=== PATIENT | female | born 1935 | race African-American/Black ===

== ENCOUNTER 2020-02-01 10:15 | Inpatient (IN) | payer MEDICARE, OTHER ==
[~2020-02-01] VITALS: Ht 167.6 cm; Wt 81.2 kg
--- NOTE | 2020-02-01 10:28 | Emergency Room Report ---
History of Present Illness General Chief Complaint: Lower Back Pain or Injury Source: Patient Present Illness HPI , Presents after increased right-sided flank pain. Onset of symptoms last night. Pain is worsened throughout the day. Previous surgery for diverticulitis. States that she had prior history of right-sided weakness from CVA in the past. Reports having normal bowel movements. States she is not been vomiting. 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 Reports urinating normally. Denies any fever. Patient was brought in by EMS. Patient states she previously had rash with Percocet. 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 Patient History Past Medical History: see triage record Reviewed Nursing Documentation: PMH: Agreed; PSxH: Agreed Nursing Documentation-PMH Hx Hypertension: Yes Hx Cerebrovascular Accident: Yes - 2019 Review of Systems All Other Systems: negative except mentioned in HPI Physical Exam Vital Signs Date Time Temp Pulse Resp B/P (MAP) Pulse Ox O2 Delivery O2 Flow Rate FiO2 02/01/20 10:15 98.8 100 18 180/90 (120) 99 Room Air Sp02 EP Interpretation: reviewed, normal General Appearance: normal inspection, alert, GCS 15, Chronically Ill Head: atraumatic ENT: normal ENT inspection, hearing grossly normal, normal voice Neck: normal inspection, full range of motion, supple, no bony tend Respiratory: normal inspection, lungs clear, normal breath sounds, no respiratory distress, no retraction, no wheezing Cardiovascular #1: regular rate, rhythm, no edema Gastrointestinal: normal inspection, normal bowel sounds, non tender, soft, no guarding, no hernia Genitourinary: no CVA tenderness Musculoskeletal: normal inspection, back normal Neurologic: alert, business intelligence engineer III-XII nml as tested, oriented x3, responsive, speech normal, normal inspection, other - right-sided weakness Psychiatric: normal inspection, judgement/insight normal, mood/affect normal Medical Decision Making Diagnostic Impression: Primary Impression: Symptomatic cholelithiasis Additional Impressions: Urinary tract infection Paraplegia ER Course Patient presented for right-sided flank pain. Differential diagnosis include was not limited to kidney stone, pyelonephritis, bowel obstruction, among others. Because of complexity of patient's case laboratory tests and imaging studies were ordered.CT imaging read by radiology showed multiple gallstones as well as scarring to the right lung, there is also noted to be some recently passed 4 mm renal calculus. Patient was given IV antibiotics. She is given pain medications. Dr. Saldana was contacted for inpatient management due to panel physician patient's multiple comorbidities. Labs Test 02/01/20 10:35 02/01/20 11:20 White Blood Count 9.4 K/UL (4.8-10.8) Red Blood Count 6.38 M/UL (4.20-5.40) Hemoglobin 15.5 G/DL (12.0-16.0) Hematocrit 50.1 % (37.0-47.0) Mean Corpuscular Volume 78 FL (80-99) Mean Corpuscular Hemoglobin 24.4 PG (27.0-31.0) Mean Corpuscular Hemoglobin Concent 31.0 G/DL (32.0-36.0) Red Cell Distribution Width 16.5 % (11.6-14.8) Platelet Count 508 K/UL (150-450) Mean Platelet Volume 5.9 FL (6.5-10.1) Neutrophils (%) (Auto) 70.1 % (45.0-75.0) Lymphocytes (%) (Auto) 17.8 % (20.0-45.0) Monocytes (%) (Auto) 6.3 % (1.0-10.0) Eosinophils (%) (Auto) 2.1 % (0.0-3.0) Basophils (%) (Auto) 3.6 % (0.0-2.0) Prothrombin Time 10.7 SEC (9.30-11.50) Prothromb Time International Ratio 1.0 (0.9-1.1) Activated Partial Thromboplast Time 25 SEC (23-33) Sodium Level 139 MMOL/L (136-145) Potassium Level 4.6 MMOL/L (3.5-5.1) Chloride Level 106 MMOL/L (98-107) Carbon Dioxide Level 27 MMOL/L (21-32) Anion Gap 6 mmol/L (5-15) Blood Urea Nitrogen 15 mg/dL (7-18) Creatinine 0.6 MG/DL (0.55-1.30) Estimat Glomerular Filtration Rate > 60 mL/min (>60) Glucose Level 117 MG/DL (74-106) Calcium Level 9.0 MG/DL (8.5-10.1) Total Bilirubin 0.5 MG/DL (0.2-1.0) Aspartate Amino Transf (AST/SGOT) 19 U/L (15-37) Alanine Aminotransferase (ALT/SGPT) 11 U/L (12-78) Alkaline Phosphatase 159 U/L (46-116) Troponin I 0.000 ng/mL (0.000-0.056) Total Protein 7.9 G/DL (6.4-8.2) Albumin 3.4 G/DL (3.4-5.0) Globulin 4.5 g/dL Albumin/Globulin Ratio 0.8 (1.0-2.7) Lipase 104 U/L (73-393) Urine Color Yellow Urine Appearance Cloudy Urine pH 6 (4.5-8.0) Urine Specific [place] 1.020 (1.005-1.035) Urine Protein 1+ (NEGATIVE) Urine Glucose (UA) Negative (NEGATIVE) Urine Ketones Negative (NEGATIVE) Urine Blood Negative (NEGATIVE) Urine Nitrite Negative (NEGATIVE) Urine Bilirubin Negative (NEGATIVE) Urine Urobilinogen Normal MG/DL (0.0-1.0) Urine Leukocyte Esterase 3+ (NEGATIVE) Urine RBC 2-4 /HPF (0 - 2) Urine WBC Tntc /HPF (0 - 2) Urine Squamous Epithelial Cells Moderate /LPF (NONE/OCC) Urine Bacteria Moderate /HPF (NONE) Last Vital Signs Date Time Temp Pulse Resp B/P (MAP) Pulse Ox O2 Delivery O2 Flow Rate FiO2 02/01/20 10:15 98.8 100 18 180/90 (120) 99 Room Air Status: improved Disposition: ADMITTED INPATIENT Condition: Stable Sanjeev Millard MD Feb 01, 2020 10:28
[2020-02-01] MEDS ORDERED: Morphine Sulfate 2mg/ml Inj(IV/IM USE ONLY) IVP ONE (10:30)
--- NOTE | 2020-02-01 10:40 | NUR ---
ED Nurse Note: Pt was brought in by ambulance from home d/t RT sided flank pain that got worsen today at 0500. Pt is AOx4, calm and cooperative, per EMS, pt's a bedridden (-) trauma/injury/fall; mentioned pt's pain has been going on for months already. Pt presents with multiple dry scratches on LT forearm d/t itchiness as pt stated. Pt was placed on bed, hooked to monitor, safety measures in placed.
--- NOTE | 2020-02-01 10:42 | NUR ---
ED Nurse Note: pt taken to CT.
[2020-02-01 10:49] VITALS: BP 180/90
[2020-02-01 10:53] LABS: BASOPHILS % (AUTO) 3.6 % (0.0-2.0); EOSINOPHILS % (AUTO) 2.1 % (0.0-3.0); HEMATOCRIT 50.1 % (37.0-47.0); HEMOGLOBIN 15.5 G/DL (12.0-16.0); LYMPHOCYTES % (AUTO) 17.8 % (20.0-45.0); MEAN CORPUSCULAR VOLUME 78 FL (80-99); MONOCYTES % (AUTO) 6.3 % (1.0-10.0); NEUTROPHILS % (AUTO) 70.1 % (45.0-75.0); PLATELET COUNT 508 K/UL (150-450); RED BLOOD COUNT 6.38 M/UL (4.20-5.40); RED CELL DISTRIBUTION WIDTH 16.5 % (11.6-14.8); WHITE BLOOD COUNT 9.4 K/UL (4.8-10.8)
[2020-02-01 11:02] LABS: ANION GAP 6 mmol/L (5-15); BLOOD UREA NITROGEN 15 mg/dL (7-18); CARBON DIOXIDE 27 MMOL/L (21-32); CHLORIDE 106 MMOL/L (98-107); CREATININE 0.6 MG/DL (0.55-1.30); POTASSIUM 4.6 MMOL/L (3.5-5.1); SODIUM 139 MMOL/L (136-145)
[2020-02-01 11:07] LABS: ALANINE AMINOTRANSFERASE 11 U/L (12-78); ALBUMIN 3.4 G/DL (3.4-5.0); ALBUMIN/GLOBULIN RATIO 0.8 (1.0-2.7); ALKALINE PHOSPHATASE 159 U/L (46-116); ASPARTATE AMINO TRANSFERASE 19 U/L (15-37); BILIRUBIN,TOTAL 0.5 MG/DL (0.2-1.0)
[2020-02-01] MEDS ORDERED: DiphenhydrAMINE 50mg/ml Inj IVP ONE (11:15)
--- NOTE | 2020-02-01 11:31 | NUR ---
ED Nurse Note: Mary Kate Carbone - daughter
--- NOTE | 2020-02-01 12:06 | Diagnostic Imaging Report ---
Indication: Right-sided flank pain Technique: Spiral acquisitions obtained through the abdomen and pelvis. No oral contrast utilized, per emergency room physician request No IV contrast utilized, per referring physician request.. Multiplanar reconstructions were generated. Total dose length product 530 mGycm. CTDIvol(s) 9 mGy. Dose reduction achieved using automated exposure control Comparison: None Findings: No renal or ureteral calculi, hydronephrosis, or hydroureter. There is a 5 mm calculus dependently in the right side of the bladder lumen. Lack of IV contrast limits assessment of the renal parenchyma. No renal parenchymal mass or cyst demonstrated. Lack of IV contrast limits assessment of the other solid organs. The liver is unremarkable. The gallbladder contains multiple gallstones. No biliary ductal dilatation. The pancreas, spleen, adrenals are unremarkable. No retroperitoneal or mesenteric mass or adenopathy. The uterus demonstrates multiple masses, several calcified. No adnexal mass demonstrated. There is a scar in the right anterolateral proximal thigh. There is a small fat-containing umbilical hernia. The bones demonstrate degenerative spondylosis changes and mild lumbar scoliotic deformity. The included lung bases demonstrate some atelectasis and possibly scarring. There is bilateral lower lobe bronchial wall thickening demonstrated. There are severe degenerative changes of the left hip as well as a posttraumatic deformity of the left hip. Lack of enteric contrast limits assessment of the GI tract. There are colonic diverticula. No evidence of acute diverticulitis. The proximal colon is upper limits of normal in caliber, stool-filled. The appendix is normal. No small bowel distention. No free or loculated intraperitoneal gas or fluid is evident. Impression: 5 mm calculus in the right side of the bladder lumen. Acuity indeterminate. Given stated clinical history, possibly recently passed, although there is no hydronephrosis, hydroureter, or other abnormality to suggest such. Limited assessment of the GI tract, due to lack of enteric contrast administration Considerable proximal colonic stool. Correlate with any clinical history of constipation Colonic diverticulosis. No evidence of diverticulitis. Cholelithiasis Fibroid uterus. Evidence of multiple old degenerated calcified fibroids Degenerative changes of the spine and left hip and mild scoliotic deformity. Other findings as noted, including small fat-containing umbilical hernia,, basilar pulmonary atelectatic changes and possible scarring. The CT scanner at [facility] is accredited by the [employer] and the scans are performed using protocols designed to limit radiation exposure to as low as reasonably achievable to attain images of sufficient resolution adequate for diagnostic evaluation.
[2020-02-01 12:09] LABS: APPEARANCE,URINE CLOUDY; BILIRUBIN, URINE NEGATIVE (NEGATIVE); GLUCOSE, URINE (UA) NEGATIVE (NEGATIVE); KETONES,URINE NEGATIVE (NEGATIVE); LEUKOCYTE ESTERASE ,URINE 3+ (NEGATIVE); NITRITE,URINE NEGATIVE (NEGATIVE); PH,URINE 6 (4.5-8.0); PROTEIN,URINE 1+ (NEGATIVE); UROBILINOGEN,URINE NORMAL MG/DL (0.0-1.0)
[2020-02-01 12:10] LABS: COLOR,URINE YELLOW
[2020-02-01 13:00] VITALS: BP 133/74
[2020-02-01] MEDS ORDERED: cefTRIAXone 2 GM in NS 55 ML IVPB ONE (13:30)
[2020-02-01 15:13] VITALS: BP 121/75
--- NOTE | 2020-02-01 15:46 | NUR ---
ED Nurse Note: Report given to DANNI Dunlap in Telemetry Unit.
--- NOTE | 2020-02-01 15:55 | NUR ---
NURSE NOTES: Received report from DANNI Barnes.
[2020-02-01 16:20] VITALS: BP 158/87
[2020-02-01] MEDS ORDERED: GABAPENTIN100 MG ORAL (16:20)
[2020-02-01] MEDS ORDERED: ADALAT10 MG ORAL (16:20)
--- NOTE | 2020-02-01 16:22 | NUR ---
ED Nurse Note: Pt was transferred to Telemetry Unit under the care of Dr. Saldana. report given to DANNI Dunlap. Pt was transferred to stable condition. Family aware of pt transfer. All belongings was sent with pt.
[2020-02-01] MEDS ORDERED: Varibar Pudding 230ml MC PRN (16:45)
[2020-02-01] MEDS ORDERED: Varibar Nectar 240ml MC PRN (16:45)
[2020-02-01] MEDS ORDERED: Varibar Thin Liquid powder 148gm MC PRN (16:45)
[2020-02-01] MEDS ORDERED: Varibar Honey 250ml MC PRN (16:45)
--- NOTE | 2020-02-01 16:46 | History & Physical ---
History and Physical History & Physicial IM H&P CC: R flank pain Active Scripts Medications Dose Route/Sig Max Daily Dose Days Date Category Nifedipine* (Nifedipine) 10 Mg Capsule Unknown Dose ORAL EVERY 6 HOURS 02/01/20 Reported Gabapentin* (Gabapentin) 100 Mg Capsule Unknown Dose ORAL THREE TIMES A DAY 02/01/20 Reported HPI: 84 F h/o CVA p/w R flank pain x 1 day. No FC, no CP, no SOB, no NVDC, marva PO. AFVSS in ER, + UTI, CT urogram with non-obstructing R sided kidney stone. S/ P IVF, benadryl, tylenol and Zofran in ER. Feels better PMH: R BG CVA H/O SBO and GS panc PSH: Lapartomy, endoscopies ALL: Acetaminophen, Lisinopril, Oxycodone MEDS: Nifedipine 90 mg PO qDaily, Gabapentin 300 TID SHX: Prior NHR, lives at home, supportive family, , no RADHA use FHX: N/C ROS: Neg other than HPI PE: Last 24 Hour Vital Signs Date Time Temp Pulse Resp B/P (MAP) Pulse Ox O2 Delivery O2 Flow Rate FiO2 02/01/20 15:13 98.8 99 23 121/75 100 Room Air 02/01/20 13:00 98.8 92 26 133/74 100 Room Air 02/01/20 11:28 98.8 02/01/20 10:49 98.8 18 180/90 99 Room Air 02/01/20 10:15 98.8 100 18 180/90 (120) 99 Room Air Elderly female with dysarthria, AAOx3, slurred speech, baseline R sided weakness NC/AT, OPC c MMM Supple s LAD or JVD CTA RRR RLQ TTP, no RG, S/ND c NABS No C/C/E Laboratory Tests Test 02/01/20 10:35 02/01/20 11:20 White Blood Count 9.4 K/UL (4.8-10.8) Red Blood Count 6.38 M/UL (4.20-5.40) H Hemoglobin 15.5 G/DL (12.0-16.0) Hematocrit 50.1 % (37.0-47.0) H Mean Corpuscular Volume 78 FL (80-99) L Mean Corpuscular Hemoglobin 24.4 PG (27.0-31.0) L Mean Corpuscular Hemoglobin Concent 31.0 G/DL (32.0-36.0) L Red Cell Distribution Width 16.5 % (11.6-14.8) H Platelet Count 508 K/UL (150-450) H Mean Platelet Volume 5.9 FL (6.5-10.1) L Neutrophils (%) (Auto) 70.1 % (45.0-75.0) Lymphocytes (%) (Auto) 17.8 % (20.0-45.0) L Monocytes (%) (Auto) 6.3 % (1.0-10.0) Eosinophils (%) (Auto) 2.1 % (0.0-3.0) Basophils (%) (Auto) 3.6 % (0.0-2.0) H Prothrombin Time 10.7 SEC (9.30-11.50) Prothromb Time International Ratio 1.0 (0.9-1.1) Activated Partial Thromboplast Time 25 SEC (23-33) Sodium Level 139 MMOL/L (136-145) Potassium Level 4.6 MMOL/L (3.5-5.1) Chloride Level 106 MMOL/L (98-107) Carbon Dioxide Level 27 MMOL/L (21-32) Anion Gap 6 mmol/L (5-15) Blood Urea Nitrogen 15 mg/dL (7-18) Creatinine 0.6 MG/DL (0.55-1.30) Estimat Glomerular Filtration Rate > 60 mL/min (>60) Glucose Level 117 MG/DL (74-106) H Calcium Level 9.0 MG/DL (8.5-10.1) Total Bilirubin 0.5 MG/DL (0.2-1.0) Aspartate Amino Transf (AST/SGOT) 19 U/L (15-37) Alanine Aminotransferase (ALT/SGPT) 11 U/L (12-78) L Alkaline Phosphatase 159 U/L (46-116) H Troponin I 0.000 ng/mL (0.000-0.056) Total Protein 7.9 G/DL (6.4-8.2) Albumin 3.4 G/DL (3.4-5.0) Globulin 4.5 g/dL Albumin/Globulin Ratio 0.8 (1.0-2.7) L Lipase 104 U/L (73-393) Urine Color Yellow Urine Appearance Cloudy Urine pH 6 (4.5-8.0) Urine Specific [place] 1.020 (1.005-1.035) Urine Protein 1+ (NEGATIVE) H Urine Glucose (UA) Negative (NEGATIVE) Urine Ketones Negative (NEGATIVE) Urine Blood Negative (NEGATIVE) Urine Nitrite Negative (NEGATIVE) Urine Bilirubin Negative (NEGATIVE) Urine Urobilinogen Normal MG/DL (0.0-1.0) Urine Leukocyte Esterase 3+ (NEGATIVE) H Urine RBC 2-4 /HPF (0 - 2) H Urine WBC Tntc /HPF (0 - 2) H Urine Squamous Epithelial Cells Moderate /LPF (NONE/OCC) H Urine Bacteria Moderate /HPF (NONE) H 02/01/20 CT AP: Impression: 5 mm calculus in the right side of the bladder lumen. Acuity indeterminate. Given stated clinical history, possibly recently passed, although there is no hydronephrosis, hydroureter, or other abnormality to suggest such. Limited assessment of the GI tract, due to lack of enteric contrast administration Considerable proximal colonic stool. Correlate with any clinical history of constipation Colonic diverticulosis. No evidence of diverticulitis. Cholelithiasis Fibroid uterus. Evidence of multiple old degenerated calcified fibroids Degenerative changes of the spine and left hip and mild scoliotic deformity. Other findings as noted, including small fat-containing umbilical hernia,, basilar pulmonary atelectatic changes and possible scarring. 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 Cont[facility] Olivas MD Feb 01, 2020 16:46
--- NOTE | 2020-02-01 17:14 | Infectious Diseases Prog Note ---
Assessment/Plan Assessment/Plan Full consult dictated: A) 1) uti/pyelonephritis 2) pmh noted 3) allergies - noted P) 1) ceftriaxone 2) f/u on urine culture 3) thank you Subjective Allergies: Coded Allergies: ACETAMINOPHEN (Verified Allergy, Unknown, 02/01/20) LISINOPRIL (Verified Allergy, Unknown, 02/01/20) OXYCODONE (Verified Allergy, Unknown, 02/01/20) Objective Last 24 Hour Vital Signs Date Time Temp Pulse Resp B/P (MAP) Pulse Ox O2 Delivery O2 Flow Rate FiO2 02/01/20 15:13 98.8 99 23 121/75 100 Room Air 02/01/20 13:00 98.8 92 26 133/74 100 Room Air 02/01/20 11:28 98.8 02/01/20 10:49 98.8 18 180/90 99 Room Air 02/01/20 10:15 98.8 100 18 180/90 (120) 99 Room Air Height (Feet): 5 Height (Inches): 6.00 Weight (Pounds): 180 Laboratory Tests Test 02/01/20 10:35 02/01/20 11:20 White Blood Count 9.4 K/UL (4.8-10.8) Red Blood Count 6.38 M/UL (4.20-5.40) H Hemoglobin 15.5 G/DL (12.0-16.0) Hematocrit 50.1 % (37.0-47.0) H Mean Corpuscular Volume 78 FL (80-99) L Mean Corpuscular Hemoglobin 24.4 PG (27.0-31.0) L Mean Corpuscular Hemoglobin Concent 31.0 G/DL (32.0-36.0) L Red Cell Distribution Width 16.5 % (11.6-14.8) H Platelet Count 508 K/UL (150-450) H Mean Platelet Volume 5.9 FL (6.5-10.1) L Neutrophils (%) (Auto) 70.1 % (45.0-75.0) Lymphocytes (%) (Auto) 17.8 % (20.0-45.0) L Monocytes (%) (Auto) 6.3 % (1.0-10.0) Eosinophils (%) (Auto) 2.1 % (0.0-3.0) Basophils (%) (Auto) 3.6 % (0.0-2.0) H Prothrombin Time 10.7 SEC (9.30-11.50) Prothromb Time International Ratio 1.0 (0.9-1.1) Activated Partial Thromboplast Time 25 SEC (23-33) Sodium Level 139 MMOL/L (136-145) Potassium Level 4.6 MMOL/L (3.5-5.1) Chloride Level 106 MMOL/L (98-107) Carbon Dioxide Level 27 MMOL/L (21-32) Anion Gap 6 mmol/L (5-15) Blood Urea Nitrogen 15 mg/dL (7-18) Creatinine 0.6 MG/DL (0.55-1.30) Estimat Glomerular Filtration Rate > 60 mL/min (>60) Glucose Level 117 MG/DL (74-106) H Calcium Level 9.0 MG/DL (8.5-10.1) Total Bilirubin 0.5 MG/DL (0.2-1.0) Aspartate Amino Transf (AST/SGOT) 19 U/L (15-37) Alanine Aminotransferase (ALT/SGPT) 11 U/L (12-78) L Alkaline Phosphatase 159 U/L (46-116) H Troponin I 0.000 ng/mL (0.000-0.056) Total Protein 7.9 G/DL (6.4-8.2) Albumin 3.4 G/DL (3.4-5.0) Globulin 4.5 g/dL Albumin/Globulin Ratio 0.8 (1.0-2.7) L Lipase 104 U/L (73-393) Urine Color Yellow Urine Appearance Cloudy Urine pH 6 (4.5-8.0) Urine Specific [place] 1.020 (1.005-1.035) Urine Protein 1+ (NEGATIVE) H Urine Glucose (UA) Negative (NEGATIVE) Urine Ketones Negative (NEGATIVE) Urine Blood Negative (NEGATIVE) Urine Nitrite Negative (NEGATIVE) Urine Bilirubin Negative (NEGATIVE) Urine Urobilinogen Normal MG/DL (0.0-1.0) Urine Leukocyte Esterase 3+ (NEGATIVE) H Urine RBC 2-4 /HPF (0 - 2) H Urine WBC Tntc /HPF (0 - 2) H Urine Squamous Epithelial Cells Moderate /LPF (NONE/OCC) H Urine Bacteria Moderate /HPF (NONE) H Current Medications Medications (Trade) Dose Ordered Sig/Uriel Route PRN Reason Start Time Stop Time Status Last Admin Dose Admin Acetaminophen (Tylenol) 650 mg Q4H PRN ORAL Mild Pain (Pain Scale 1-3) 02/01/20 16:30 03/02/20 16:29 Barium Sulfate (Varibar Honey) 250 ml NOW PRN MC RAD 02/01/20 16:45 02/04/20 16:43 Barium Sulfate (Varibar Wright) 240 ml NOW PRN MC RAD 02/01/20 16:45 02/04/20 16:43 Barium Sulfate (Varibar Pudding) 230 ml NOW PRN RAD 02/01/20 16:45 02/04/20 16:43 Barium Sulfate (Varibar Thin Liquid powder) 148 gm NOW PRN RAD 02/01/20 16:45 02/04/20 16:43 Ceftriaxone Sodium 1 gm/ Dextrose 55 ml @ 110 mls/hr Q24H IVPB 02/02/20 09:00 02/09/20 08:59 Diphenhydramine HCl (Benadryl) 25 mg Q6H PRN ORAL Itching 02/01/20 16:30 03/02/20 16:29 Gabapentin (Neurontin) 300 mg THREE TIMES A DAY ORAL 02/01/20 18:00 03/02/20 17:59 Heparin Sodium (Porcine) (Heparin 5000 units/ml) 5,000 units EVERY 12 HOURS SUBQ 02/01/20 21:00 03/17/20 20:59 Nifedipine (Procardia XL) 30 mg DAILY ORAL 02/02/20 09:00 03/03/20 08:59 Ondansetron HCl (Zofran) 4 mg Q6H PRN IVP Nausea & Vomiting 02/01/20 16:30 03/02/20 16:29 Sodium Chloride 1,000 ml @ 75 mls/hr [id number] IV 02/01/20 16:45 03/02/20 16:44 Darrell Alcazar MD Feb 01, 2020 17:14
[2020-02-01] MEDS ORDERED: cefTRIAXone 1 GM in D5W 55 ML IVPB SCH (18:00)
--- NOTE | 2020-02-01 19:14 | Consultation ---
DATE OF CONSULTATION: 02/01/2020 INFECTIOUS DISEASE CONSULTATION CONSULTING PHYSICIAN: Darrell Alcazar MD. ATTENDING PHYSICIAN: Judd Saldana MD. REFERRING PHYSICIAN: Contreras Olivas MD. REASON FOR CONSULTATION: UTI and pyelonephritis. CHIEF COMPLAINT: Patient's chief complaint coming into the hospital is abdominal discomfort, abdominal pain. HISTORY OF PRESENT ILLNESS: This is a very pleasant 84-year-old female who comes in to [facility] with abdominal pain. She also had right sided flank pain. She has history of diverticulitis in the past. Patient had a CT scan of the abdomen and pelvis, which showed the following. It showed a 5 millimeter calculus with renal stone on the right. Also the CT scan showed no evidence of abscess. Patient's urinalysis was consistent with significant urinary tract infection including too many to count white blood cells and 3+ leukocyte esterase. Patient was empirically started on Rocephin. Urine culture is pending. Case discussed with Dr. Contreras Olivas. Patient has no COVID symptoms such as cough, shortness of breath or productive sputum or fever or chills. Patient will be continued on Rocephin for complicated UTI and pyelonephritis for now. She is allergic to penicillin, but tolerates Rocephin. REVIEW OF SYSTEMS: CONSTITUTIONAL: Generalized fatigue. No focal weakness. She denies any fever, chills, night sweats, or weight loss. HEAD AND NECK: No headache, neck stiffness, thrush, or dysphagia. CARDIAC: No chest pain or palpitations. GASTROINTESTINAL: No nausea, vomiting, or diarrhea. She has abdominal discomfort and right flank pain. PULMONARY: No congestion or shortness of breath. Mild secretions. SKIN: No rash or itching. EXTREMITIES: No extremity pain. NEUROLOGIC: No seizures. Generalized fatigue. No focal weakness. PAST MEDICAL HISTORY: Patient has a past medical history of diverticulitis requiring surgery. She has history of right-sided weakness. She has history of CVA. The CVA caused right-sided weakness. She has history of hypertension. No history of diabetes or cancer mentioned. She has history of weakness and dysarthria. Again, likely secondary to CVA. ALLERGIES: Include acetaminophen, lisinopril, and oxycodone. She also told me penicillin. Tolerates Rocephin. SOCIAL HISTORY: Negative for smoking, alcohol, or drug abuse. FAMILY HISTORY: Noncontributory. No mention of tuberculosis or cancer. MEDICATIONS: Upon reviewing the MAR, she is on following medications. She is on ceftriaxone, nifedipine, heparin, gabapentin or Neurontin. She is on barium sulfate, IV fluids, acetaminophen, Zofran p.r.n., diphenhydramine p.r.n. Outside medications noted and reconciliated. She as an outpatient was on lisinopril. PHYSICAL EXAMINATION: VITAL SIGNS: Temperature is 98.8, pulse rate is 99, respiratory 23, blood pressure 121/75, saturation 100% on room air. GENERAL: Alert, responsive. No acute distress. HEAD AND NECK: Oral exam, no thrush. Eye exam, no icterus. Normocephalic. Neck is supple. No JVD. HEART: Regular. No gallop or murmur. No friction rub. ABDOMEN: Soft. Positive bowel sounds. Nontender. No rebound. LUNGS: Clear bilaterally. No rhonchi or rales. SKIN: No rash or dermatitis. MUSCULOSKELETAL: No septic arthritis. Lower extremities are without cellulitis. PERIPHERAL VASCULAR: No cyanosis or gangrene. GENITOURINARY: No Fernández. She has right-sided CVA tenderness. LINE SITES: Without phlebitis. NEUROLOGIC: Intact. Nonfocal. She has some right-sided weakness. Alert, oriented however. LABORATORY DATA: Creatinine 0.6. White count 9.4, hemoglobin 15.5. UA had too many to count white blood cells, 3+ leukocyte esterase, and moderate bacteria. Urine culture is pending. CT scan of the abdomen and pelvis showed the following. It showed a 5 mm calculus in the right. Shows there was no hydronephrosis at this point. No abscess mentioned. No diverticulitis mentioned on CT scan of the pelvis. ASSESSMENT AND PLAN: 1. Patient has a complicated UTI, renal calculi with right-sided CVA pain thus consistent with pyelonephritis. Patient will be continued on Rocephin for gram-negative coverage. Continue Rocephin for complicated UTI and pyelonephritis. Check urine culture. 2. CVA with right-sided weakness and dysarthria. 3. Kidney stone. 4. Urology been consulted. 5. Hypertension. 6. Blood pressure treatment per Dr. Olivas. 7. History of diverticulitis requiring surgery in the past. 8. No history of diabetes or cancer. 9. Monitor for aspiration with history of CVA and right-sided weakness. 10. No evidence or signs and symptoms of COVID-19 infection. 11. Allergies to acetaminophen, lisinopril, and oxycodone. She also told me penicillin, but that is not documented. I am not clear. She tolerated Rocephin. 12. Family history is noncontributory. 13. Social history is negative. 14. MAR is noted. 15. Case was discussed also with the RN. 16. Case discussed with Dr. Olivas. 17. Continue treatment per primary consultants. Darrell Alcazar M.D. DR: VALORIE JOB#: [id number] CC:
--- NOTE | 2020-02-01 19:45 | NUR ---
NURSE HAND-OFF REPORT: Important Events on Shift: Admission Patient Status: Stable Diet: Pending Orders: N/A Pending Results/Labs:N/A Pending MD notification:N/A Latest Vital Signs: Temperature 98.8 , Pulse 103 , B/P 156 /84 , Respiratory Rate 16 , O2 SAT 99 , Room Air, O2 Flow Rate . Vital Sign Comment: N/A EKG Rhythm: Sinus Tachycardia Rhythm change?: N MD Notified?: - MD Response: Latest Mckinney Fall Score: 55 Fall Risk: High Risk Safety Measures: Call light Within Reach, Bed Alarm Zone 2, Side Rails Side Rails x3, Bed position Low and Locked. Fall Precautions: Yellow Socks Yellow Gown Door Sign Patient Fall Education Report given to DANNI Lawrence.
--- NOTE | 2020-02-01 19:47 | NUR ---
NURSE NOTES: Report received from Fabi RAZO. Patient is awake and alert x 4. Patient is noted to be on room air, no complaints of chest pain or shortness of breath this time. Patient is noted to have garbled speech. This is noted to be from a previous cerebral vascular accident that also left the patient with right sided weakness. Patient does have complaints of slight right sided flank pain, but states that the pain is manageable and does not want pain medication at this time. Patient is noted to have left forearm 20 nneka IV access with fluids running per MD orders. Patient is noted to have to be a recent admission. Admission completed by Fabi RAZO. Bed is locked, alarmed, and in lowest position. Call light in reach. Will continue to follow plan of care.
[2020-02-01 20:00] VITALS: BP 146/96
--- NOTE | 2020-02-01 20:15 | Consultation ---
DATE OF CONSULTATION: 02/01/2020 CONSULTING PHYSICIAN: Mars Arcos MD REFERRING PHYSICIAN: Contreras Olivas MD REASON FOR CONSULTATION: For evaluation of UTI and nephrolithiasis. HISTORY OF PRESENT ILLNESS: This is an 85-year-old female. She was admitted to the hospital because of vague right-sided flank pain. She was noted to have positive UA with white cells and red cells consistent with probable UTI. Urology evaluation has been requested. The patient does have some urinary frequency. Overall, she is a poor historian. Most of the history was obtained from the chart. PAST MEDICAL HISTORY: Significant for hypertension and cerebrovascular accident. PAST SURGICAL HISTORY: Unknown. MEDICATIONS: Current medications in the hospital were reviewed. She is currently on Rocephin, Procardia, heparin, Neurontin, Tylenol, and Zofran. ALLERGIES: Acetaminophen, lisinopril, and oxycodone. SOCIAL HISTORY: Currently nonsmoker. FAMILY HISTORY: Noncontributory. REVIEW OF SYSTEMS: As above. PHYSICAL EXAMINATION: GENERAL: Elderly female in no acute distress. VITAL SIGNS: Temperature is 98.8, blood pressure 152/87, pulse 107, and respirations 18. HEENT: Normocephalic. NECK: Supple. ABDOMEN: Soft. EXTREMITIES: No clubbing or cyanosis. LABORATORY DATA: White count is 9.4, hemoglobin 15.5, and platelets of 508,000. BUN is 15, creatinine 0.6, potassium 4.6. UA shows 1+ protein, 2-4 rbc's, too numerous to count wbc's, moderate bacteria. There are no cultures on record yet. DIAGNOSTIC IMAGING STUDIES: The patient had a CT scan of the abdomen and pelvis. There was mention of a 5 mm calculus in the right side of the bladder lumen, possibly recently passed, although at the time of this imaging study, there was no hydronephrosis noted. IMPRESSION: 1. Pyuria, probable UTI. 2. Flank pain history. 3. Hematuria. 4. Proteinuria. 5. Lower urinary tract symptoms. 6. Rule out neurogenic bladder. 7. Bladder calculus. PLAN AND DISCUSSION: Again, the patient did have vague flank pain and this appears to be improving. UA is consistent with UTI. I would agree with antibiotics as ordered. We will follow up on the cultures and adjust from there. At some point, the patient will need to have cystoscopy electively to evaluate the bladder. The upper tract appeared to be without hydronephrosis at this time. The stone in the bladder may have been a small stone that she just recently passed. I will follow the patient. Any other recommendations will be forthcoming. Thank you for this consultation. Mars Arcos M.D. DR: Juan JOB#: [id number] CC:
[2020-02-01] MEDS: Heparin 5000 units/ml inj SUBQ SCH (20:41)
--- NOTE | 2020-02-01 20:46 | NUR ---
NURSE NOTES: verified with patient about Acetaminophen allergy. Patient states that she does not have an allergy to acetaminophen. Will removed from allergy list, Doctor Deisy aware.
[2020-02-02] VITALS: BP 142/75
[2020-02-02 04:00] VITALS: BP 139/78
--- NOTE | 2020-02-02 07:44 | NUR ---
NURSE NOTES: report received from Howard RAZO, awake and oriented, verbalized needs, HOB elevated, no c/o pain not in distress.
--- NOTE | 2020-02-02 07:53 | NUR ---
NURSE HAND-OFF REPORT: Important Events on Shift: Patient was asleep and stable throught the shift. Patient had no complaints of pain. Patient Status: full code Diet: regular mech soft Pending Orders: cystoscopy Pending Results/Labs:none Pending MD notification:none Latest Vital Signs: Temperature 97.7 , Pulse 98 , B/P 139 /78 , Respiratory Rate 20 , O2 SAT 96 , Room Air, O2 Flow Rate . Vital Sign Comment: within normal limits. EKG Rhythm: Sinus Rhythm Rhythm change?: N MD Notified?: - MD Response: Latest Mckinney Fall Score: 35 Fall Risk: Medium Risk Safety Measures: Call light Within Reach, Bed Alarm Zone 1, Side Rails Side Rails x2, Bed position Low and Locked. Fall Precautions: Yellow Socks Yellow Gown Door Sign Patient Fall Education Report given to Eduarda RAZO.
[2020-02-02 08:00] LABS: BASOPHILS % (AUTO) 3.3 % (0.0-2.0); EOSINOPHILS % (AUTO) 6.8 % (0.0-3.0); HEMATOCRIT 41.5 % (37.0-47.0); HEMOGLOBIN 12.7 G/DL (12.0-16.0); LYMPHOCYTES % (AUTO) 26.6 % (20.0-45.0); MEAN CORPUSCULAR VOLUME 79 FL (80-99); MONOCYTES % (AUTO) 8.7 % (1.0-10.0); NEUTROPHILS % (AUTO) 54.6 % (45.0-75.0); PLATELET COUNT 206 K/UL (150-450); RED BLOOD COUNT 5.26 M/UL (4.20-5.40); RED CELL DISTRIBUTION WIDTH 16.4 % (11.6-14.8); WHITE BLOOD COUNT 5.7 K/UL (4.8-10.8)
[2020-02-02 08:10] VITALS: BP 131/73
[2020-02-02] MEDS: cefTRIAXone 1 GM in D5W 55 ML IVPB SCH (08:44)
[2020-02-02] MEDS: Heparin 5000 units/ml inj SUBQ SCH ×2 (08:45→20:32)
--- NOTE | 2020-02-02 08:56 | Pulmonology Progress Note ---
Simona Rios LASER ENGRAVER 02/02/20 0856: Subjective ROS Limited/Unobtainable: Yes Allergies: Coded Allergies: LISINOPRIL (Verified Allergy, Unknown, 02/01/20) OXYCODONE (Verified Allergy, Unknown, 02/01/20) Subjective reports right lower quadrant pain no BM x 3 days denies CP, SOB no fevers/chills Objective Last 24 Hour Vital Signs Date Time Temp Pulse Resp B/P (MAP) Pulse Ox O2 Delivery O2 Flow Rate FiO2 02/02/20 08:10 98.4 98 20 131/73 (92) 97 02/02/20 04:00 78 02/02/20 04:00 97.7 98 20 139/78 (98) 96 02/02/20 00:00 101 02/02/20 00:00 98.7 98 20 142/75 (97) 97 02/01/20 21:00 Room Air 02/01/20 20:00 114 02/01/20 20:00 98.0 105 20 146/96 (113) 94 02/01/20 16:53 Room Air 02/01/20 16:52 103 02/01/20 16:22 98.8 98 16 156/84 99 Room Air 02/01/20 16:20 107 18 158/87 (110) 97 02/01/20 15:13 98.8 99 23 121/75 100 Room Air 02/01/20 13:00 98.8 92 26 133/74 100 Room Air 02/01/20 11:28 98.8 02/01/20 10:49 98.8 18 180/90 99 Room Air 02/01/20 10:15 98.8 100 18 180/90 (120) 99 Room Air Intake and Output 02/01/20 02/02/20 19:00 07:00 Intake Total 825 ml Balance 825 ml Intake IV Total 825 ml # Voids 2 # Bowel Movements 1 1 General Appearance: other - awake, responsive elderly AA female in NAD HEENT: normocephalic, atraumatic, anicteric, mucous membranes moist Respiratory: lungs clear, no respiratory distress, no accessory muscle use Cardiovascular: normal rate, regular rhythm Abdomen: normal bowel sounds, non distended, other - RLQ tenderenss, no rebound , no guarding, Extremities: no edema Skin: other - patches of vitiligo LE Neurologic: abnormal gait, alert, responsive, other - RSW/chronic, slurred speech Musculoskeletal: atrophy - BLE Microbiology Date/Time Source Procedure Growth Status 02/01/20 11:20 Urine,Clean Catch Urine Culture - Preliminary Resulted Laboratory Tests 02/01/20 10:35: White Blood Count 9.4, Red Blood Count 6.38H, Hemoglobin 15.5, Hematocrit 50.1H , Mean Corpuscular Volume 78L, Mean Corpuscular Hemoglobin 24.4L, Mean Corpuscular Hemoglobin Concent 31.0L, Red Cell Distribution Width 16.5H, Platelet Count 508H, Mean Platelet Volume 5.9L, Neutrophils (%) (Auto) 70.1, Lymphocytes (%) (Auto) 17.8L, Monocytes (%) (Auto) 6.3, Eosinophils (%) (Auto) 2.1, Basophils (%) (Auto) 3.6H, Prothrombin Time 10.7, Prothromb Time International Ratio 1.0, Activated Partial Thromboplast Time 25, Sodium Level 139, Potassium Level 4.6, Chloride Level 106, Carbon Dioxide Level 27, Anion Gap 6, Blood Urea Nitrogen 15, Creatinine 0.6, Estimat Glomerular Filtration Rate > 60, Glucose Level 117H, Calcium Level 9.0, Total Bilirubin 0.5, Aspartate Amino Transf (AST/SGOT) 19, Alanine Aminotransferase (ALT/SGPT) 11L, Alkaline Phosphatase 159H, Troponin I 0.000, Total Protein 7.9, Albumin 3.4, Globulin 4.5, Albumin/Globulin Ratio 0.8L, Lipase 104 02/01/20 11:20: Urine Color Yellow, Urine Appearance Cloudy, Urine pH 6, Urine Specific [place] 1.020, Urine Protein 1+H, Urine Glucose (UA) Negative, Urine Ketones Negative, Urine Blood Negative, Urine Nitrite Negative, Urine Bilirubin Negative, Urine Urobilinogen Normal, Urine Leukocyte Esterase 3+H, Urine RBC 2-4H, Urine WBC TntcH, Urine Squamous Epithelial Cells ModerateH, Urine Bacteria ModerateH 02/02/20 07:00: White Blood Count 5.7, Red Blood Count 5.26, Hemoglobin 12.7, Hematocrit 41.5, Mean Corpuscular Volume 79L, Mean Corpuscular Hemoglobin 24.1L, Mean Corpuscular Hemoglobin Concent 30.6L, Red Cell Distribution Width 16.4H, Platelet Count 206#, Mean Platelet Volume 6.1L, Neutrophils (%) (Auto) 54.6, Lymphocytes (%) (Auto) 26.6, Monocytes (%) (Auto) 8.7, Eosinophils (%) (Auto) 6.8H, Basophils (%) (Auto) 3.3H, Sodium Level [Pending], Potassium Level [ Pending], Chloride Level [Pending], Carbon Dioxide Level [Pending], Blood Urea Nitrogen [Pending], Creatinine [Pending], Estimat Glomerular Filtration Rate [ Pending], Glucose Level [Pending], Calcium Level [Pending] Current Medications Medications (Trade) Dose Ordered Sig/Uriel Route PRN Reason Start Time Stop Time Status Last Admin Dose Admin Acetaminophen (Tylenol) 650 mg Q4H PRN ORAL Mild Pain (Pain Scale 1-3) 02/01/20 16:30 03/02/20 16:29 Barium Sulfate (Varibar Honey) 250 ml NOW PRN MC RAD 02/01/20 16:45 02/04/20 16:43 Barium Sulfate (Varibar [place]) 240 ml NOW PRN MC RAD 02/01/20 16:45 02/04/20 16:43 Barium Sulfate (Varibar Pudding) 230 ml NOW PRN MC RAD 02/01/20 16:45 02/04/20 16:43 Barium Sulfate (Varibar Thin Liquid powder) 148 gm NOW PRN MC RAD 02/01/20 16:45 02/04/20 16:43 Ceftriaxone Sodium 1 gm/ Dextrose 55 ml @ 110 mls/hr Q24H IVPB 02/02/20 09:00 02/09/20 08:59 Diphenhydramine HCl (Benadryl) 25 mg Q6H PRN ORAL Itching 02/01/20 16:30 03/02/20 16:29 Gabapentin (Neurontin) 300 mg THREE TIMES A DAY ORAL 02/01/20 18:00 03/02/20 17:59 02/01/20 18:34 Heparin Sodium (Porcine) (Heparin 5000 units/ml) 5,000 units EVERY 12 HOURS SUBQ 02/01/20 21:00 03/17/20 20:59 02/01/20 20:41 Nifedipine (Procardia XL) 30 mg DAILY ORAL 02/02/20 09:00 03/03/20 08:59 Ondansetron HCl (Zofran) 4 mg Q6H PRN IVP Nausea & Vomiting 02/01/20 16:30 03/02/20 16:29 Sodium Chloride 1,000 ml @ 75 mls/hr [id number] IV 02/01/20 16:45 03/02/20 16:44 02/02/20 05:37 Assessment/Plan Assessment/Plan ASSESSMENT/PROBLEM LIST: * R flank pain 2/2 R sided non-obstructive nephrolithiasis * UTI, possible pyelo * 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 * HTN * constipation * diverticulosis w/out current evidence of diverticulitis with prior hx of exp lap due to SBO PLAN: * tele * continue IVF hydration * Abx: CTx, F/U CX's, ID eval appreciated * Pain control/supportive care * eval appreciated, no hydro at this time; stone in the bladder may have been a small stone that she just recently passed, need cystoscopy later, can be done as OP * Monitor volumes and renal function * BP management iwth CCB, optimize treatment as needed * Aspiration precautions, SPRINKL[employer] WORKER eval * DVT Px: Hep SQ * Bowel regimen * FC case discussed and evaluated by supervising physician Judd Saldana MD 02/02/20 1323: Subjective Allergies: Coded Allergies: LISINOPRIL (Verified Allergy, Unknown, 02/01/20) OXYCODONE (Verified Allergy, Unknown, 02/01/20) Assessment/Plan Assessment/Plan Patient seen and examined with LASER ENGRAVER. Agree with above A&P as it reflects our joint deliberations. Simona Rios NP Feb 02, 2020 08:56 Judd Saldana MD Feb 02, 2020 13:23
--- NOTE | 2020-02-02 09:08 | Urology Progress Note ---
Assessment/Plan Assessment/Plan: 1. Pyuria, probable UTI. 2. Flank pain history. 3. Hematuria. 4. Proteinuria. 5. Lower urinary tract symptoms. 6. Rule out neurogenic bladder. 7. Bladder calculus. monitor clinically abx as ordered f/u on urine cx renal fxn stable cysto later Subjective Allergies: Coded Allergies: LISINOPRIL (Verified Allergy, Unknown, 02/01/20) OXYCODONE (Verified Allergy, Unknown, 02/01/20) Subjective all noted, feels fair vague pain Objective Last 24 Hour Vital Signs Date Time Temp Pulse Resp B/P (MAP) Pulse Ox O2 Delivery O2 Flow Rate FiO2 02/02/20 08:44 98 131/73 02/02/20 08:10 98.4 98 20 131/73 (92) 97 02/02/20 04:00 78 02/02/20 04:00 97.7 98 20 139/78 (98) 96 02/02/20 00:00 101 02/02/20 00:00 98.7 98 20 142/75 (97) 97 02/01/20 21:00 Room Air 02/01/20 20:00 114 02/01/20 20:00 98.0 105 20 146/96 (113) 94 02/01/20 16:53 Room Air 02/01/20 16:52 103 02/01/20 16:22 98.8 98 16 156/84 99 Room Air 02/01/20 16:20 107 18 158/87 (110) 97 02/01/20 15:13 98.8 99 23 121/75 100 Room Air 02/01/20 13:00 98.8 92 26 133/74 100 Room Air 02/01/20 11:28 98.8 02/01/20 10:49 98.8 18 180/90 99 Room Air 02/01/20 10:15 98.8 100 18 180/90 (120) 99 Room Air Intake and Output 02/01/20 02/02/20 19:00 07:00 Intake Total 825 ml Balance 825 ml IV Total 825 ml # Voids 2 # Bowel Movements 1 1 Microbiology Date/Time Source Procedure Growth Status 02/01/20 11:20 Urine,Clean Catch Urine Culture - Preliminary Resulted Current Medications Medications (Trade) Dose Ordered Sig/Ruiel Route PRN Reason Start Time Stop Time Status Last Admin Dose Admin Acetaminophen (Tylenol) 650 mg Q4H PRN ORAL Mild Pain (Pain Scale 1-3) 02/01/20 16:30 03/02/20 16:29 Barium Sulfate (Varibar Honey) 250 ml NOW PRN RAD 02/01/20 16:45 02/04/20 16:43 Barium Sulfate (Varibar [place]) 240 ml NOW PRN RAD 02/01/20 16:45 02/04/20 16:43 Barium Sulfate (Varibar Pudding) 230 ml NOW PRN RAD 02/01/20 16:45 02/04/20 16:43 Barium Sulfate (Varibar Thin Liquid powder) 148 gm NOW PRN RAD 02/01/20 16:45 02/04/20 16:43 Ceftriaxone Sodium 1 gm/ Dextrose 55 ml @ 110 mls/hr Q24H IVPB 02/02/20 09:00 02/09/20 08:59 02/02/20 08:44 Diphenhydramine HCl (Benadryl) 25 mg Q6H PRN ORAL Itching 02/01/20 16:30 03/02/20 16:29 Gabapentin (Neurontin) 300 mg THREE TIMES A DAY ORAL 02/01/20 18:00 03/02/20 17:59 02/02/20 08:44 Heparin Sodium (Porcine) (Heparin 5000 units/ml) 5,000 units EVERY 12 HOURS SUBQ 02/01/20 21:00 03/17/20 20:59 02/02/20 08:45 Nifedipine (Procardia XL) 30 mg DAILY ORAL 02/02/20 09:00 03/03/20 08:59 02/02/20 08:44 Ondansetron HCl (Zofran) 4 mg Q6H PRN IVP Nausea & Vomiting 02/01/20 16:30 03/02/20 16:29 Sodium Chloride 1,000 ml @ 75 mls/hr [id number] IV 02/01/20 16:45 03/02/20 16:44 02/02/20 05:37 Laboratory Tests 02/01/20 10:35: White Blood Count 9.4, Red Blood Count 6.38H, Hemoglobin 15.5, Hematocrit 50.1H , Mean Corpuscular Volume 78L, Mean Corpuscular Hemoglobin 24.4L, Mean Corpuscular Hemoglobin Concent 31.0L, Red Cell Distribution Width 16.5H, Platelet Count 508H, Mean Platelet Volume 5.9L, Neutrophils (%) (Auto) 70.1, Lymphocytes (%) (Auto) 17.8L, Monocytes (%) (Auto) 6.3, Eosinophils (%) (Auto) 2.1, Basophils (%) (Auto) 3.6H, Prothrombin Time 10.7, Prothromb Time International Ratio 1.0, Activated Partial Thromboplast Time 25, Sodium Level 139, Potassium Level 4.6, Chloride Level 106, Carbon Dioxide Level 27, Anion Gap 6, Blood Urea Nitrogen 15, Creatinine 0.6, Estimat Glomerular Filtration Rate > 60, Glucose Level 117H, Calcium Level 9.0, Total Bilirubin 0.5, Aspartate Amino Transf (AST/SGOT) 19, Alanine Aminotransferase (ALT/SGPT) 11L, Alkaline Phosphatase 159H, Troponin I 0.000, Total Protein 7.9, Albumin 3.4, Globulin 4.5, Albumin/Globulin Ratio 0.8L, Lipase 104 02/01/20 11:20: Urine Color Yellow, Urine Appearance Cloudy, Urine pH 6, Urine Specific [place] 1.020, Urine Protein 1+H, Urine Glucose (UA) Negative, Urine Ketones Negative, Urine Blood Negative, Urine Nitrite Negative, Urine Bilirubin Negative, Urine Urobilinogen Normal, Urine Leukocyte Esterase 3+H, Urine RBC 2-4H, Urine WBC TntcH, Urine Squamous Epithelial Cells ModerateH, Urine Bacteria ModerateH 02/02/20 07:00: White Blood Count 5.7, Red Blood Count 5.26, Hemoglobin 12.7, Hematocrit 41.5, Mean Corpuscular Volume 79L, Mean Corpuscular Hemoglobin 24.1L, Mean Corpuscular Hemoglobin Concent 30.6L, Red Cell Distribution Width 16.4H, Platelet Count 206#, Mean Platelet Volume 6.1L, Neutrophils (%) (Auto) 54.6, Lymphocytes (%) (Auto) 26.6, Monocytes (%) (Auto) 8.7, Eosinophils (%) (Auto) 6.8H, Basophils (%) (Auto) 3.3H, Sodium Level [Pending], Potassium Level [ Pending], Chloride Level [Pending], Carbon Dioxide Level [Pending], Blood Urea Nitrogen [Pending], Creatinine [Pending], Estimat Glomerular Filtration Rate [ Pending], Glucose Level [Pending], Calcium Level [Pending] Height (Feet): 5 Height (Inches): 6.00 Weight (Pounds): 175 Objective exam stable urine by tanmay hanson/Mars Felix MD Feb 02, 2020 09:08
[2020-02-02 09:54] LABS: ANION GAP 6 mmol/L (5-15); BLOOD UREA NITROGEN 12 mg/dL (7-18); CALCIUM 8.9 MG/DL (8.5-10.1); CARBON DIOXIDE 29 MMOL/L (21-32); CHLORIDE 111 MMOL/L (98-107); CREATININE 0.7 MG/DL (0.55-1.30); SODIUM 146 MMOL/L (136-145)
[2020-02-02] MEDS ORDERED: Fleet's Enema 133ml RECTAL SCH (10:15)
[2020-02-02] MEDS: Docusate 100mg cap ORAL SCH ×2 (10:37→17:47)
[2020-02-02 12:05] VITALS: BP 142/66
--- NOTE | 2020-02-02 12:13 | NUR ---
CASE MANAGEMENT:INITIAL REVIEW 84 YR OLD FEMALE BIBA FROM HOME CC;LOWER BACK PAIN OR INJURY SI;ABDOMINAL PAIN. SYMPTOMATIC CHOLELITHIASIS. 98.8 107 26 180/90 97% ON RA PLT 508 BG 117 ALP 159 UA+ PROTEIN, LEUKOCYTE ESTERASE, RBC, WBC, SQUAMOUS EPITH CELLS, BACTERIA URINE CX ~ RESULT PENDING ABD/PELVIS CT ~ 5 mm calculus in the right side of the bladder lumen. Acuity indeterminate. Given stated clinical history, possibly recently passed, although there is no hydronephrosis, hydroureter, or other abnormality to suggest such. Cholelithiasis IS;IVF NS BOLUS MORPHINE IV ZOFRAN IV BENADRYL IV ROCEPHIN IV ADMITTED TO TELE TELE STATUS DCP;PATIENT IS FROM HOME
--- NOTE | 2020-02-02 15:34 | NUR ---
NURSE NOTES:WOUND CARE NOTES:Pt presented on admission with Full thickness Pressure Injury Sacrum/R Buttocks. Base of wound is moist,lindsey with scattered areas of Slough, and Biofilm, Borders are irregular. Small amt serosanguineous exudate.(L)7cm x (W)7.5cm x(D)0.2cm. Surrounding non-blanchable erythema with additional shearing periwound. Unstageable Pressure Injury Cleft of Buttocks(L)2.5cm x (W)0.9cm. Base of Pressure Injury is 95% slough,5% lindsey with surrounding non-blanching erythema. Scattered epithelial and hyperpigmentation noted to L buttocks. R lower extremity internally rotated. Xerosis skin Bilat lower ext. An area of hyperpigmentation noted to R tibia. Both heels are non-blanchable but wihtou fluctuance. Pt complained both heels are tender to minimal touch. Tx.Plan: Cleanse wounds Buttocks with Saline. Apply Therahoney . Apply Moisture Barrier Paste Periwound. Cover with Optifoam drsg. Change every 3 days and prn. Moisturize Both lower ext with Phytoplex Lotion. Apply Cavilon Skin Barrier to both heels and Malleoli. Cover each site with Optifoam drsg. Change every 7 days and prn. Reposition at least every 2hours or as tolerated. Off-load heels with Pillow.
[2020-02-02 16:00] VITALS: BP 129/54
[2020-02-02] MEDS ORDERED: 1/2 NS 1000ml IV ONE (16:21)
--- NOTE | 2020-02-02 19:22 | NUR ---
NURSE HAND-OFF REPORT: Important Events on Shift:no acute changes Patient Status: alert and orineted Diet: mech soft Pending Orders: none Pending Results/Labs:none Pending MD notification:n/a Latest Vital Signs: Temperature 98.6 , Pulse 99 , B/P 129 /54 , Respiratory Rate 18 , O2 SAT 97 , Room Air, O2 Flow Rate . Vital Sign Comment: stable EKG Rhythm: Sinus Rhythm Rhythm change?: N MD Notified?: - MD Response: Latest Mckinney Fall Score: 55 Fall Risk: High Risk Safety Measures: Call light Within Reach, Bed Alarm Zone 1, Side Rails Side Rails x2, Bed position Low and Locked. Fall Precautions: Yellow Socks Yellow Gown Door Sign Patient Fall Education Report given to Rios RAZO.
--- NOTE | 2020-02-02 19:25 | NUR ---
NURSE NOTES: Report received from DANNI Lerner. Patient awake, alert, and oriented. Able to verbalize needs. IV intact and flushed. On room air, saturating well. Breathing unlabored and even. Seen resting in bed. No complaints of pain or discomfort at this time. Will follow wound care as planned. Bed in lowest position, brakes engaged, bed alarm on. Bed rails raised x2. Call light placed within reach. Will continue to monitor.
[2020-02-02 20:00] VITALS: BP 133/69
[2020-02-02] MEDS ORDERED: Miralax 17gm pkt ORAL SCH (21:00)
[2020-02-03] VITALS: BP 136/68
[2020-02-03 04:00] VITALS: BP 159/74
--- NOTE | 2020-02-03 05:50 | NUR ---
NURSE NOTES: Patient's IV site noted to be leaking. Informed patient that a new IV needs to be inserted for her to received her IV hydration. 2 RNs tried to convince patient the benefits of her IV hydration. Patient refused.
--- NOTE | 2020-02-03 07:20 | NUR ---
NURSE NOTES: Received report from Rios/DANNI, Observed patient awake,and alert eating breakfast in bed. On room air, no acute distress/SOB noted. Complaining of Itchiness all over the body.No IV access at this time. Bed in low position and locked, Call light within reach. Encouraged to use call light when needed. Bed alarm is on, side rails up x3. Will continue plan of care.
--- NOTE | 2020-02-03 07:25 | NUR ---
NURSE HAND-OFF REPORT: Important Events on Shift:[Patient refused IV access during the shift. Also verbalized wanting to go home.] Patient Status: [FC] Diet: [Regular, mech soft] Pending Orders: [] Pending Results/Labs:[] Pending MD notification:[] Latest Vital Signs: Temperature 97.9 , Pulse 98 , B/P 159 /74 , Respiratory Rate 22 , O2 SAT 97 , Room Air, O2 Flow Rate . Vital Sign Comment: [] EKG Rhythm: Sinus Rhythm Rhythm change?: N MD Notified?: - MD Response: Latest Mckinney Fall Score: 55 Fall Risk: High Risk Safety Measures: Call light Within Reach, Bed Alarm Zone 1, Side Rails Side Rails x2, Bed position Low and Locked. Fall Precautions: Yellow Socks Yellow Gown Door Sign Patient Fall Education Report given to [DANNI Travis].
--- NOTE | 2020-02-03 09:02 | Urology Progress Note ---
Assessment/Plan Assessment/Plan: 1. Pyuria, probable UTI. 2. Flank pain history. 3. Hematuria. 4. Proteinuria. 5. Lower urinary tract symptoms. 6. Rule out neurogenic bladder. 7. Bladder calculus. monitor clinically abx as ordered renal fxn stable cysto later Subjective Allergies: Coded Allergies: LISINOPRIL (Verified Allergy, Unknown, 02/01/20) OXYCODONE (Verified Allergy, Unknown, 02/01/20) Subjective all noted, feels fair vague pain Objective Last 24 Hour Vital Signs Date Time Temp Pulse Resp B/P (MAP) Pulse Ox O2 Delivery O2 Flow Rate FiO2 02/03/20 04:00 98 02/03/20 04:00 97.9 86 22 159/74 (102) 97 02/03/20 00:00 95 02/03/20 00:00 98.8 97 20 136/68 (90) 94 02/02/20 21:00 Room Air 02/02/20 20:00 87 02/02/20 20:00 97.9 90 20 133/69 (90) 97 02/02/20 16:00 98.6 99 18 129/54 (79) 97 02/02/20 16:00 84 02/02/20 12:41 108 02/02/20 12:05 98.3 99 21 142/66 (91) 02/02/20 09:45 Room Air Intake and Output 02/02/20 02/03/20 18:59 06:59 Intake Total 2155 ml 150 ml Output Total 700 ml 400 ml Balance 1455 ml -250 ml Intake Oral 1200 ml 150 ml IV Total 955 ml Output Urine Total 700 ml 400 ml # Voids 1 # Bowel Movements 3 2 Microbiology Date/Time Source Procedure Growth Status 02/01/20 11:20 Urine,Clean Catch Urine Culture - Final Mixed Urogenital Contaminants Complete Current Medications Medications (Trade) Dose Ordered Sig/Uriel Route PRN Reason Start Time Stop Time Status Last Admin Dose Admin Acetaminophen (Tylenol) 650 mg Q4H PRN ORAL Mild Pain (Pain Scale 1-3) 02/01/20 16:30 03/02/20 16:29 Barium Sulfate (Varibar Honey) 250 ml NOW PRN MC RAD 02/01/20 16:45 02/04/20 16:43 Barium Sulfate (Varibar [place]) 240 ml NOW PRN MC RAD 02/01/20 16:45 02/04/20 16:43 Barium Sulfate (Varibar Pudding) 230 ml NOW PRN RAD 02/01/20 16:45 02/04/20 16:43 Barium Sulfate (Varibar Thin Liquid powder) 148 gm NOW PRN RAD 02/01/20 16:45 02/04/20 16:43 Ceftriaxone Sodium 1 gm/ Dextrose 55 ml @ 110 mls/hr Q24H IVPB 02/02/20 09:00 02/09/20 08:59 02/02/20 08:44 Diphenhydramine HCl (Benadryl) 25 mg Q6H PRN ORAL Itching 02/01/20 16:30 03/02/20 16:29 02/03/20 06:45 Docusate Sodium (Colace) 100 mg TWICE A DAY ORAL 02/02/20 10:15 03/03/20 10:14 02/02/20 17:47 Gabapentin (Neurontin) 300 mg THREE TIMES A DAY ORAL 02/01/20 18:00 03/02/20 17:59 02/02/20 17:46 Heparin Sodium (Porcine) (Heparin 5000 units/ml) 5,000 units EVERY 12 HOURS SUBQ 02/01/20 21:00 03/17/20 20:59 02/02/20 20:32 Nifedipine (Procardia XL) 30 mg DAILY ORAL 02/02/20 09:00 03/03/20 08:59 02/02/20 08:44 Ondansetron HCl (Zofran) 4 mg Q6H PRN IVP Nausea & Vomiting 02/01/20 16:30 03/02/20 16:29 Polyethylene Glycol (Miralax) 17 gm BEDTIME ORAL 02/02/20 21:00 03/03/20 20:59 02/02/20 20:29 Sodium Chloride 1,000 ml @ 75 mls/hr [id number] IV 02/02/20 11:00 03/03/20 10:59 02/03/20 00:29 Laboratory Tests 02/02/20 09:30: Sodium Level 146H, Potassium Level 4.0, Chloride Level 111H, Carbon Dioxide Level 29, Anion Gap 6, Blood Urea Nitrogen 12, Creatinine 0.7, Estimat Glomerular Filtration Rate > 60, Glucose Level 97, Calcium Level 8.9 Height (Feet): 5 Height (Inches): 6.00 Weight (Pounds): 175 Objective exam stable Mars Arcos MD Feb 03, 2020 09:02
--- NOTE | 2020-02-03 09:19 | Pulmonology Progress Note ---
Simona Rios HORSER UP 02/03/20 0919: Subjective ROS Limited/Unobtainable: Yes Allergies: Coded Allergies: LISINOPRIL (Verified Allergy, Unknown, 02/01/20) OXYCODONE (Verified Allergy, Unknown, 02/01/20) Subjective RLQ pain much improved had a small BM denies CP, SOB no fevers/chills Objective Last 24 Hour Vital Signs Date Time Temp Pulse Resp B/P (MAP) Pulse Ox O2 Delivery O2 Flow Rate FiO2 02/03/20 04:00 98 02/03/20 04:00 97.9 86 22 159/74 (102) 97 02/03/20 00:00 95 02/03/20 00:00 98.8 97 20 136/68 (90) 94 02/02/20 21:00 Room Air 02/02/20 20:00 87 02/02/20 20:00 97.9 90 20 133/69 (90) 97 02/02/20 16:00 98.6 99 18 129/54 (79) 97 02/02/20 16:00 84 02/02/20 12:41 108 02/02/20 12:05 98.3 99 21 142/66 (91) 02/02/20 09:45 Room Air Intake and Output 02/02/20 02/03/20 19:00 07:00 Intake Total 2155 ml 150 ml Output Total 700 ml 400 ml Balance 1455 ml -250 ml Intake Oral 1200 ml 150 ml IV Total 955 ml Output Urine Total 700 ml 400 ml # Voids 1 # Bowel Movements 3 2 General Appearance: other - awake, responsive elderly AA female in NAD HEENT: normocephalic, atraumatic, anicteric, mucous membranes moist Respiratory: lungs clear, no respiratory distress, no accessory muscle use Cardiovascular: normal rate, regular rhythm Abdomen: normal bowel sounds, non distended, other - RLQ tenderenss, no rebound , no guarding, Extremities: no edema Skin: other - patches of vitiligo LE Neurologic: abnormal gait, alert, responsive, other - RSW/chronic, slurred speech Musculoskeletal: atrophy - BLE Microbiology Date/Time Source Procedure Growth Status 02/01/20 11:20 Urine,Clean Catch Urine Culture - Final Mixed Urogenital Contaminants Complete Laboratory Tests 02/02/20 09:30: Sodium Level 146H, Potassium Level 4.0, Chloride Level 111H, Carbon Dioxide Level 29, Anion Gap 6, Blood Urea Nitrogen 12, Creatinine 0.7, Estimat Glomerular Filtration Rate > 60, Glucose Level 97, Calcium Level 8.9 Current Medications Medications (Trade) Dose Ordered Sig/Uriel Route PRN Reason Start Time Stop Time Status Last Admin Dose Admin Acetaminophen (Tylenol) 650 mg Q4H PRN ORAL Mild Pain (Pain Scale 1-3) 02/01/20 16:30 03/02/20 16:29 Barium Sulfate (Varibar Honey) 250 ml NOW PRN RAD 02/01/20 16:45 02/04/20 16:43 Barium Sulfate (Varibar [place]) 240 ml NOW PRN RAD 02/01/20 16:45 02/04/20 16:43 Barium Sulfate (Varibar Pudding) 230 ml NOW PRN RAD 02/01/20 16:45 02/04/20 16:43 Barium Sulfate (Varibar Thin Liquid powder) 148 gm NOW PRN RAD 02/01/20 16:45 02/04/20 16:43 Ceftriaxone Sodium 1 gm/ Dextrose 55 ml @ 110 mls/hr Q24H IVPB 02/02/20 09:00 02/09/20 08:59 02/02/20 08:44 Diphenhydramine HCl (Benadryl) 25 mg Q6H PRN ORAL Itching 02/01/20 16:30 03/02/20 16:29 02/03/20 06:45 Docusate Sodium (Colace) 100 mg TWICE A DAY ORAL 02/02/20 10:15 03/03/20 10:14 02/02/20 17:47 Gabapentin (Neurontin) 300 mg THREE TIMES A DAY ORAL 02/01/20 18:00 03/02/20 17:59 02/02/20 17:46 Heparin Sodium (Porcine) (Heparin 5000 units/ml) 5,000 units EVERY 12 HOURS SUBQ 02/01/20 21:00 03/17/20 20:59 02/02/20 20:32 Nifedipine (Procardia XL) 30 mg DAILY ORAL 02/02/20 09:00 03/03/20 08:59 02/02/20 08:44 Ondansetron HCl (Zofran) 4 mg Q6H PRN IVP Nausea & Vomiting 02/01/20 16:30 03/02/20 16:29 Polyethylene Glycol (Miralax) 17 gm BEDTIME ORAL 02/02/20 21:00 03/03/20 20:59 02/02/20 20:29 Sodium Chloride 1,000 ml @ 75 mls/hr [id number] IV 02/02/20 11:00 03/03/20 10:59 02/03/20 00:29 Assessment/Plan Assessment/Plan ASSESSMENT/PROBLEM LIST: * R flank pain 2/2 R sided non-obstructive nephrolithiasis * UTI, possible pyelo * 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 * HTN * constipation * diverticulosis w/out current evidence of diverticulitis with prior hx of exp lap due to SBO PLAN: * tele * continue IVF hydration * Abx: CTx, UCX + mixed nita , fup with further ID recs * Pain control/supportive care * eval appreciated, no hydro at this time; stone in the bladder may have been a small stone that she just recently passed, need cystoscopy later, can be done as OP * Monitor volumes and renal function * BP management iwth CCB, optimize treatment as needed * Aspiration precautions, STONE RIGGER eval * DVT Px: Hep SQ * Bowel regimen, had BM, need along term * FC * transfer to [facility] floor case discussed and evaluated by supervising physician Judd Saldana MD 02/03/20 1345: Subjective Allergies: Coded Allergies: LISINOPRIL (Verified Allergy, Unknown, 02/01/20) OXYCODONE (Verified Allergy, Unknown, 02/01/20) Assessment/Plan Assessment/Plan Patient seen and examined with HORSER UP. Agree with above A&P as it reflects our joint deliberations. Simona Rios HORSER UP Feb 03, 2020 09:19 Judd Saldana MD Feb 03, 2020 13:45
[2020-02-03] MEDS: Docusate 100mg cap ORAL SCH ×2 (09:46→17:03)
[2020-02-03] MEDS: cefTRIAXone 1 GM in D5W 55 ML IVPB SCH (09:47)
[2020-02-03] MEDS: Heparin 5000 units/ml inj SUBQ SCH ×2 (09:48→20:52)
[2020-02-03 10:20] LABS: BASOPHILS % (AUTO) 1.5 % (0.0-2.0); EOSINOPHILS % (AUTO) 4.9 % (0.0-3.0); HEMATOCRIT 44.4 % (37.0-47.0); HEMOGLOBIN 13.6 G/DL (12.0-16.0); MEAN CORPUSCULAR VOLUME 79 FL (80-99); NEUTROPHILS % (AUTO) 57.5 % (45.0-75.0); PLATELET COUNT 448 K/UL (150-450); RED BLOOD COUNT 5.59 M/UL (4.20-5.40); RED CELL DISTRIBUTION WIDTH 16.6 % (11.6-14.8); WHITE BLOOD COUNT 6.7 K/UL (4.8-10.8)
[2020-02-03 10:26] LABS: ANION GAP 7 mmol/L (5-15); BLOOD UREA NITROGEN 9 mg/dL (7-18); CALCIUM 8.1 MG/DL (8.5-10.1); CARBON DIOXIDE 29 MMOL/L (21-32); CHLORIDE 111 MMOL/L (98-107); CREATININE 0.7 MG/DL (0.55-1.30); POTASSIUM 3.8 MMOL/L (3.5-5.1); SODIUM 147 MMOL/L (136-145)
--- NOTE | 2020-02-03 11:38 | NUR ---
NURSE NOTES: Patient transferred from Tele 214-2 to 401-2; I received report from Angy RN; patient awake, alert x2, confused, forgetful; on room air, no sing of shortness of breath; no sing of distress and chest pain; IV Left For-arm, 1/2NS @75cc running; wound picture taken upon receiving patient and wound care provided; belonging lists crossed match and signed by transferring and receiving nurses. side rails up x2, breaks engaged, bed at lowest position, bed alarm on; call light within reach; will keep monitoring.
--- NOTE | 2020-02-03 11:40 | NUR ---
TRANSFER TO FLOOR: Patient transferred to [facility].[address], room 401-2 Per Simona Rios HORSES OR MULES TEAMSTER. Report given to Delmi/DANNI. Belonging check done with receiving nurse. Patient is in stable condition. Endorsed plan of care.
[2020-02-03 12:00] VITALS: BP 146/84
--- NOTE | 2020-02-03 15:38 | Infectious Diseases Prog Note ---
Assessment/Plan Assessment/Plan ASSESSMENT AND PLAN: 1. uti, pyelonephritis, complicated uti, renal calculi - ceftriaxone - day # 3 - urine culture with mixed organisms - f/u urinalysis with reflex - monitor labs 2. CVA with right-sided weakness and dysarthria. 3. Kidney stone. 4. Urology been consulted. 5. Hypertension. 6. Blood pressure treatment per Dr. Olivas. 7. History of diverticulitis requiring surgery in the past. 8. No history of diabetes or cancer. 9. Monitor for aspiration with history of CVA and right-sided weakness. 10. No evidence or signs and symptoms of COVID-19 infection. 11. Allergies to acetaminophen, lisinopril, and oxycodone. She also told me penicillin, but that is not documented. I am not clear. She tolerated Rocephin. 12. Family history is noncontributory. 13. Social history is negative. 14. MAR is noted. 15. Case was discussed also with the RN. 16. Case discussed with Dr. Olivas. 17. Continue treatment per primary consultants. Subjective Constitutional: Denies: fever HEENT: Denies: congestion Respiratory: Denies: shortness of breath Cardiovascular: Denies: chest pain Gastrointestinal/Abdominal: Denies: nausea, vomiting, diarrhea Genitourinary: Reports: other - no garcia Neurologic: Denies: headache Psychiatric: Denies: depression Skin: Denies: rash Hematologic: Denies: bleeding Musculoskeletal: Denies: pain Allergies: Coded Allergies: LISINOPRIL (Verified Allergy, Unknown, 02/01/20) OXYCODONE (Verified Allergy, Unknown, 02/01/20) Objective Last 24 Hour Vital Signs Date Time Temp Pulse Resp B/P (MAP) Pulse Ox O2 Delivery O2 Flow Rate FiO2 02/03/20 12:00 97.5 95 18 146/84 (104) 95 02/03/20 09:47 86 129/65 02/03/20 09:00 Room Air 02/03/20 08:00 102 02/03/20 04:00 98 02/03/20 04:00 97.9 86 22 159/74 (102) 97 02/03/20 00:00 95 02/03/20 00:00 98.8 97 20 136/68 (90) 94 9/12/20 21:00 Room Air 02/02/20 20:00 87 02/02/20 20:00 97.9 90 20 133/69 (90) 97 02/02/20 16:00 98.6 99 18 129/54 (79) 97 02/02/20 16:00 84 Height (Feet): 5 Height (Inches): 6.00 Weight (Pounds): 175 General Appearance: no acute distress HEENT: normocephalic, atraumatic, anicteric, mucous membranes moist Respiratory/Chest: lungs clear, normal breath sounds, no respiratory distress, no accessory muscle use Cardiovascular: normal rate, regular rhythm, no gallop/murmur, no JVD Abdomen: normal bowel sounds, soft, non tender, no organomegaly, non distended Genitourinary: other - no garcia, less cva pain Extremities: no cyanosis Skin: no rash Neurologic/Psychiatric: rehabilitation supervisor II-XII grossly normal, alert, oriented x 3, responsive Lymphatic: no neck adenopathy Musculoskeletal: no effusion CT abdomen and pelvis: Impression: 5 mm calculus in the right side of the bladder lumen. Acuity indeterminate. Given stated clinical history, possibly recently passed, although there is no hydronephrosis, hydroureter, or other abnormality to suggest such. Limited assessment of the GI tract, due to lack of enteric contrast administration Considerable proximal colonic stool. Correlate with any clinical history of constipation Colonic diverticulosis. No evidence of diverticulitis. Cholelithiasis Fibroid uterus. Evidence of multiple old degenerated calcified fibroids Degenerative changes of the spine and left hip and mild scoliotic deformity. Other findings as noted, including small fat-containing umbilical hernia,, basilar pulmonary atelectatic changes and possible scarring. Microbiology Date/Time Source Procedure Growth Status 02/01/20 11:20 Urine,Clean Catch Urine Culture - Final Mixed Urogenital Contaminants Complete Laboratory Tests Test 02/03/20 09:40 White Blood Count 6.7 K/UL (4.8-10.8) Red Blood Count 5.59 M/UL (4.20-5.40) H Hemoglobin 13.6 G/DL (12.0-16.0) Hematocrit 44.4 % (37.0-47.0) Mean Corpuscular Volume 79 FL (80-99) L Mean Corpuscular Hemoglobin 24.3 PG (27.0-31.0) L Mean Corpuscular Hemoglobin Concent 30.6 G/DL (32.0-36.0) L Red Cell Distribution Width 16.6 % (11.6-14.8) H Platelet Count 448 K/UL (150-450) # Mean Platelet Volume 6.5 FL (6.5-10.1) Neutrophils (%) (Auto) 57.5 % (45.0-75.0) Lymphocytes (%) (Auto) 27.0 % (20.0-45.0) Monocytes (%) (Auto) 9.0 % (1.0-10.0) Eosinophils (%) (Auto) 4.9 % (0.0-3.0) H Basophils (%) (Auto) 1.5 % (0.0-2.0) Sodium Level 147 MMOL/L (136-145) H Potassium Level 3.8 MMOL/L (3.5-5.1) Chloride Level 111 MMOL/L (98-107) H Carbon Dioxide Level 29 MMOL/L (21-32) Anion Gap 7 mmol/L (5-15) Blood Urea Nitrogen 9 mg/dL (7-18) Creatinine 0.7 MG/DL (0.55-1.30) Estimat Glomerular Filtration Rate > 60 mL/min (>60) Glucose Level 87 MG/DL (74-106) Calcium Level 8.1 MG/DL (8.5-10.1) L Current Medications Medications (Trade) Dose Ordered Sig/Uriel Route PRN Reason Start Time Stop Time Status Last Admin Dose Admin Acetaminophen (Tylenol) 650 mg Q4H PRN ORAL Mild Pain (Pain Scale 1-3) 02/03/20 12:30 03/02/20 16:29 Barium Sulfate (Varibar Honey) 250 ml NOW PRN RAD 02/03/20 16:45 02/04/20 16:43 Barium Sulfate (Varibar [place]) 240 ml NOW PRN RAD 02/03/20 16:45 02/04/20 16:43 Barium Sulfate (Varibar Pudding) 230 ml NOW PRN RAD 02/03/20 16:45 02/04/20 16:43 Barium Sulfate (Varibar Thin Liquid powder) 148 gm NOW PRN RAD 02/03/20 16:45 02/04/20 16:43 Ceftriaxone Sodium 1 gm/ Dextrose 55 ml @ 110 mls/hr Q24H IVPB 02/04/20 09:00 02/09/20 08:59 Diphenhydramine HCl (Benadryl) 25 mg Q6H PRN ORAL Itching 02/03/20 12:00 03/02/20 11:59 Docusate Sodium (Colace) 100 mg TWICE A DAY ORAL 02/03/20 18:00 03/03/20 10:14 Gabapentin (Neurontin) 300 mg THREE TIMES A DAY ORAL 02/03/20 13:00 03/02/20 17:59 02/03/20 12:24 Heparin Sodium (Porcine) (Heparin 5000 units/ml) 5,000 units EVERY 12 HOURS SUBQ 02/03/20 21:00 03/17/20 20:59 Nifedipine (Procardia XL) 30 mg DAILY ORAL 02/04/20 09:00 03/03/20 08:59 Ondansetron HCl (Zofran) 4 mg Q6H PRN IVP Nausea & Vomiting 02/03/20 12:00 03/02/20 11:59 Polyethylene Glycol (Miralax) 17 gm BEDTIME ORAL 02/03/20 21:00 03/03/20 20:59 Sodium Chloride 1,000 ml @ 75 mls/hr [id number] IV 02/03/20 11:30 03/03/20 10:59 02/03/20 12:26 Darrell Alcazar MD Feb 03, 2020 15:38
[2020-02-03 16:00] VITALS: BP 118/69
[2020-02-03] MEDS ORDERED: Varibar Nectar 240ml MC PRN (16:45)
[2020-02-03] MEDS ORDERED: Varibar Pudding 230ml MC PRN (16:45)
[2020-02-03] MEDS ORDERED: Varibar Thin Liquid powder 148gm MC PRN (16:45)
[2020-02-03] MEDS ORDERED: Varibar Honey 250ml MC PRN (16:45)
--- NOTE | 2020-02-03 16:49 | Consultation ---
History of Present Illness General Date patient seen: Feb 03, 2020 Reason for Hospitalization: Lower Back Pain or Injury Present Illness HPI This is a 84-year-old female multi-medical morbidities who presented to [facility] complaining of flank and abdominal pain. Was admitted for care management and work-up. Surgery was called to evaluate and assist with care. Patient seen, patient evaluated, chart reviewed. Patient states now she is feeling better since admission. Was given pain medication since pain is not resulted or resumed. Currently no nausea vomiting fever chills. Tolerating diet. No complaints. Allergies: Coded Allergies: LISINOPRIL (Verified Allergy, Unknown, 02/01/20) OXYCODONE (Verified Allergy, Unknown, 02/01/20) COVID-19 Screening Contact w/high risk pt: No Experienced COVID-19 symptoms?: No Medication History Scheduled Cefuroxime Axetil* (Cefuroxime*), 500 MG PO Q12HR Docusate Sodium* (Colace*), 100 MG ORAL TWICE A DAY Gabapentin* (Gabapentin*), 300 MG ORAL THREE TIMES A DAY, (Reported) Nifedipine Xl* (Procardia Xl*), 30 MG ORAL DAILY Polyethylene Glycol 3350 (Miralax), 17 GM ORAL BEDTIME Discontinued Medications Nifedipine (Nifedipine*), Unknown Dose ORAL EVERY 6 HOURS, (Reported) Discontinued Reason: Prescription changed Nifedipine Er* (Nifedipine Er*), 90 MG ORAL BEDTIME, (Reported) Discontinued Reason: Medication dose changed Patient History Limited by: age, medical condition History Provided By: Patient, Medical Record, PMD Healthcare decision maker Resuscitation status Advanced Directive on File Past Medical/Surgical History Past Medical/Surgical History: (1) Urinary tract infection (2) Paraplegia (3) Symptomatic cholelithiasis (4) Nephrolithiasis (5) UTI (urinary tract infection) Review of Systems Review of Symptoms General ROS: no weight loss or fever Psychological ROS: no depression or mood changes, no memory loss Ophthalmic ROS: no visual changes or eye irritation ENT ROS: no nasal congestion, hearing loss, dizziness Allergy and Immunology ROS: no allergic symptoms or urticaria Hematological and Lymphatic ROS: no swollen glands, unusual bleeding or bruising Endocrine ROS: no polyuria, polydipsia, weight changes, temperature intolerance Respiratory ROS: no cough, shortness of breath, or wheezing Cardiovascular ROS: no chest pain or dyspnea on exertion Gastrointestinal ROS: denies abdominal pain, bright red blood in stool. Musculoskeletal ROS: no myalgias or arthralgias Neurological ROS: no TIA or stroke symptoms Dermatological ROS: no new or changing skin lesions, rashes or pruritis Physical Exam Physical Exam General appearance: alert, cooperative, no distress, appears stated age Head: Normocephalic, without obvious abnormality, atraumatic Eyes: conjunctivae/corneas clear. PERRL, EOM's intact. Fundi benign Throat: Lips, mucosa, and tongue normal. Teeth and gums normal Neck: supple, symmetrical, trachea midline, no adenopathy, thyroid: not enlarged, symmetric, no tenderness/mass/nodules, no carotid bruit and no JVD Lungs: clear to auscultation bilaterally Heart: regular rate and rhythm, S1, S2 normal, no murmur, click, rub or gallop Abdomen: soft, non-tender. Bowel sounds normal. No masses, no organomegaly Extremities: extremities normal, atraumatic, no cyanosis or edema Pulses: 2+ and symmetric Skin: Skin color, texture, turgor normal. No rashes or lesions Neurologic: Grossly normal Last 24 Hour Vital Signs Date Time Temp Pulse Resp B/P (MAP) Pulse Ox O2 Delivery O2 Flow Rate FiO2 02/03/20 16:00 97.9 88 18 118/69 (85) 97 02/03/20 12:00 97.5 95 18 146/84 (104) 95 02/03/20 09:47 86 129/65 02/03/20 09:00 Room Air 02/03/20 08:00 102 02/03/20 04:00 98 02/03/20 04:00 97.9 86 22 159/74 (102) 97 02/03/20 00:00 95 02/03/20 00:00 98.8 97 20 136/68 (90) 94 02/02/20 21:00 Room Air 02/02/20 20:00 87 02/02/20 20:00 97.9 90 20 133/69 (90) 97 Intake and Output 02/02/20 02/03/20 19:00 07:00 Intake Total 2155 ml 150 ml Output Total 700 ml 400 ml Balance 1455 ml -250 ml Intake Oral 1200 ml 150 ml IV Total 955 ml Output Urine Total 700 ml 400 ml # Voids 1 # Bowel Movements 3 2 Laboratory Tests Test 02/03/20 09:40 White Blood Count 6.7 K/UL (4.8-10.8) Red Blood Count 5.59 M/UL (4.20-5.40) H Hemoglobin 13.6 G/DL (12.0-16.0) Hematocrit 44.4 % (37.0-47.0) Mean Corpuscular Volume 79 FL (80-99) L Mean Corpuscular Hemoglobin 24.3 PG (27.0-31.0) L Mean Corpuscular Hemoglobin Concent 30.6 G/DL (32.0-36.0) L Red Cell Distribution Width 16.6 % (11.6-14.8) H Platelet Count 448 K/UL (150-450) # Mean Platelet Volume 6.5 FL (6.5-10.1) Neutrophils (%) (Auto) 57.5 % (45.0-75.0) Lymphocytes (%) (Auto) 27.0 % (20.0-45.0) Monocytes (%) (Auto) 9.0 % (1.0-10.0) Eosinophils (%) (Auto) 4.9 % (0.0-3.0) H Basophils (%) (Auto) 1.5 % (0.0-2.0) Sodium Level 147 MMOL/L (136-145) H Potassium Level 3.8 MMOL/L (3.5-5.1) Chloride Level 111 MMOL/L (98-107) H Carbon Dioxide Level 29 MMOL/L (21-32) Anion Gap 7 mmol/L (5-15) Blood Urea Nitrogen 9 mg/dL (7-18) Creatinine 0.7 MG/DL (0.55-1.30) Estimat Glomerular Filtration Rate > 60 mL/min (>60) Glucose Level 87 MG/DL (74-106) Calcium Level 8.1 MG/DL (8.5-10.1) L Height (Feet): 5 Height (Inches): 6.00 Weight (Pounds): 175 Medications Current Medications Medications (Trade) Dose Ordered Sig/Uriel Route PRN Reason Start Time Stop Time Status Last Admin Dose Admin Acetaminophen (Tylenol) 650 mg Q4H PRN ORAL Mild Pain (Pain Scale 1-3) 02/03/20 12:30 03/02/20 16:29 Barium Sulfate (Varibar Honey) 250 ml NOW PRN RAD 02/03/20 16:45 02/04/20 16:43 Barium Sulfate (Varibar [place]) 240 ml NOW PRN RAD 02/03/20 16:45 02/04/20 16:43 Barium Sulfate (Varibar Pudding) 230 ml NOW PRN RAD 02/03/20 16:45 02/04/20 16:43 Barium Sulfate (Varibar Thin Liquid powder) 148 gm NOW PRN RAD 02/03/20 16:45 02/04/20 16:43 Ceftriaxone Sodium 1 gm/ Dextrose 55 ml @ 110 mls/hr Q24H IVPB 02/04/20 09:00 02/09/20 08:59 Diphenhydramine HCl (Benadryl) 25 mg Q6H PRN ORAL Itching 02/03/20 12:00 03/02/20 11:59 Docusate Sodium (Colace) 100 mg TWICE A DAY ORAL 02/03/20 18:00 03/03/20 10:14 Gabapentin (Neurontin) 300 mg THREE TIMES A DAY ORAL 02/03/20 13:00 03/02/20 17:59 02/03/20 12:24 Heparin Sodium (Porcine) (Heparin 5000 units/ml) 5,000 units EVERY 12 HOURS SUBQ 02/03/20 21:00 03/17/20 20:59 Nifedipine (Procardia XL) 30 mg DAILY ORAL 02/04/20 09:00 03/03/20 08:59 Ondansetron HCl (Zofran) 4 mg Q6H PRN IVP Nausea & Vomiting 02/03/20 12:00 03/02/20 11:59 Polyethylene Glycol (Miralax) 17 gm BEDTIME ORAL 02/03/20 21:00 03/03/20 20:59 Sodium Chloride 1,000 ml @ 75 mls/hr [id number] IV 02/03/20 11:30 03/03/20 10:59 02/03/20 12:26 Assessment/Plan Problem List: (1) Urinary tract infection ICD Codes: N39.0 - Urinary tract infection, site not specified SNOMED: 06701726 (2) Paraplegia Assessment & Plan: Pt presented on admission with Full thickness Pressure Injury Sacrum/R Buttocks. Base of wound is moist,lindsey with scattered areas of Slough, and Biofilm, Borders are irregular. Small amt serosanguineous exudate.(L )7cm x (W)7.5cm x(D)0.2cm. Surrounding non-blanchable erythema with additional shearing periwound. Unstageable Pressure Injury Maria D Cleft of Buttocks(L)2.5cm x (W)0.9cm. Base of Pressure Injury is 95% slough,5% lindsey with surrounding non-blanching erythema. Scattered epithelial and hyperpigmentation noted to L buttocks. R lower extremity internally rotated. Xerosis skin Bilat lower ext. An area of hyperpigmentation noted to R tibia. Both heels are non-blanchable but wihtou fluctuance. Pt complained both heels are tender to minimal touch. Tx.Plan: Cleanse wounds Buttocks with Saline. Apply Therahoney . Apply Moisture Barrier Paste Periwound. Cover with Optifoam drsg. Change every 3 days and prn. Moisturize Both lower ext with Phytoplex Lotion. Apply Cavilon Skin Barrier to both heels and Malleoli. Cover each site with Optifoam drsg. Change every 7 days and prn. Reposition at least every 2hours or as tolerated. Off-load heels with Pillow. ICD Codes: G82.20 - Paraplegia, unspecified SNOMED: 98869604 (3) Nephrolithiasis ICD Codes: N20.0 - Calculus of kidney SNOMED: 62963864 (4) UTI (urinary tract infection) ICD Codes: N39.0 - Urinary tract infection, site not specified SNOMED: 72831554 (5) Symptomatic cholelithiasis Assessment & Plan: No renal or ureteral calculi, hydronephrosis, or hydroureter. There is a 5 mm calculus dependently in the right side of the bladder lumen. Lack of IV contrast limits assessment of the renal parenchyma. No renal parenchymal mass or cyst demonstrated. Lack of IV contrast limits assessment of the other solid organs. The liver is unremarkable. The gallbladder contains multiple gallstones. No biliary ductal dilatation. The pancreas, spleen, adrenals are unremarkable. No retroperitoneal or mesenteric mass or adenopathy. The uterus demonstrates multiple masses, several calcified. No adnexal mass demonstrated. There is a scar in the right anterolateral proximal thigh. There is a small fat-containing umbilical hernia. The bones demonstrate degenerative spondylosis changes and mild lumbar scoliotic deformity. The included lung bases demonstrate some atelectasis and possibly scarring. There is bilateral lower lobe bronchial wall thickening demonstrated. There are severe degenerative changes of the left hip as well as a posttraumatic deformity of the left hip. Lack of enteric contrast limits assessment of the GI tract. There are colonic diverticula. No evidence of acute diverticulitis. The proximal colon is upper limits of normal in caliber, stool-filled. The appendix is normal. No small bowel distention. No free or loculated intraperitoneal gas or fluid is evident. Impression: 5 mm calculus in the right side of the bladder lumen. Acuity indeterminate. Given stated clinical history, possibly recently passed, although there is no hydronephrosis, hydroureter, or other abnormality to suggest such. Limited assessment of the GI tract, due to lack of enteric contrast administration Considerable proximal colonic stool. Correlate with any clinical history of constipation Colonic diverticulosis. No evidence of diverticulitis. Cholelithiasis Fibroid uterus. Evidence of multiple old degenerated calcified fibroids Degenerative changes of the spine and left hip and mild scoliotic deformity. Other findings as noted, including small fat-containing umbilical hernia,, basilar pulmonary atelectatic changes and possible scarring. pain resolved tolerating diet diet as tolerated no surgery planned ICD Codes: K80.20 - Calculus of gallbladder without cholecystitis without obstruction SNOMED: 307409017, [id number] Aaron Thomas Feb 03, 2020 16:49
--- NOTE | 2020-02-03 19:17 | NUR ---
HAND-OFF: Report given to DANNI Alvarez. Endorsed to the incoming nurse urine to be collected and pateint risk for fall;
[2020-02-03 20:00] VITALS: BP 113/83
--- NOTE | 2020-02-03 20:03 | NUR ---
NURSE NOTES: Received patient awake, verbal, forgetful, resting in bed, comfortable.
[2020-02-03] MEDS ORDERED: Miralax 17gm pkt ORAL SCH (21:00)
[2020-02-03] MEDS ORDERED: 1/2 NS 1000ml IV ONE (22:53)
[2020-02-04] VITALS: BP 122/80
[2020-02-04 00:25] LABS: APPEARANCE,URINE CLEAR; BILIRUBIN, URINE NEGATIVE (NEGATIVE); COLOR,URINE PALE YELLOW; GLUCOSE, URINE (UA) NEGATIVE (NEGATIVE); KETONES,URINE NEGATIVE (NEGATIVE); LEUKOCYTE ESTERASE ,URINE 2+ (NEGATIVE); NITRITE,URINE NEGATIVE (NEGATIVE); PH,URINE 7 (4.5-8.0); PROTEIN,URINE NEGATIVE (NEGATIVE); UROBILINOGEN,URINE NORMAL MG/DL (0.0-1.0)
--- NOTE | 2020-02-04 02:00 | NUR ---
NURSE NOTES: Patient in bed, awake,and alert x2. On room air with no signs of distress or SOB. IV intact and running IVF as ordered. Bed locked and in lowest position. Call light in reach. Will continue plan of care.
[2020-02-04 04:00] VITALS: BP 118/78
--- NOTE | 2020-02-04 06:21 | NUR ---
NURSE HAND-OFF: Important Events on Shift: N/A Patient Status: Stable Diet: Regular Pending Orders: N/A Pending Results/Labs: CBC, BMP Pending MD notification: N/A Latest Vital Signs: Temperature 97.8 , Pulse 78 , B/P 118 /78 , Respiratory Rate 20 , O2 SAT 96 , Room Air, O2 Flow Rate . Vital Sign Comment: Latest Mckinney Fall Score: 55 Fall Risk: High Risk Safety Measures: Call light Within Reach, Bed Alarm Zone 1, Side Rails Side Rails x3, Bed position Low and Locked. Fall Precautions: Yellow Socks Yellow Gown Door Sign Patient Fall Education Addendum: 02/04/20 at 0729 by TOSIN PUCKETT RN Report given to DANNI Sharif
[2020-02-04 07:31] LABS: BASOPHILS % (AUTO) 2.3 % (0.0-2.0); EOSINOPHILS % (AUTO) 6.8 % (0.0-3.0); HEMATOCRIT 40.6 % (37.0-47.0); HEMOGLOBIN 12.6 G/DL (12.0-16.0); LYMPHOCYTES % (AUTO) 30.8 % (20.0-45.0); MEAN CORPUSCULAR VOLUME 79 FL (80-99); MONOCYTES % (AUTO) 10.5 % (1.0-10.0); NEUTROPHILS % (AUTO) 49.7 % (45.0-75.0); PLATELET COUNT 411 K/UL (150-450); RED BLOOD COUNT 5.16 M/UL (4.20-5.40); RED CELL DISTRIBUTION WIDTH 16.2 % (11.6-14.8); WHITE BLOOD COUNT 5.6 K/UL (4.8-10.8)
--- NOTE | 2020-02-04 07:36 | NUR ---
Riprap Worker: Addendum: 02/04/20 at 0736 by Chante Zapata RN NURSE NOTES: Error
--- NOTE | 2020-02-04 07:37 | NUR ---
NURSE NOTES: Report received from Emilia RAZO. Patient seen on rounds, AxOx2, not in distress, no complaints of pain at this time. Pt eating breakfast with good appetite. PIV on left AC patent and infusing IVF as ordered. Pt is incontinent and needs assistance with ADL's. Wound dressings on sacrum/buttocks and heels intact. As per nurse UA sent last night and pending culture results. Bed low and locked, siderails up x2, call light placed within reach and instructed to call nurse for assistance. Will continue to monitor.
[2020-02-04 07:45] LABS: ANION GAP 8 mmol/L (5-15); BLOOD UREA NITROGEN 8 mg/dL (7-18); CARBON DIOXIDE 27 MMOL/L (21-32); CHLORIDE 111 MMOL/L (98-107); CREATININE 0.6 MG/DL (0.55-1.30); POTASSIUM 4.1 MMOL/L (3.5-5.1); SODIUM 146 MMOL/L (136-145)
--- NOTE | 2020-02-04 07:51 | Urology Progress Note ---
Assessment/Plan Assessment/Plan: 1. Pyuria, probable UTI. 2. Flank pain history. 3. Hematuria. 4. Proteinuria. 5. Lower urinary tract symptoms. 6. Rule out neurogenic bladder. 7. Bladder calculus. monitor clinically abx as ordered renal fxn stable cysto later Subjective Allergies: Coded Allergies: LISINOPRIL (Verified Allergy, Unknown, 02/01/20) OXYCODONE (Verified Allergy, Unknown, 02/01/20) Subjective all noted, feels fair vague pain Objective Last 24 Hour Vital Signs Date Time Temp Pulse Resp B/P (MAP) Pulse Ox O2 Delivery O2 Flow Rate FiO2 02/04/20 04:00 97.8 78 20 118/78 (91) 96 02/04/20 00:00 98.4 78 20 122/80 (94) 96 02/03/20 20:08 Room Air 02/03/20 20:00 98.2 89 20 113/83 (93) 95 02/03/20 16:00 97.9 88 18 118/69 (85) 97 02/03/20 12:00 97.5 95 18 146/84 (104) 95 02/03/20 09:47 86 129/65 02/03/20 09:00 Room Air 02/03/20 08:00 102 Intake and Output 02/03/20 02/04/20 19:00 07:00 Intake Total 930 ml 525 ml Output Total 600 ml Balance 330 ml 525 ml Intake Oral 480 ml IV Total 450 ml 525 ml Output Urine Total 600 ml # Voids 2 # Bowel Movements 1 1 Microbiology Date/Time Source Procedure Growth Status 02/01/20 11:20 Urine,Clean Catch Urine Culture - Final Mixed Urogenital Contaminants Complete Current Medications Medications (Trade) Dose Ordered Sig/Uriel Route PRN Reason Start Time Stop Time Status Last Admin Dose Admin Acetaminophen (Tylenol) 650 mg Q4H PRN ORAL Mild Pain (Pain Scale 1-3) 02/03/20 12:30 03/02/20 16:29 Barium Sulfate (Varibar Honey) 250 ml NOW PRN MC RAD 02/03/20 16:45 02/04/20 16:43 Barium Sulfate (Varibar Donaldson) 240 ml NOW PRN MC RAD 02/03/20 16:45 02/04/20 16:43 Barium Sulfate (Varibar Pudding) 230 ml NOW PRN MC RAD 02/03/20 16:45 02/04/20 16:43 Barium Sulfate (Varibar Thin Liquid powder) 148 gm NOW PRN RAD 02/03/20 16:45 02/04/20 16:43 Ceftriaxone Sodium 1 gm/ Dextrose 55 ml @ 110 mls/hr Q24H IVPB 02/04/20 09:00 02/09/20 08:59 Diphenhydramine HCl (Benadryl) 25 mg Q6H PRN ORAL Itching 02/03/20 12:00 03/02/20 11:59 02/04/20 03:38 Docusate Sodium (Colace) 100 mg TWICE A DAY ORAL 02/03/20 18:00 03/03/20 10:14 02/03/20 17:03 Gabapentin (Neurontin) 300 mg THREE TIMES A DAY ORAL 02/03/20 13:00 03/02/20 17:59 02/03/20 17:04 Heparin Sodium (Porcine) (Heparin 5000 units/ml) 5,000 units EVERY 12 HOURS SUBQ 02/03/20 21:00 03/17/20 20:59 02/03/20 20:52 Nifedipine (Procardia XL) 30 mg DAILY ORAL 02/04/20 09:00 03/03/20 08:59 Ondansetron HCl (Zofran) 4 mg Q6H PRN IVP Nausea & Vomiting 02/03/20 12:00 03/02/20 11:59 Polyethylene Glycol (Miralax) 17 gm BEDTIME ORAL 02/03/20 21:00 03/03/20 20:59 02/03/20 20:52 Sodium Chloride 1,000 ml @ 75 mls/hr [id number] IV 02/03/20 11:30 03/03/20 10:59 02/04/20 00:38 Laboratory Tests 02/03/20 09:40: White Blood Count 6.7, Red Blood Count 5.59H, Hemoglobin 13.6, Hematocrit 44.4, Mean Corpuscular Volume 79L, Mean Corpuscular Hemoglobin 24.3L, Mean Corpuscular Hemoglobin Concent 30.6L, Red Cell Distribution Width 16.6H, Platelet Count 448#, Mean Platelet Volume 6.5, Neutrophils (%) (Auto) 57.5, Lymphocytes (%) (Auto) 27.0, Monocytes (%) (Auto) 9.0, Eosinophils (%) (Auto) 4.9H, Basophils (%) (Auto) 1.5, Sodium Level 147H, Potassium Level 3.8, Chloride Level 111H, Carbon Dioxide Level 29, Anion Gap 7, Blood Urea Nitrogen 9 , Creatinine 0.7, Estimat Glomerular Filtration Rate > 60, Glucose Level 87, Calcium Level 8.1L 02/04/20 00:05: Urine Color Pale yellow, Urine Appearance Clear, Urine pH 7, Urine Specific [place] 1.010, Urine Protein Negative, Urine Glucose (UA) Negative, Urine Ketones Negative, Urine Blood Negative, Urine Nitrite Negative, Urine Bilirubin Negative, Urine Urobilinogen Normal, Urine Leukocyte Esterase 2+H, Urine RBC 0-2 , Urine WBC 2-4, Urine Squamous Epithelial Cells Few, Urine Bacteria Few, Urine Hyaline Casts 0-2H, Urine Yeast ManyH 02/04/20 05:50: White Blood Count 5.6, Red Blood Count 5.16, Hemoglobin 12.6, Hematocrit 40.6, Mean Corpuscular Volume 79L, Mean Corpuscular Hemoglobin 24.4L, Mean Corpuscular Hemoglobin Concent 31.0L, Red Cell Distribution Width 16.2H, Platelet Count 411, Mean Platelet Volume 5.4L, Neutrophils (%) (Auto) 49.7, Lymphocytes (%) (Auto) 30.8, Monocytes (%) (Auto) 10.5H, Eosinophils (%) (Auto) 6.8H, Basophils (%) (Auto) 2.3H, Sodium Level 146H, Potassium Level 4.1, Chloride Level 111H, Carbon Dioxide Level 27, Anion Gap 8, Blood Urea Nitrogen 8 , Creatinine 0.6, Estimat Glomerular Filtration Rate > 60, Glucose Level 90, Calcium Level 8.0L Height (Feet): 5 Height (Inches): 6.00 Weight (Pounds): 175 Objective exam stable Masr Arcos MD Feb 04, 2020 07:51
[2020-02-04 08:00] VITALS: BP 133/75
[2020-02-04] MEDS: Docusate 100mg cap ORAL SCH (08:45)
[2020-02-04] MEDS: Heparin 5000 units/ml inj SUBQ SCH (08:48)
[2020-02-04] MEDS ORDERED: cefTRIAXone 1 GM in D5W 55 ML IVPB SCH (09:00)
[2020-02-04] MEDS ORDERED: NIFEDIPINE ER90 M3 ORAL (10:13)
--- NOTE | 2020-02-04 10:26 | Pulmonology Progress Note ---
Simona Rios ROUND CORNER CUTTER OPERATOR 02/04/20 1026: Subjective ROS Limited/Unobtainable: Yes Constitutional: Denies: fever Gastrointestinal/Abdominal: Denies: nausea, vomiting, diarrhea Psychiatric: Denies: depression Skin: Denies: rash Musculoskeletal: Denies: pain Allergies: Coded Allergies: LISINOPRIL (Verified Allergy, Unknown, 02/01/20) OXYCODONE (Verified Allergy, Unknown, 02/01/20) Subjective RLQ pain resolved had good l BM denies CP, SOB no fevers/chills no leukocytosis Objective Last 24 Hour Vital Signs Date Time Temp Pulse Resp B/P (MAP) Pulse Ox O2 Delivery O2 Flow Rate FiO2 02/04/20 09:00 Room Air 02/04/20 08:46 94 133/75 02/04/20 08:00 97.7 94 19 133/75 (94) 96 02/04/20 04:00 97.8 78 20 118/78 (91) 96 02/04/20 00:00 98.4 78 20 122/80 (94) 96 02/03/20 20:08 Room Air 02/03/20 20:00 98.2 89 20 113/83 (93) 95 02/03/20 16:00 97.9 88 18 118/69 (85) 97 02/03/20 12:00 97.5 95 18 146/84 (104) 95 Intake and Output 02/03/20 02/04/20 19:00 07:00 Intake Total 930 ml 525 ml Output Total 600 ml Balance 330 ml 525 ml Intake Oral 480 ml IV Total 450 ml 525 ml Output Urine Total 600 ml # Voids 2 # Bowel Movements 1 1 General Appearance: other - awake, responsive elderly AA female in NAD HEENT: normocephalic, atraumatic, anicteric, mucous membranes moist Respiratory: lungs clear, no respiratory distress, no accessory muscle use Cardiovascular: normal rate, regular rhythm Abdomen: normal bowel sounds, non distended, other - RLQ tenderenss, no rebound , no guarding, Extremities: no edema Skin: other - patches of vitiligo LE, DTI present on admission Neurologic: abnormal gait, alert, responsive, other - RSW/chronic, slurred speech Musculoskeletal: atrophy - BLE Microbiology Date/Time Source Procedure Growth Status 02/01/20 11:20 Urine,Clean Catch Urine Culture - Final Mixed Urogenital Contaminants Complete Laboratory Tests 02/04/20 00:05: Urine Color Pale yellow, Urine Appearance Clear, Urine pH 7, Urine Specific [place] 1.010, Urine Protein Negative, Urine Glucose (UA) Negative, Urine Ketones Negative, Urine Blood Negative, Urine Nitrite Negative, Urine Bilirubin Negative, Urine Urobilinogen Normal, Urine Leukocyte Esterase 2+H, Urine RBC 0-2 , Urine WBC 2-4, Urine Squamous Epithelial Cells Few, Urine Bacteria Few, Urine Hyaline Casts 0-2H, Urine Yeast ManyH 02/04/20 05:50: White Blood Count 5.6, Red Blood Count 5.16, Hemoglobin 12.6, Hematocrit 40.6, Mean Corpuscular Volume 79L, Mean Corpuscular Hemoglobin 24.4L, Mean Corpuscular Hemoglobin Concent 31.0L, Red Cell Distribution Width 16.2H, Platelet Count 411, Mean Platelet Volume 5.4L, Neutrophils (%) (Auto) 49.7, Lymphocytes (%) (Auto) 30.8, Monocytes (%) (Auto) 10.5H, Eosinophils (%) (Auto) 6.8H, Basophils (%) (Auto) 2.3H, Sodium Level 146H, Potassium Level 4.1, Chloride Level 111H, Carbon Dioxide Level 27, Anion Gap 8, Blood Urea Nitrogen 8 , Creatinine 0.6, Estimat Glomerular Filtration Rate > 60, Glucose Level 90, Calcium Level 8.0L Current Medications Medications (Trade) Dose Ordered Sig/Uriel Route PRN Reason Start Time Stop Time Status Last Admin Dose Admin Acetaminophen (Tylenol) 650 mg Q4H PRN ORAL Mild Pain (Pain Scale 1-3) 02/03/20 12:30 03/02/20 16:29 Barium Sulfate (Varibar Honey) 250 ml NOW PRN MC RAD 02/03/20 16:45 02/04/20 16:43 Barium Sulfate (Varibar Comfrey) 240 ml NOW PRN MC RAD 02/03/20 16:45 02/04/20 16:43 Barium Sulfate (Varibar Pudding) 230 ml NOW PRN MC RAD 02/03/20 16:45 02/04/20 16:43 Barium Sulfate (Varibar Thin Liquid powder) 148 gm NOW PRN MC RAD 02/03/20 16:45 02/04/20 16:43 Ceftriaxone Sodium 1 gm/ Dextrose 55 ml @ 110 mls/hr Q24H IVPB 02/04/20 09:00 02/09/20 08:59 02/04/20 08:45 Diphenhydramine HCl (Benadryl) 25 mg Q6H PRN ORAL Itching 02/03/20 12:00 03/02/20 11:59 02/04/20 03:38 Docusate Sodium (Colace) 100 mg TWICE A DAY ORAL 02/03/20 18:00 03/03/20 10:14 02/04/20 08:45 Gabapentin (Neurontin) 300 mg THREE TIMES A DAY ORAL 02/03/20 13:00 03/02/20 17:59 02/04/20 08:44 Heparin Sodium (Porcine) (Heparin 5000 units/ml) 5,000 units EVERY 12 HOURS SUBQ 02/03/20 21:00 03/17/20 20:59 02/04/20 08:48 Nifedipine (Procardia XL) 30 mg DAILY ORAL 02/04/20 09:00 03/03/20 08:59 02/04/20 08:46 Ondansetron HCl (Zofran) 4 mg Q6H PRN IVP Nausea & Vomiting 02/03/20 12:00 03/02/20 11:59 Polyethylene Glycol (Miralax) 17 gm BEDTIME ORAL 02/03/20 21:00 03/03/20 20:59 02/03/20 20:52 Sodium Chloride 1,000 ml @ 75 mls/hr [id number] IV 02/03/20 11:30 03/03/20 10:59 02/04/20 00:38 Assessment/Plan Assessment/Plan ASSESSMENT/PROBLEM LIST: * R flank pain 2/2 R sided non-obstructive nephrolithiasis * UTI, possible pyelo * 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 * HTN * constipation * diverticulosis w/out current evidence of diverticulitis with prior hx of exp lap due to SBO * DTI present on admission PLAN: * [facility] floor * continue IVF hydration * Abx: CTx, UCX + mixed nita , fup with further ID recs * Pain control/supportive care * eval appreciated, no hydro at this time; stone in the bladder may have been a small stone that she just recently passed, need cystoscopy later, can be done as OP * Monitor volumes and renal function * BP management iwth CCB, optimize treatment as needed * Aspiration precautions, FISH ICER eval * DVT Px: Hep SQ * Bowel regimen, had BM, need a termite helper * FC * wound care as per surgeon recs, continue at home * discussed with ID, can be dc on Ceftin 500 mg po bid x 7 days, script provided along with script for bowel regimen * dc today with [facility] for wound care case discussed and evaluated by supervising physician Judd Saldana MD 02/04/20 1058: Subjective Allergies: Coded Allergies: LISINOPRIL (Verified Allergy, Unknown, 02/01/20) OXYCODONE (Verified Allergy, Unknown, 02/01/20) Assessment/Plan Assessment/Plan Patient seen and examined with ROUND CORNER CUTTER OPERATOR and I agree with the above formulated assessment and plan. discharge home today on PO abx. Simona Rios NP Feb 04, 2020 10:26 Judd Saldana MD Feb 04, 2020 10:58
[2020-02-04] MEDS ORDERED: MIRALAX119 GM ORAL (10:42)
[2020-02-04] MEDS ORDERED: PROCARDIA XL30 MG ORAL (10:42)
[2020-02-04] MEDS ORDERED: COLACE100 MG ORAL (10:42)
[2020-02-04] MEDS ORDERED: CEFUROXIME500 MG PO (10:42)
--- NOTE | 2020-02-04 11:37 | NUR ---
NURSE NOTES: Spoke with Jayla Terrazas, patient's granddtr and commercial designer to inform her of pt's discharge. Ms. Terrazas states there is no one available to last picker patient to transport her home as pt is unable to walk; requests assistance for possible ambulance transport and will contact possible caregiver to meet them at her home once transportation can be arranged. Left voice message with hospice case manager Cara to update and request assistance with transportation.
[2020-02-04 12:00] VITALS: BP 119/97
--- NOTE | 2020-02-04 14:08 | NUR ---
DISCHARGE PLANNING PATIENT HAS BEEN REFERRED TO [facility] F: [phone]
--- NOTE | 2020-02-04 15:31 | NUR ---
NURSE NOTES: Patient discharged home, AXOx2, not in distress or pain, vitals stable prior to discharge. Pressure injury on sacral area cleaned and dressed, documented and pictures taken. All discharge instructions and medications discussed with patient and granddaughter Jayla. Also sent physical prescription with discharge paperwork. Home health arranged by dependency case manager. PIV and ID removed. Belongings accounted for and intact. Pt left via ambulance gurney transport at 3:31pm.
--- NOTE | 2020-02-04 16:55 | Surgery Progress Note ---
Surgery Progress Note Subjective Additional Comments Patient seen and examined bedside. No acute events. Doing well. Improved. No nausea vomiting fever chills. No complaints. Tolerating diet well Objective Last 24 Hour Vital Signs Date Time Temp Pulse Resp B/P (MAP) Pulse Ox O2 Delivery O2 Flow Rate FiO2 02/04/20 12:00 98.7 89 19 119/97 (104) 95 02/04/20 09:00 Room Air 02/04/20 08:46 94 133/75 02/04/20 08:00 97.7 94 19 133/75 (94) 96 02/04/20 04:00 97.8 78 20 118/78 (91) 96 02/04/20 00:00 98.4 78 20 122/80 (94) 96 02/03/20 20:08 Room Air 02/03/20 20:00 98.2 89 20 113/83 (93) 95 I&O Intake and Output 02/03/20 02/04/20 19:00 07:00 Intake Total 930 ml 525 ml Output Total 600 ml Balance 330 ml 525 ml Intake Oral 480 ml IV Total 450 ml 525 ml Output Urine Total 600 ml # Voids 2 # Bowel Movements 1 1 Dressing: other Wound: other Cardiovascular: RSR Respiratory: decreased breath sounds Abdomen: soft, non-tender, present bowel sounds Extremities: no tenderness, no cyanosis Laboratory Tests Test 02/04/20 00:05 02/04/20 05:50 Urine Color Pale yellow Urine Appearance Clear Urine pH 7 (4.5-8.0) Urine Specific [place] 1.010 (1.005-1.035) Urine Protein Negative (NEGATIVE) Urine Glucose (UA) Negative (NEGATIVE) Urine Ketones Negative (NEGATIVE) Urine Blood Negative (NEGATIVE) Urine Nitrite Negative (NEGATIVE) Urine Bilirubin Negative (NEGATIVE) Urine Urobilinogen Normal MG/DL (0.0-1.0) Urine Leukocyte Esterase 2+ (NEGATIVE) H Urine RBC 0-2 /HPF (0 - 2) Urine WBC 2-4 /HPF (0 - 2) Urine Squamous Epithelial Cells Few /LPF (NONE/OCC) Urine Bacteria Few /HPF (NONE) Urine Hyaline Casts 0-2 /LPF (NONE) H Urine Yeast Many /HPF (NONE) H White Blood Count 5.6 K/UL (4.8-10.8) Red Blood Count 5.16 M/UL (4.20-5.40) Hemoglobin 12.6 G/DL (12.0-16.0) Hematocrit 40.6 % (37.0-47.0) Mean Corpuscular Volume 79 FL (80-99) L Mean Corpuscular Hemoglobin 24.4 PG (27.0-31.0) L Mean Corpuscular Hemoglobin Concent 31.0 G/DL (32.0-36.0) L Red Cell Distribution Width 16.2 % (11.6-14.8) H Platelet Count 411 K/UL (150-450) Mean Platelet Volume 5.4 FL (6.5-10.1) L Neutrophils (%) (Auto) 49.7 % (45.0-75.0) Lymphocytes (%) (Auto) 30.8 % (20.0-45.0) Monocytes (%) (Auto) 10.5 % (1.0-10.0) H Eosinophils (%) (Auto) 6.8 % (0.0-3.0) H Basophils (%) (Auto) 2.3 % (0.0-2.0) H Sodium Level 146 MMOL/L (136-145) H Potassium Level 4.1 MMOL/L (3.5-5.1) Chloride Level 111 MMOL/L (98-107) H Carbon Dioxide Level 27 MMOL/L (21-32) Anion Gap 8 mmol/L (5-15) Blood Urea Nitrogen 8 mg/dL (7-18) Creatinine 0.6 MG/DL (0.55-1.30) Estimat Glomerular Filtration Rate > 60 mL/min (>60) Glucose Level 90 MG/DL (74-106) Calcium Level 8.0 MG/DL (8.5-10.1) L Plan Problems: (1) Urinary tract infection (2) Paraplegia Assessment & Plan: Pt presented on admission with Full thickness Pressure Injury Sacrum/R Buttocks. Base of wound is moist,lindsey with scattered areas of Slough, and Biofilm, Borders are irregular. Small amt serosanguineous exudate.(L )7cm x (W)7.5cm x(D)0.2cm. Surrounding non-blanchable erythema with additional shearing periwound. Unstageable Pressure Injury Cleft of Buttocks(L)2.5cm x (W)0.9cm. Base of Pressure Injury is 95% slough,5% lindsey with surrounding non-blanching erythema. Scattered epithelial and hyperpigmentation noted to L buttocks. R lower extremity internally rotated. Xerosis skin Bilat lower ext. An area of hyperpigmentation noted to R tibia. Both heels are non-blanchable but wihtou fluctuance. Pt complained both heels are tender to minimal touch. Tx.Plan: Cleanse wounds Buttocks with Saline. Apply Therahoney . Apply Moisture Barrier Paste Periwound. Cover with Optifoam drsg. Change every 3 days and prn. Moisturize Both lower ext with Phytoplex Lotion. Apply Cavilon Skin Barrier to both heels and Malleoli. Cover each site with Optifoam drsg. Change every 7 days and prn. Reposition at least every 2hours or as tolerated. Off-load heels with Pillow. (3) Nephrolithiasis (4) UTI (urinary tract infection) (5) Symptomatic cholelithiasis Additional Comments late entry doing well okay to d/c from surgical standpoint Aaron Thomas Feb 04, 2020 16:55
--- NOTE | 2020-02-06 12:01 | Discharge Summary ---
Discharge Summary Discharge Summary _ DATE OF ADMISSION: 02/01/2020 DATE OF DISCHARGE: 02/04/2020 DISCHARGED BY: Dr. Saldana REASON FOR ADMISSION: 84 years old female with past medical history of hypertension, CVA, exploratory laparotomy presented with a right flank pain for 1 day. She denied fever or chills. No chest pain or shortness of breath. No nausea , vomiting, diarrhea. Patient tolerated oral intake. Upon evaluation in emergency room vital signs were stable. Urinalysis was consistent with urinary tract infection . CT urogram revealed nonobstructing right-sided kidney stone. In the emergency department patient received Tylenol, Zofran, Benadryl, IV fluids . Patient felt better and admitted to medical surgical floor for further management. CONSULTANTS: urologist Dr. Arcos ID specialist Dr. Alcazar general surgeon Dr. Longo HOSPITAL COURSE: Patient admitted to medical surgical floor. Patient started on the IV hydration and empiric antibiotic as per ID specialist recommendation. Urine culture revealed mixed nita. Per ID specialist patient had complicated UTI , possible pyelonephritis . Patient was on IV antibiotic while in the hospital and discharged on oral antibiotic for additional 7 days to complete the course as per ID specialist recommendation. No fever no leukocytosis. Pain management was addressed as needed. Urologist recommended monitor patient clinically. Renal function remained stable. No evidence of hydronephrosis on imaging . Stone in the bladder may have been a small stone that she patient just recently passed. He recommended cystoscopy , which can be done later as outpatient. Volumes were closely monitored. Renal parameters remained stable. Blood pressure was managed with calcium channel thompson. Aspiration precaution maintained. DVT prophylaxis provided. Bowel regimen instituted. Patient had bowel movement. Patient was educated on long-term bowel regimen. Wound care for deep tissue injury present on admission provided as per surgeon recommendation. Patient clinically stabilized and was stable for discharge. FINAL DIAGNOSES: Complicated urinary tract infection Possible pyelonephritis Right-sided nonobstructive nephrolithiasis Hypertension History of CVA with right-sided weakness and dysarthria Diverticulosis without evidence of diverticulitis (with prior history of exploratory laparotomy due to small bowel obstruction) Constipation- resolved Deep tissue injury- present on admission DISCHARGE MEDICATIONS: See Medication Reconciliation list. DISCHARGE INSTRUCTIONS: Patient was discharged home. Follow-up with the primary care provider in 1 week. Recommended outpatient cystoscopy. Simona Rios NP Feb 06, 2020 12:01
--- NOTE | 2020-02-06 22:06 | Cardiology Report ---
APPROVED REPORT EKG Measurement Heart [id number] <Conclusion> Sinus tachycardia Possible Left atrial enlargement Nonspecific T wave abnormality Abnormal ECG
== END 2020-02-04 15:30 | disposition home or self-care (01) | DRG 689 ==
LOC: EDBD 10:15 → EMR 11:12 → EDBEDREQ 11:14 → 2E 11:46 → EDBEDREQ 15:23 → 4E 02-03 11:30
DX: N39.0 Urinary tract infection, site not specified (principal); L89.43 Pressure ulcer of contiguous site of back, buttock and hip, stage 3; G82.20 Paraplegia, unspecified; I69.351 Hemiplegia and hemiparesis following cerebral infarction affecting right dominant side; N12 Tubulo-interstitial nephritis, not specified as acute or chronic; N20.0 Calculus of kidney; N21.0 Calculus in bladder; K80.20 Calculus of gallbladder without cholecystitis without obstruction; Z88.6 Allergy status to analgesic agent; Z88.0 Allergy status to penicillin; Z88.8 Allergy status to other drugs, medicaments and biological substances; K57.90 Diverticulosis of intestine, part unspecified, without perforation or abscess without bleeding; I69.322 Dysarthria following cerebral infarction; K59.00 Constipation, unspecified
CPT/HCPCS: 36415; 74176; 80048; 80053; 81003; 83690; 84484; 85025; 85610; 85730; 87086; 93005; 96365; 96375; 99285; J2405; J7030

== ENCOUNTER 2020-02-12 12:54 | Inpatient (IN) | payer MEDICARE ==
[~2020-02-12] VITALS: Ht 165.1 cm; Wt 85.7 kg
[~2020-02-12 12:54] MED LIST: ADALAT10 MG ORAL; CEFUROXIME500 MG PO; COLACE100 MG ORAL; GABAPENTIN100 MG ORAL; MIRALAX119 GM ORAL; NIFEDIPINE ER90 M3 ORAL; PROCARDIA XL30 MG ORAL
--- NOTE | 2020-02-12 13:10 | Emergency Room Report ---
History of Present Illness General Chief Complaint: General Complaint Source: Patient Present Illness HPI 84-year-old female presents for increased bilateral hip pain.Patient was brought in by EMS. Patiently patient been having increased difficulty with activities of daily living.Patient had not been vomiting or having any fever. Had recent hospitalization for complex urinary tract infection Allergies: Coded Allergies: ACETAMINOPHEN (Unverified Allergy, Unknown, 02/12/20) CODEINE (Unverified Allergy, Unknown, 02/12/20) LISINOPRIL (Verified Allergy, Unknown, 02/01/20) OXYCODONE (Verified Allergy, Unknown, 02/01/20) COVID-19 Screening Contact w/high risk pt: No Experienced COVID-19 symptoms?: No COVID-19 Testing performed DIRECTOR OF CONTENT MARKETING: No Patient History Reviewed Nursing Documentation: PMH: Agreed; PSxH: Agreed Nursing Documentation-PMH Past Medical History: No History, Except For Hx Hypertension: Yes Hx Cancer: No Hx Gastrointestinal Problems: Yes - Chloelithiasis Hx Neurological Problems: Yes - R sided paraplegia Hx Cerebrovascular Accident: Yes - 2019 Review of Systems All Other Systems: negative except mentioned in HPI Physical Exam Vital Signs Date Time Temp Pulse Resp B/P (MAP) Pulse Ox O2 Delivery O2 Flow Rate FiO2 02/12/20 12:46 99.0 89 14 190/90 (123) 96 Room Air Sp02 EP Interpretation: reviewed, normal General Appearance: normal inspection, well appearing, no apparent distress, alert, GCS 15 Head: atraumatic ENT: normal ENT inspection, hearing grossly normal, normal voice Neck: normal inspection, full range of motion, supple, no bony tend Respiratory: normal inspection, lungs clear, normal breath sounds, no respiratory distress, no retraction, no wheezing Cardiovascular #1: regular rate, rhythm, no edema Gastrointestinal: normal inspection, normal bowel sounds, non tender, soft, no guarding, no hernia Genitourinary: no CVA tenderness Musculoskeletal: normal inspection, back normal, normal range of motion Neurologic: alert, motor strength/tone normal, eclectic doctor III-XII nml as tested, oriented x3, responsive, speech normal, normal inspection Psychiatric: normal inspection, judgement/insight normal, mood/affect normal Skin: no rash Medical Decision Making Diagnostic Impression: Primary Impression: FTT (failure to thrive) in adult Additional Impressions: CVA (cerebral vascular accident) UTI (urinary tract infection) ER Course Patient presented for persistent generalized weakness. Had recent recent hospitalization for urinary tract infection which was noted to be multidrug- resistant. Patient had noted to have some urinary infection. Patient's laboratory testing was essentially unremarkable other than some persistent urinary tract infection. Patient started on IV fluids. Dr. Judd Saldana was contacted for inpatient management due to persistent urinary tract infection and patient's inability to care for self. Dr. Saldana agreed with admission. Last Vital Signs Date Time Temp Pulse Resp B/P (MAP) Pulse Ox O2 Delivery O2 Flow Rate FiO2 02/12/20 12:46 99.0 89 14 190/90 (123) 96 Room Air Status: unchanged Disposition: ADMITTED INPATIENT Condition: Stable Sanjeev Millard MD Feb 12, 2020 13:10
[2020-02-12 13:15] VITALS: BP 171/81
[2020-02-12 14:15] LABS: BASOPHILS % (AUTO) 3.4 % (0.0-2.0); EOSINOPHILS % (AUTO) 4.9 % (0.0-3.0); HEMATOCRIT 45.4 % (37.0-47.0); HEMOGLOBIN 14.1 G/DL (12.0-16.0); LYMPHOCYTES % (AUTO) 26.9 % (20.0-45.0); MEAN CORPUSCULAR VOLUME 79 FL (80-99); MONOCYTES % (AUTO) 5.8 % (1.0-10.0); NEUTROPHILS % (AUTO) 59.1 % (45.0-75.0); PLATELET COUNT 563 K/UL (150-450); RED BLOOD COUNT 5.77 M/UL (4.20-5.40); RED CELL DISTRIBUTION WIDTH 16.3 % (11.6-14.8); WHITE BLOOD COUNT 5.7 K/UL (4.8-10.8)
[2020-02-12 14:29] LABS: ANION GAP 7 mmol/L (5-15); BLOOD UREA NITROGEN 10 mg/dL (7-18); CALCIUM 9.1 MG/DL (8.5-10.1); CARBON DIOXIDE 31 MMOL/L (21-32); CHLORIDE 105 MMOL/L (98-107); CREATININE 0.6 MG/DL (0.55-1.30); POTASSIUM 3.9 MMOL/L (3.5-5.1); SODIUM 143 MMOL/L (136-145)
[2020-02-12 14:33] LABS: ALANINE AMINOTRANSFERASE 14 U/L (12-78); ALBUMIN 3.2 G/DL (3.4-5.0); ALBUMIN/GLOBULIN RATIO 0.8 (1.0-2.7); ALKALINE PHOSPHATASE 139 U/L (46-116); ASPARTATE AMINO TRANSFERASE 15 U/L (15-37); BILIRUBIN,TOTAL 0.3 MG/DL (0.2-1.0)
[2020-02-12 14:45] VITALS: BP 168/96
[2020-02-12 15:42] LABS: APPEARANCE,URINE SLIGHTLY CLOUDY; BILIRUBIN, URINE NEGATIVE (NEGATIVE); COLOR,URINE PALE YELLOW; GLUCOSE, URINE (UA) NEGATIVE (NEGATIVE); KETONES,URINE NEGATIVE (NEGATIVE); LEUKOCYTE ESTERASE ,URINE 3+ (NEGATIVE); NITRITE,URINE NEGATIVE (NEGATIVE); PH,URINE 8 (4.5-8.0); PROTEIN,URINE NEGATIVE (NEGATIVE); UROBILINOGEN,URINE NORMAL MG/DL (0.0-1.0)
[2020-02-12] MEDS ORDERED: cloNIDine 0.2mg Tab ORAL ONE (16:30)
[2020-02-12 16:38] VITALS: BP_SYST 129; BP_SYST 158; BP_DIAS 100; BP_DIAS 68
[2020-02-12] MEDS ORDERED: cefTRIAXone 1 GM in NS 55 ML IVPB ONE (17:00)
--- NOTE | 2020-02-12 17:17 | History & Physical ---
History and Physical History & Physicial History & Physicial IM H&P CC: FTT HPI: 84 F h/o CVA and nephrolithiasis recently a/w a non-obstructing stone and UTI back with progressive weakness. No FC, no CP, no SOB, no NVDC, no abd pain or urinary complaints. PMH: R BG CVA H/O SBO and GS panc PSH: Lapartomy, endoscopies ALL: Acetaminophen, Lisinopril, Oxycodone MEDS: Nifedipine 90 mg PO qDaily, Gabapentin 300 TID SHX: Prior NHR, lives at home, supportive family, , no RADHA use FHX: N/C ROS: Neg other than HPI PE: Last 24 Hour Vital Signs Date Time Temp Pulse Resp B/P (MAP) Pulse Ox O2 Delivery O2 Flow Rate FiO2 02/12/20 16:38 97.8 80 14 158/68 96 Room Air 02/12/20 16:26 190/120 02/12/20 12:55 89 14 Room Air 02/12/20 12:46 99.0 89 14 190/90 (123) 96 Room Air Elderly female with dysarthria, AAOx3, slurred speech, baseline R sided weakness NC/AT, OPC c MMM Supple s LAD or JVD CTA RRR S/NT/ND c NABS No C/C/E Laboratory Tests 02/12/20 13:45: White Blood Count 5.7, Red Blood Count 5.77H, Hemoglobin 14.1, Hematocrit 45.4, Mean Corpuscular Volume 79L, Mean Corpuscular Hemoglobin 24.4L, Mean Corpuscular Hemoglobin Concent 31.0L, Red Cell Distribution Width 16.3H, Platelet Count 563H , Mean Platelet Volume 5.5L, Neutrophils (%) (Auto) 59.1, Lymphocytes (%) (Auto) 26.9, Monocytes (%) (Auto) 5.8, Eosinophils (%) (Auto) 4.9H, Basophils (%) (Auto) 3.4H, Sodium Level 143, Potassium Level 3.9, Chloride Level 105, Carbon Dioxide Level 31, Anion Gap 7, Blood Urea Nitrogen 10, Creatinine 0.6, Estimat Glomerular Filtration Rate > 60, Glucose Level 95, Calcium Level 9.1, Total Bilirubin 0.3, Aspartate Amino Transf (AST/SGOT) 15, Alanine Aminotransferase (ALT/SGPT) 14, Alkaline Phosphatase 139H, Total Protein 7.4, Albumin 3.2L, Globulin 4.2, Albumin/Globulin Ratio 0.8L 02/12/20 15:30: Urine Color Pale yellow, Urine Appearance Slightly cloudy, Urine pH 8, Urine Specific [place] 1.010, Urine Protein Negative, Urine Glucose (UA) Negative, Urine Ketones Negative, Urine Blood 2+H, Urine Nitrite Negative, Urine Bilirubin Negative, Urine Urobilinogen Normal, Urine Leukocyte Esterase 3+H, Urine RBC 2- 4H, Urine WBC 60-80H, Urine Squamous Epithelial Cells ModerateH, Urine Bacteria ManyH, Urine Yeast ModerateH ASSESSMENT/PROBLEM LIST: * FTT * Recent UTI now with persistent dirty UA but afebrile, no wct and completed a course of Abx recently * Nephrolithiasis * 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
--- NOTE | 2020-02-12 18:08 | Cardiac Electrophysiology PN ---
Subjective Subjective [id number] Objective Last 24 Hour Vital Signs Date Time Temp Pulse Resp B/P (MAP) Pulse Ox O2 Delivery O2 Flow Rate FiO2 02/12/20 17:14 97.6 74 16 160/86 99 Room Air 02/12/20 16:38 97.8 80 14 158/68 96 Room Air 02/12/20 16:26 190/120 02/12/20 14:45 99.0 85 14 168/96 96 Room Air 02/12/20 13:15 98.9 81 14 171/81 96 Room Air 02/12/20 12:55 89 14 Room Air 02/12/20 12:46 99.0 89 14 190/90 (123) 96 Room Air Laboratory Tests Test 02/12/20 13:45 02/12/20 15:30 White Blood Count 5.7 K/UL (4.8-10.8) Red Blood Count 5.77 M/UL (4.20-5.40) H Hemoglobin 14.1 G/DL (12.0-16.0) Hematocrit 45.4 % (37.0-47.0) Mean Corpuscular Volume 79 FL (80-99) L Mean Corpuscular Hemoglobin 24.4 PG (27.0-31.0) L Mean Corpuscular Hemoglobin Concent 31.0 G/DL (32.0-36.0) L Red Cell Distribution Width 16.3 % (11.6-14.8) H Platelet Count 563 K/UL (150-450) H Mean Platelet Volume 5.5 FL (6.5-10.1) L Neutrophils (%) (Auto) 59.1 % (45.0-75.0) Lymphocytes (%) (Auto) 26.9 % (20.0-45.0) Monocytes (%) (Auto) 5.8 % (1.0-10.0) Eosinophils (%) (Auto) 4.9 % (0.0-3.0) H Basophils (%) (Auto) 3.4 % (0.0-2.0) H Sodium Level 143 MMOL/L (136-145) Potassium Level 3.9 MMOL/L (3.5-5.1) Chloride Level 105 MMOL/L (98-107) Carbon Dioxide Level 31 MMOL/L (21-32) Anion Gap 7 mmol/L (5-15) Blood Urea Nitrogen 10 mg/dL (7-18) Creatinine 0.6 MG/DL (0.55-1.30) Estimat Glomerular Filtration Rate > 60 mL/min (>60) Glucose Level 95 MG/DL (74-106) Calcium Level 9.1 MG/DL (8.5-10.1) Total Bilirubin 0.3 MG/DL (0.2-1.0) Aspartate Amino Transf (AST/SGOT) 15 U/L (15-37) Alanine Aminotransferase (ALT/SGPT) 14 U/L (12-78) Alkaline Phosphatase 139 U/L (46-116) H Total Protein 7.4 G/DL (6.4-8.2) Albumin 3.2 G/DL (3.4-5.0) L Globulin 4.2 g/dL Albumin/Globulin Ratio 0.8 (1.0-2.7) L Urine Color Pale yellow Urine Appearance Slightly cloudy Urine pH 8 (4.5-8.0) Urine Specific [place] 1.010 (1.005-1.035) Urine Protein Negative (NEGATIVE) Urine Glucose (UA) Negative (NEGATIVE) Urine Ketones Negative (NEGATIVE) Urine Blood 2+ (NEGATIVE) H Urine Nitrite Negative (NEGATIVE) Urine Bilirubin Negative (NEGATIVE) Urine Urobilinogen Normal MG/DL (0.0-1.0) Urine Leukocyte Esterase 3+ (NEGATIVE) H Urine RBC 2-4 /HPF (0 - 2) H Urine WBC 60-80 /HPF (0 - 2) H Urine Squamous Epithelial Cells Moderate /LPF (NONE/OCC) H Urine Bacteria Many /HPF (NONE) H Urine Yeast Moderate /HPF (NONE) H Chato Oliveira MD Feb 12, 2020 18:08
[2020-02-12] MEDS: Docusate 100mg cap ORAL SCH (18:24)
[2020-02-12 20:00] VITALS: BP 147/87
[2020-02-12] MEDS: Heparin 5000 units/ml inj SUBQ SCH (20:53)
[2020-02-12] MEDS: Miralax 17gm pkt ORAL SCH (20:53)
--- NOTE | 2020-02-12 21:59 | Consultation ---
DATE OF CONSULTATION: 02/12/2020 CARDIOLOGY CONSULTATION CONSULTING PHYSICIAN: Chato Oliveira M.D. REFERRING PHYSICIAN: Contreras Olivas M.D. REASON FOR CONSULTATION: Management of accelerated hypertension. HISTORY OF PRESENT ILLNESS: The patient is an 84-year-old with history of hypertension, , nephrolithiasis, who was recently discharged for UTI due to a nonobstructive stone. The patient had progressive weakness. In the emergency room, the patient's blood pressure was 190/90, was admitted, and cardiology consultation was obtained for further evaluation. It is of note that the patient is allergic to lisinopril. At the time of my evaluation, the patient is feeling generally weak. Denies any chest pain or shortness of breath. REVIEW OF SYSTEMS: Negative other than what is mentioned in history of present illness. PAST MEDICAL HISTORY: As mentioned above. FAMILY HISTORY: Noncontributory. SOCIAL HISTORY: She does not smoke or drink alcohol. PHYSICAL EXAMINATION: VITAL SIGNS: Blood pressure of 160/86, pulse is 74, respiratory rate 16, temperature 97.6. HEAD AND NECK: No JVD. LUNGS: Decreased breath sounds. CARDIOVASCULAR: Regular S1 and S2 with no gallop or murmur. ABDOMEN: Soft. EXTREMITIES: 2+ pitting edema. LABORATORY DATA: Labs show white count of 5.7, hemoglobin of 14.1, hematocrit of 45.4, and platelet count of 563,000. Sodium 142, potassium 3.9, BUN of 10, creatinine 0.6, and glucose of 95. Urinalysis showed many bacteria and 3+ leukocyte esterase. ASSESSMENT AND PLAN: 1. Accelerated hypertension. The patient is on Procardia XL 30 mg daily and Cozaar 50 mg daily. The patient is also on p.r.n. clonidine 0.1 mg every 4 hours p.r.n. We will get an echocardiogram for further evaluation and management. In view of her lower extremity edema, I will start the patient also on Lasix 40 mg IV daily. 2. Status post right basal ganglia CVA. 3. History of laparotomy. 4. Failure to thrive. 5. Recent UTI with persistent , but currently afebrile and no white count. Thank you very much Dr. Olivas for allowing me to participate in the care of this patient. Please do not hesitate to contact me for any questions regarding my evaluation. Chato Oliveira M.D. DR: THERESA JOB#: [id number] CC:
[2020-02-12] MEDS ORDERED: Varibar Honey 250ml MC PRN (22:00)
[2020-02-12] MEDS ORDERED: Varibar Pudding 230ml MC PRN (22:00)
[2020-02-12] MEDS ORDERED: Varibar Thin Liquid powder 148gm MC PRN (22:00)
[2020-02-12] MEDS ORDERED: Varibar Nectar 240ml MC PRN (22:00)
[2020-02-13] VITALS: BP 132/81
[2020-02-13 04:35] VITALS: BP 125/67
[2020-02-13 05:43] LABS: BASOPHILS % (AUTO) 3.4 % (0.0-2.0); EOSINOPHILS % (AUTO) 6.6 % (0.0-3.0); HEMATOCRIT 37.9 % (37.0-47.0); MEAN CORPUSCULAR VOLUME 78 FL (80-99); MONOCYTES % (AUTO) 8.7 % (1.0-10.0); NEUTROPHILS % (AUTO) 55.4 % (45.0-75.0); PLATELET COUNT 479 K/UL (150-450); RED BLOOD COUNT 4.85 M/UL (4.20-5.40); RED CELL DISTRIBUTION WIDTH 15.8 % (11.6-14.8); WHITE BLOOD COUNT 6.1 K/UL (4.8-10.8)
[2020-02-13 06:13] LABS: ALANINE AMINOTRANSFERASE 14 U/L (12-78); ALBUMIN 2.5 G/DL (3.4-5.0); ALBUMIN/GLOBULIN RATIO 0.8 (1.0-2.7); ALKALINE PHOSPHATASE 106 U/L (46-116); ANION GAP 7 mmol/L (5-15); ASPARTATE AMINO TRANSFERASE 9 U/L (15-37); BILIRUBIN,TOTAL 0.2 MG/DL (0.2-1.0); BLOOD UREA NITROGEN 17 mg/dL (7-18); CALCIUM 8.6 MG/DL (8.5-10.1); CARBON DIOXIDE 27 MMOL/L (21-32); CHLORIDE 107 MMOL/L (98-107); CREATININE 0.7 MG/DL (0.55-1.30); SODIUM 141 MMOL/L (136-145)
[2020-02-13 08:00] VITALS: BP 124/65
[2020-02-13] MEDS: Docusate 100mg cap ORAL SCH ×2 (09:43→18:04)
[2020-02-13] MEDS: Losartan 50mg tab ORAL SCH (09:43)
[2020-02-13] MEDS: Heparin 5000 units/ml inj SUBQ SCH ×2 (09:45→21:26)
--- NOTE | 2020-02-13 10:12 | Pulmonology Progress Note ---
Simona Rios RUST PROOFER 02/13/20 1011: Subjective Allergies: Coded Allergies: ACETAMINOPHEN (Unverified Allergy, Unknown, 02/12/20) CODEINE (Unverified Allergy, Unknown, 02/12/20) LISINOPRIL (Verified Allergy, Unknown, 02/01/20) OXYCODONE (Verified Allergy, Unknown, 02/01/20) Subjective afebrile, no leukocytosis denies CP, SOB. no dysuria UCX + > 100 K GNR c/o constipation labs remains stable BP stabilized Objective Last 24 Hour Vital Signs Date Time Temp Pulse Resp B/P (MAP) Pulse Ox O2 Delivery O2 Flow Rate FiO2 02/13/20 09:43 124/65 02/13/20 09:43 71 124/65 02/13/20 08:00 97.5 71 18 124/65 (84) 95 02/13/20 04:35 97.3 89 18 125/67 (86) 95 02/13/20 00:00 97.9 82 18 132/81 (98) 95 02/12/20 20:00 97.3 85 20 147/87 (107) 95 02/12/20 18:31 Room Air 02/12/20 17:14 97.6 74 16 160/86 99 Room Air 02/12/20 16:38 97.8 80 14 158/68 96 Room Air 02/12/20 16:26 190/120 02/12/20 14:45 99.0 85 14 168/96 96 Room Air 02/12/20 13:15 98.9 81 14 171/81 96 Room Air 02/12/20 12:55 89 14 Room Air 02/12/20 12:46 99.0 89 14 190/90 (123) 96 Room Air Intake and Output 02/12/20 02/13/20 19:00 07:00 Intake Total 500 ml 350 ml Output Total 400 ml Balance 500 ml -50 ml Intake Oral 350 ml IV Total 500 ml Output Urine Total 400 ml # Voids 2 # Bowel Movements 1 General Appearance: no acute distress, other - awake, alert, rsponsive bedridden AA female with dysarthric speech HEENT: normocephalic, atraumatic, anicteric, mucous membranes moist, EOMI, supple, no JVD Respiratory: chest wall non-tender, lungs clear, no respiratory distress, no accessory muscle use Cardiovascular: normal peripheral pulses, normal rate, no JVD Abdomen: normal bowel sounds, soft, non tender, non distended Extremities: no edema, pedal pulses normal Skin: other - patches of vitiligo BLE, sacral area DTI POA Neurologic: abnormal gait, alert, responsive, other - dysarthric, R side hemiparesis Musculoskeletal: atrophy - BLE Microbiology Date/Time Source Procedure Growth Status 02/12/20 15:30 Urine,Clean Catch Urine Culture - Preliminary Gram Negative Deo Resulted Laboratory Tests 02/12/20 13:45: White Blood Count 5.7, Red Blood Count 5.77H, Hemoglobin 14.1, Hematocrit 45.4, Mean Corpuscular Volume 79L, Mean Corpuscular Hemoglobin 24.4L, Mean Corpuscular Hemoglobin Concent 31.0L, Red Cell Distribution Width 16.3H, Platelet Count 563H , Mean Platelet Volume 5.5L, Neutrophils (%) (Auto) 59.1, Lymphocytes (%) (Auto) 26.9, Monocytes (%) (Auto) 5.8, Eosinophils (%) (Auto) 4.9H, Basophils (%) (Auto) 3.4H, D-Dimer 2.30H, Sodium Level 143, Potassium Level 3.9, Chloride Level 105, Carbon Dioxide Level 31, Anion Gap 7, Blood Urea Nitrogen 10, Creatinine 0.6, Estimat Glomerular Filtration Rate > 60, Glucose Level 95, Calcium Level 9.1, Total Bilirubin 0.3, Aspartate Amino Transf (AST/SGOT) 15, Alanine Aminotransferase (ALT/SGPT) 14, Alkaline Phosphatase 139H, Total Protein 7.4, Albumin 3.2L, Globulin 4.2, Albumin/Globulin Ratio 0.8L, Thyroid S timulating Hormone (TSH) 1.446 02/12/20 15:30: Urine Color Pale yellow, Urine Appearance Slightly cloudy, Urine pH 8, Urine Specific [place] 1.010, Urine Protein Negative, Urine Glucose (UA) Negative, Urine Ketones Negative, Urine Blood 2+H, Urine Nitrite Negative, Urine Bilirubin Negative, Urine Urobilinogen Normal, Urine Leukocyte Esterase 3+H, Urine RBC 2- 4H, Urine WBC 60-80H, Urine Squamous Epithelial Cells ModerateH, Urine Bacteria ManyH, Urine Yeast ModerateH 02/13/20 05:20: White Blood Count 6.1, Red Blood Count 4.85, Hemoglobin 12.0, Hematocrit 37.9, Mean Corpuscular Volume 78L, Mean Corpuscular Hemoglobin 24.6L, Mean Corpuscular Hemoglobin Concent 31.5L, Red Cell Distribution Width 15.8H, Platelet Count 479H , Mean Platelet Volume 5.5L, Neutrophils (%) (Auto) 55.4, Lymphocytes (%) (Auto) 26.0, Monocytes (%) (Auto) 8.7, Eosinophils (%) (Auto) 6.6H, Basophils (%) (Auto) 3.4H, Sodium Level 141, Potassium Level 4.0, Chloride Level 107, Carbon Dioxide Level 27, Anion Gap 7, Blood Urea Nitrogen 17, Creatinine 0.7, Estimat Glomerular Filtration Rate > 60, Glucose Level 110H, Calcium Level 8.6, Total Bilirubin 0.2, Aspartate Amino Transf (AST/SGOT) 9L, Alanine Aminotransferase (ALT/SGPT) 14, Alkaline Phosphatase 106, Total Protein 5.5L, Albumin 2.5L, Globulin 3.0, Albumin/Globulin Ratio 0.8L, Thyroid Stimulating Hormone (TSH) 1.6 72, Troponin I 0.000, Pro-B-Type Natriuretic Peptide 254H Current Medications Medications (Trade) Dose Ordered Sig/Uriel Route PRN Reason Start Time Stop Time Status Last Admin Dose Admin Barium Sulfate (Varibar Honey) 250 ml NOW PRN RAD 02/12/20 22:00 02/15/20 21:53 Barium Sulfate (Varibar [place]) 240 ml NOW PRN RAD 02/12/20 22:00 02/15/20 21:53 Barium Sulfate (Varibar Pudding) 230 ml NOW PRN RAD 02/12/20 22:00 02/15/20 21:53 Barium Sulfate (Varibar Thin Liquid powder) 148 gm NOW PRN MC RAD 02/12/20 22:00 02/15/20 21:53 Clonidine HCl (Catapres Tab) 0.1 mg Q4H PRN ORAL SBP > 160 02/12/20 17:15 05/12/20 17:14 Diphenhydramine HCl (Benadryl) 25 mg Q6H PRN ORAL Itching 02/13/20 04:15 03/14/20 04:14 02/13/20 04:24 Docusate Sodium (Colace) 100 mg TWICE A DAY ORAL 02/12/20 18:00 03/13/20 17:59 02/13/20 09:43 Furosemide (Lasix) 40 mg DAILY IV 02/13/20 09:00 03/14/20 08:59 02/13/20 09:44 Gabapentin (Neurontin) 300 mg TID@0200,1000,1800 ORAL 02/13/20 02:00 03/14/20 01:59 02/13/20 09:43 Heparin Sodium (Porcine) (Heparin 5000 units/ml) 5,000 units EVERY 12 HOURS SUBQ 02/12/20 21:00 03/28/20 20:59 02/13/20 09:45 Losartan Potassium (Cozaar) 50 mg DAILY ORAL 02/13/20 09:00 03/14/20 08:59 02/13/20 09:43 Nifedipine (Procardia XL) 30 mg DAILY ORAL 02/13/20 09:00 03/14/20 08:59 02/13/20 09:43 Polyethylene Glycol (Miralax) 17 gm BEDTIME ORAL 02/12/20 21:00 03/13/20 20:59 Assessment/Plan Assessment/Plan ASSESSMENT/PROBLEM LIST: * FTT * Recurrent UTI with hx of recent UTI * Nephrolithiasis * 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 * HTN with initial HTN urgency * Leg pain * Constipation * Sacral DTI, POA PLAN: * [place] floor * IVF hydration * CT A/P noted * Ucx+ GNR, start empiric abx, ID eval * BP control, continue Nifedipine, add Lisinopril 5 + PRN Clonidine, BP stabilized with current regimen * second troponin negative as well, TTE pending * TSH wnl * cardio eval appreciated * Duplex BLE, D-dimer -2.3 * Monitor volumes and renal function * Aspiration precautions , BSSE pending * DVT Px: Hep SQ * PT eval and Rx * bowel regimen * wound care as per jennyfer recs, eval pending * FC * Dispo planning to SNF: [facility] or Rehab case discussed and evaluated by supervising physician Contreras Olivas MD 02/13/20 1104: Subjective Allergies: Coded Allergies: ACETAMINOPHEN (Unverified Allergy, Unknown, 02/12/20) CODEINE (Unverified Allergy, Unknown, 02/12/20) LISINOPRIL (Verified Allergy, Unknown, 02/01/20) OXYCODONE (Verified Allergy, Unknown, 02/01/20) Assessment/Plan Assessment/Plan Patient seen and examined with RUST PROOFER. Agree with above A&P as it reflects our joint deliberations. D-dimer elevated, prelim duplex neg, check CT-A + UTI Abx started, ID eval pending mIVF F/U TTE and cards recs Aspiration precautions, [employer] recs Hep SQ Dispo planning to [facility] Simona Rios NP Feb 13, 2020 10:11 Contreras Olivas MD Feb 13, 2020 11:04
[2020-02-13] MEDS ORDERED: Omnipaque 350 100ml vial INJ PRN (11:15)
[2020-02-13] MEDS: cefTRIAXone 1 GM in D5W 55 ML IVPB SCH (11:58)
[2020-02-13 12:00] VITALS: BP 124/67
--- NOTE | 2020-02-13 14:18 | Cardiac Electrophysiology PN ---
Assessment/Plan Assessment/Plan 1. Accelerated hypertension. On Procardia XL 30 mg daily, Cozaar 50 mg daily and Lasix 40 iv daily. On p.r.n. clonidine 0.1 mg every 4 hours p.r.n. EF 65%. 2. Status post right basal ganglia CVA. 3. History of laparotomy. 4. Failure to thrive. 5. Recent UTI 6. SOB and high D Dimer. Chest CT angio pending DW RN Subjective Subjective Getting Chest CT angio as was SOB, coughing and D Dimer was high Objective Last 24 Hour Vital Signs Date Time Temp Pulse Resp B/P (MAP) Pulse Ox O2 Delivery O2 Flow Rate FiO2 02/13/20 09:43 124/65 02/13/20 09:43 71 124/65 02/13/20 08:00 97.5 71 18 124/65 (84) 95 02/13/20 04:35 97.3 89 18 125/67 (86) 95 02/13/20 00:00 97.9 82 18 132/81 (98) 95 02/12/20 20:00 97.3 85 20 147/87 (107) 95 02/12/20 18:31 Room Air 02/12/20 17:14 97.6 74 16 160/86 99 Room Air 02/12/20 16:38 97.8 80 14 158/68 96 Room Air 02/12/20 16:26 190/120 02/12/20 14:45 99.0 85 14 168/96 96 Room Air Intake and Output 02/12/20 02/13/20 19:00 07:00 Intake Total 500 ml 350 ml Output Total 400 ml Balance 500 ml -50 ml Intake Oral 350 ml IV Total 500 ml Output Urine Total 400 ml # Voids 2 # Bowel Movements 1 Laboratory Tests Test 02/12/20 15:30 02/13/20 05:20 Urine Color Pale yellow Urine Appearance Slightly cloudy Urine pH 8 (4.5-8.0) Urine Specific [place] 1.010 (1.005-1.035) Urine Protein Negative (NEGATIVE) Urine Glucose (UA) Negative (NEGATIVE) Urine Ketones Negative (NEGATIVE) Urine Blood 2+ (NEGATIVE) H Urine Nitrite Negative (NEGATIVE) Urine Bilirubin Negative (NEGATIVE) Urine Urobilinogen Normal MG/DL (0.0-1.0) Urine Leukocyte Esterase 3+ (NEGATIVE) H Urine RBC 2-4 /HPF (0 - 2) H Urine WBC 60-80 /HPF (0 - 2) H Urine Squamous Epithelial Cells Moderate /LPF (NONE/OCC) H Urine Bacteria Many /HPF (NONE) H Urine Yeast Moderate /HPF (NONE) H White Blood Count 6.1 K/UL (4.8-10.8) Red Blood Count 4.85 M/UL (4.20-5.40) Hemoglobin 12.0 G/DL (12.0-16.0) Hematocrit 37.9 % (37.0-47.0) Mean Corpuscular Volume 78 FL (80-99) L Mean Corpuscular Hemoglobin 24.6 PG (27.0-31.0) L Mean Corpuscular Hemoglobin Concent 31.5 G/DL (32.0-36.0) L Red Cell Distribution Width 15.8 % (11.6-14.8) H Platelet Count 479 K/UL (150-450) H Mean Platelet Volume 5.5 FL (6.5-10.1) L Neutrophils (%) (Auto) 55.4 % (45.0-75.0) Lymphocytes (%) (Auto) 26.0 % (20.0-45.0) Monocytes (%) (Auto) 8.7 % (1.0-10.0) Eosinophils (%) (Auto) 6.6 % (0.0-3.0) H Basophils (%) (Auto) 3.4 % (0.0-2.0) H Sodium Level 141 MMOL/L (136-145) Potassium Level 4.0 MMOL/L (3.5-5.1) Chloride Level 107 MMOL/L (98-107) Carbon Dioxide Level 27 MMOL/L (21-32) Anion Gap 7 mmol/L (5-15) Blood Urea Nitrogen 17 mg/dL (7-18) Creatinine 0.7 MG/DL (0.55-1.30) Estimat Glomerular Filtration Rate > 60 mL/min (>60) Glucose Level 110 MG/DL (74-106) H Calcium Level 8.6 MG/DL (8.5-10.1) Total Bilirubin 0.2 MG/DL (0.2-1.0) Aspartate Amino Transf (AST/SGOT) 9 U/L (15-37) L Alanine Aminotransferase (ALT/SGPT) 14 U/L (12-78) Alkaline Phosphatase 106 U/L (46-116) Troponin I 0.000 ng/mL (0.000-0.056) Pro-B-Type Natriuretic Peptide 254 pg/mL (0-125) H Total Protein 5.5 G/DL (6.4-8.2) L Albumin 2.5 G/DL (3.4-5.0) L Globulin 3.0 g/dL Albumin/Globulin Ratio 0.8 (1.0-2.7) L Thyroid Stimulating Hormone (TSH) 1.672 uiU/mL (0.358-3.740) Microbiology Date/Time Source Procedure Growth Status 02/12/20 15:30 Urine,Clean Catch Urine Culture - Preliminary Gram Negative Deo Resulted Objective HEAD AND NECK: No JVD. LUNGS: Decreased breath sounds. CARDIOVASCULAR: Regular S1 and S2 with no gallop or murmur. ABDOMEN: Soft. EXTREMITIES: 2+ pitting edema. Chato Oliveira MD Feb 13, 2020 14:18
--- NOTE | 2020-02-13 15:26 | Diagnostic Imaging Report ---
Indication: Shortness of breath Technique: One view of the chest Comparison: none Findings: Inspiration is suboptimal. There is crowding of the bronchovascular markings at the lung bases. The heart size is upper limits of normal. Impression: Hypoventilatory exam. No definite acute abnormality
--- NOTE | 2020-02-13 15:27 | Diagnostic Imaging Report ---
Indication: Increased bilateral lower extremity pain Technique: Grayscale and duplex images of the bilateral lower extremity veins Comparison: None Findings: Bilaterally, grayscale and duplex images demonstrate no evidence of intraluminal thrombus. Normal phasic Doppler waveforms, demonstrating normal augmentation response and no evidence of valvular insufficiency. Greater saphenous vein(s) and tibial veins are patent. Normal compressibility. Note, however, that the right popliteal vein could not be imaged due to patient immobility Impression: Negative for evidence of lower extremity deep venous thrombosis bilaterally Note, however, inability to visualize the left popliteal vein. Venous thrombus in this segment therefore cannot be completely excluded
[2020-02-13 16:00] VITALS: BP 102/54
--- NOTE | 2020-02-13 16:03 | Consultation ---
History of Present Illness General Date patient seen: Feb 13, 2020 Reason for Hospitalization: General Complaint Present Illness HPI This is a very pleasant 84-year-old female multi-medical comorbidities who presents [facility] with bilateral hip pain and worsening weakness. She is known history not obstructing stone causing UTI that was treated prior. On admission abnormal labs identified decubitus ulcers failure to thrive surgery called to evaluate and assist with care. Patient seen, patient evaluated, chart reviewed. Patient states she feels very weak and needs a nap. No nausea vomiting fever chills. Allergies: Coded Allergies: ACETAMINOPHEN (Unverified Allergy, Unknown, 02/12/20) CODEINE (Unverified Allergy, Unknown, 02/12/20) LISINOPRIL (Verified Allergy, Unknown, 02/01/20) OXYCODONE (Verified Allergy, Unknown, 02/01/20) COVID-19 Screening Contact w/high risk pt: No Experienced COVID-19 symptoms?: No Medication History Scheduled Cefuroxime Axetil* (Cefuroxime*), 500 MG PO Q12HR Docusate Sodium* (Colace*), 100 MG ORAL TWICE A DAY Gabapentin* (Gabapentin*), 300 MG ORAL THREE TIMES A DAY, (Reported) Nifedipine Xl* (Procardia Xl*), 30 MG ORAL DAILY Polyethylene Glycol 3350 (Miralax), 17 GM ORAL BEDTIME Patient History History Provided By: Patient, Medical Record, PMD Healthcare decision maker Resuscitation status Advanced Directive on File Past Medical/Surgical History Past Medical/Surgical History: (1) Nephrolithiasis (2) UTI (urinary tract infection) (3) FTT (failure to thrive) in adult Review of Systems Review of Symptoms General ROS: no weight loss or fever Psychological ROS: no depression or mood changes, no memory loss Ophthalmic ROS: no visual changes or eye irritation ENT ROS: no nasal congestion, hearing loss, dizziness Allergy and Immunology ROS: no allergic symptoms or urticaria Hematological and Lymphatic ROS: no swollen glands, unusual bleeding or bruising Endocrine ROS: no polyuria, polydipsia, weight changes, temperature intolerance Respiratory ROS: no cough, shortness of breath, or wheezing Cardiovascular ROS: no chest pain or dyspnea on exertion Gastrointestinal ROS: denies abdominal pain, bright red blood in stool. Musculoskeletal ROS: no myalgias or arthralgias Neurological ROS: no TIA or stroke symptoms Dermatological ROS: no new or changing skin lesions, rashes or pruritis Physical Exam Physical Exam General appearance: alert, cooperative, no distress, appears stated age Head: Normocephalic, without obvious abnormality, atraumatic Eyes: conjunctivae/corneas clear. PERRL, EOM's intact. Fundi benign Throat: Lips, mucosa, and tongue normal. Teeth and gums normal Neck: supple, symmetrical, trachea midline, no adenopathy, thyroid: not enlarged, symmetric, no tenderness/mass/nodules, no carotid bruit and no JVD Lungs: clear to auscultation bilaterally Heart: regular rate and rhythm, S1, S2 normal, no murmur, click, rub or gallop Abdomen: soft, non-tender. Bowel sounds normal. No masses, no organomegaly Extremities: extremities normal, atraumatic, no cyanosis or edema Pulses: 2+ and symmetric Skin: Skin see below Neurologic: Grossly normal Last 24 Hour Vital Signs Date Time Temp Pulse Resp B/P (MAP) Pulse Ox O2 Delivery O2 Flow Rate FiO2 02/13/20 12:00 98.7 74 18 124/67 (86) 95 02/13/20 09:43 124/65 02/13/20 09:43 71 124/65 02/13/20 08:00 97.5 71 18 124/65 (84) 95 02/13/20 04:35 97.3 89 18 125/67 (86) 95 02/13/20 00:00 97.9 82 18 132/81 (98) 95 02/12/20 20:00 97.3 85 20 147/87 (107) 95 02/12/20 18:31 Room Air 02/12/20 17:14 97.6 74 16 160/86 99 Room Air 02/12/20 16:38 97.8 80 14 158/68 96 Room Air 02/12/20 16:26 190/120 Intake and Output 02/12/20 02/13/20 19:00 07:00 Intake Total 500 ml 350 ml Output Total 400 ml Balance 500 ml -50 ml Intake Oral 350 ml IV Total 500 ml Output Urine Total 400 ml # Voids 2 # Bowel Movements 1 Laboratory Tests Test 02/13/20 05:20 White Blood Count 6.1 K/UL (4.8-10.8) Red Blood Count 4.85 M/UL (4.20-5.40) Hemoglobin 12.0 G/DL (12.0-16.0) Hematocrit 37.9 % (37.0-47.0) Mean Corpuscular Volume 78 FL (80-99) L Mean Corpuscular Hemoglobin 24.6 PG (27.0-31.0) L Mean Corpuscular Hemoglobin Concent 31.5 G/DL (32.0-36.0) L Red Cell Distribution Width 15.8 % (11.6-14.8) H Platelet Count 479 K/UL (150-450) H Mean Platelet Volume 5.5 FL (6.5-10.1) L Neutrophils (%) (Auto) 55.4 % (45.0-75.0) Lymphocytes (%) (Auto) 26.0 % (20.0-45.0) Monocytes (%) (Auto) 8.7 % (1.0-10.0) Eosinophils (%) (Auto) 6.6 % (0.0-3.0) H Basophils (%) (Auto) 3.4 % (0.0-2.0) H Sodium Level 141 MMOL/L (136-145) Potassium Level 4.0 MMOL/L (3.5-5.1) Chloride Level 107 MMOL/L (98-107) Carbon Dioxide Level 27 MMOL/L (21-32) Anion Gap 7 mmol/L (5-15) Blood Urea Nitrogen 17 mg/dL (7-18) Creatinine 0.7 MG/DL (0.55-1.30) Estimat Glomerular Filtration Rate > 60 mL/min (>60) Glucose Level 110 MG/DL (74-106) H Calcium Level 8.6 MG/DL (8.5-10.1) Total Bilirubin 0.2 MG/DL (0.2-1.0) Aspartate Amino Transf (AST/SGOT) 9 U/L (15-37) L Alanine Aminotransferase (ALT/SGPT) 14 U/L (12-78) Alkaline Phosphatase 106 U/L (46-116) Troponin I 0.000 ng/mL (0.000-0.056) Pro-B-Type Natriuretic Peptide 254 pg/mL (0-125) H Total Protein 5.5 G/DL (6.4-8.2) L Albumin 2.5 G/DL (3.4-5.0) L Globulin 3.0 g/dL Albumin/Globulin Ratio 0.8 (1.0-2.7) L Thyroid Stimulating Hormone (TSH) 1.672 uiU/mL (0.358-3.740) Height (Feet): 5 Height (Inches): 5.00 Weight (Pounds): 180 Medications Current Medications Medications (Trade) Dose Ordered Sig/Uriel Route PRN Reason Start Time Stop Time Status Last Admin Dose Admin Barium Sulfate (Varibar Honey) 250 ml NOW PRN MC RAD 02/12/20 22:00 02/15/20 21:53 Barium Sulfate (Varibar [place]) 240 ml NOW PRN MC RAD 02/12/20 22:00 02/15/20 21:53 Barium Sulfate (Varibar Pudding) 230 ml NOW PRN RAD 02/12/20 22:00 02/15/20 21:53 Barium Sulfate (Varibar Thin Liquid powder) 148 gm NOW PRN RAD 02/12/20 22:00 02/15/20 21:53 Ceftriaxone Sodium 1 gm/ Dextrose 55 ml @ 110 mls/hr Q24H IVPB 02/13/20 11:00 02/20/20 10:59 02/13/20 11:58 Clonidine HCl (Catapres Tab) 0.1 mg Q4H PRN ORAL SBP > 160 02/12/20 17:15 05/12/20 17:14 Diphenhydramine HCl (Benadryl) 25 mg Q6H PRN ORAL Itching 02/13/20 04:15 03/14/20 04:14 02/13/20 15:11 Docusate Sodium (Colace) 100 mg TWICE A DAY ORAL 02/12/20 18:00 03/13/20 17:59 02/13/20 09:43 Furosemide (Lasix) 40 mg DAILY IV 02/13/20 09:00 03/14/20 08:59 02/13/20 09:44 Gabapentin (Neurontin) 300 mg TID@0200,1000,1800 ORAL 02/13/20 02:00 03/14/20 01:59 02/13/20 09:43 Heparin Sodium (Porcine) (Heparin 5000 units/ml) 5,000 units EVERY 12 HOURS SUBQ 02/12/20 21:00 03/28/20 20:59 02/13/20 09:45 Iohexol (Omnipaque 350 100ml) 100 ml NOW PRN INJ Radiology Procedure 02/13/20 11:15 02/15/20 11:14 Losartan Potassium (Cozaar) 50 mg DAILY ORAL 02/13/20 09:00 03/14/20 08:59 02/13/20 09:43 Nifedipine (Procardia XL) 30 mg DAILY ORAL 02/13/20 09:00 03/14/20 08:59 02/13/20 09:43 Polyethylene Glycol (Miralax) 17 gm BEDTIME ORAL 02/12/20 21:00 03/13/20 20:59 Assessment/Plan Problem List: (1) Decubitus skin ulcer Assessment & Plan: Pt presented on admission with Full thickness Pressure Injury Sacrum/R Buttocks. Base of wound is moist,lindsey with scattered areas of Slough, and Biofilm, Borders are irregular. Small amt serosanguineous exudate.(L)7cm x (W)7.5cm x(D)0.2cm. Surrounding non-blanchable erythema with additional shearing periwound. Unstageable Pressure Injury Maria D Cleft of Buttocks(L)2.5cm x (W)0.9cm. Base of Pressure Injury is 95% slough,5% lindsey with surrounding non-blanching erythema. Scattered epithelial and hyperpigmentation noted to L buttocks. R lower extremity internally rotated. Xerosis skin Bilat lower ext. An area of hyperpigmentation noted to R tibia. Both heels are non-blanchable but wihtou fluctuance. Pt complained both heels are tender to minimal touch. Tx.Plan: Cleanse wounds Buttocks with Saline. Apply Therahoney . Apply Moisture Barrier Paste Periwound. Cover with Optifoam drsg. Change every 3 days and prn. Moisturize Both lower ext with Phytoplex Lotion. Apply Cavilon Skin Barrier to both heels and Malleoli. Cover each site with Optifoam drsg. Change every 7 days and prn. Reposition at least every 2hours or as tolerated. Off-load heels with Pillow. ICD Codes: L89.90 - Pressure ulcer of unspecified site, unspecified stage SNOMED: 796604137 (2) Nephrolithiasis ICD Codes: N20.0 - Calculus of kidney SNOMED: 39948462 (3) UTI (urinary tract infection) ICD Codes: N39.0 - Urinary tract infection, site not specified SNOMED: 06561598 (4) FTT (failure to thrive) in adult Assessment & Plan: DAILY ESTIMATED NEEDS: Needs based on Wound, obese, cardiac 63.6abw 25-30 kcals/kg 3849-8978 total kcals 1.25-1.5 g protein/kg 80-95 g total protein Fluid per MD, on lasix NUTRITION DIAGNOSIS: Decreased sodium needs r/t h/o CVA as evidenced by pt w/ HTN, elev BP on adm, now on lasix. CURRENT DIET: Regular diet, ms finely chopped PO DIET RECOMMENDATIONS: LOW NA DIET (texture per [employer]ATE [employer]STATE [employer]GER) ADDITIONAL RECOMMENDATIONS: 1) Maintain calibrated bed scale wts 2) Monitor for continued good po intake 3) F/up w/ WC eval 4) Monitor lytes daily on lasix 5) F/up w/ PO intake, need for snacks, supplements ICD Codes: R62.7 - Adult failure to thrive SNOMED: 054995544 Aaron Thomas Feb 13, 2020 16:03
--- NOTE | 2020-02-13 16:51 | Diagnostic Imaging Report ---
Indication: Altered mental status, slurred speech, right-sided weakness Technique: sagittal T1 fast spin echo, axial T1 FLAIR, axial T2 FLAIR, axial T2 FS PROPELLER, axial T2* GRE, axial diffusion weighted images. ADC and exponential ADC maps generated Comparison: none Findings: Apparent small focus of slightly high diffusion signal is seen in the right hernández radiata, but appears also high signal on the ADC map, is likely artifactual. No definite abnormal foci of restricted diffusion to suggest acute infarct demonstrated.. No acute hemorrhage or edema. There is a large area of cystic encephalomalacia involving the left temporal lobe, the inferior parietal lobe, and basal ganglia. There is extensive adjacent gliosis within the left parietal and posterior frontal lobes. Susceptibility artifact surrounding the area of cystic encephalomalacia indicates this may in part be residual of an old bleed. There is some susceptibility artifact in the left posterior hernández radiata and basal ganglia region. This is associated with uniformly low T1 and T2 signal, may reflect calcification rather than blood products. There is atrophy of the left cerebral peduncle, likely related. The vascular flow voids are preserved. There is generalized age-related enlargement of the ventricles and extra axial CSF spaces. There is extensive deep white matter high T2 signal, consistent with chronic microvascular ischemic change. No mass effect nor midline shift. Visualized orbits and sinuses are unremarkable. There is considerable right mastoid fluid. Impression: Negative for acute intracranial bleed, mass effect, or infarct. Large area of encephalomalacia including a large cystic component, in the left temporal, parietal, frontal lobes and basal ganglia region, consistent with a middle cerebral artery distribution infarct. Some peripheral susceptibility artifact may indicate prior hemorrhage as well. Probable dystrophic calcifications in the posterior right hernández radiata and basal ganglia Other chronic and age-related changes, as described Right mastoid effusion incidentally noted
--- NOTE | 2020-02-13 17:42 | Diagnostic Imaging Report ---
ndication: Chest pain Technique: IV administration nonionic contrast. Spiral acquisitions obtained from the lung bases to the lung apices. Multiplanar and 3-D reconstructions were generated. Total dose length product 97 mGycm. CTDIvol(s) 2, 19 mGy. Dose reduction achieved using automated exposure control Comparison: none Findings: Pulmonary arteries are well-opacified. No definite intraluminal filling defects or other findings to suggest pulmonary emboli are demonstrated. Normal caliber pulmonary arteries. No evidence of thoracic aortic aneurysm or dissection. No evidence of right ventricular dilatation. The lungs demonstrate a slight mosaic perfusion pattern. There is elevation of the right hemidiaphragm. This results in atelectatic changes of the base of the right lower lobe. There is also some crowding of the bronchovascular markings in the left lower lobe. No definite infiltrates, effusions, masses, or nodules are demonstrated. The esophagus is markedly dilated gas-filled proximally, fluid-filled distally. The dilatation appears to extend to the distal esophagus. The heart is borderline enlarged. No pericardial effusion demonstrated. No mediastinal or hilar mass or adenopathy. The thyroid demonstrates a 19 mm low-attenuation lesion in the lower pole of the left lobe. No axillary or chest wall mass or adenopathy. There appears to be a very large joint effusion surrounding the left humeral head. There are chronic appearing erosive changes of the limit and to a lesser extent the humeral head. No axillary or chest wall mass or adenopathy. There is degenerative spondylosis noted. The included upper abdominal anatomy is unremarkable. Impression: No evidence of acute pulmonary embolus or other acute thoracic vascular pathology Elevated right hemidiaphragm. Resultant basilar atelectatic changes. No definite infiltrates Borderline cardiomegaly Slight mosaic pulmonary perfusion pattern. There is a broad differential, but possibly on the basis of very mild pulmonary edema Markedly dilated gas and fluid-filled esophagus. Most likely secondary to distal dysmotility, but given the degree of distention the possibility of the downstream obstructive lesion should also be considered. Large left humeral head joint effusion. Fairly extensive chronic appearing erosive changes of the glenoid could be due to degenerative changes, but given the large effusion the possibility of septic arthropathy should also be considered. Correlate with clinical findings and history. Findings discussed by phone with Dr. Olivas at the time of interpretation The CT scanner at [facility] is accredited by the [employer] and the scans are performed using protocols designed to limit radiation exposure to as low as reasonably achievable to attain images of sufficient resolution adequate for diagnostic evaluation.
--- NOTE | 2020-02-13 18:20 | Infectious Diseases Prog Note ---
Assessment/Plan Assessment/Plan 84 yo known from previous admission - asked to evaluate patient for uti. ASSESSMENT AND PLAN: 1. ? gram neg complicated uti with FTT, weakness, + ua - ceftriaxone started - f/u on urine cultures - monitor labs - communicated with primary care team - d/w RN 2. CVA with right-sided weakness and dysarthria. 3. Kidney stone. 4. Urology been consulted. 5. Hypertension. 6. Blood pressure treatment per Dr. Olivas. 7. History of diverticulitis requiring surgery in the past. 8. No history of diabetes or cancer. 9. Monitor for aspiration with history of CVA and right-sided weakness. 10. No evidence or signs and symptoms of COVID-19 infection. 11. Allergies to acetaminophen, lisinopril, and oxycodone. She also told me penicillin, but that is not documented. I am not clear. She tolerated Rocephin. 12. Family history is noncontributory. 13. Social history is negative. 14. MAR is noted. 15. Case was discussed also with the RN. 16. Case discussed with Dr. Olivas. 17. Continue treatment per primary consultants. Subjective Constitutional: Reports: fatigue, other - FTT per history ; Denies: fever HEENT: Denies: congestion Respiratory: Denies: shortness of breath Cardiovascular: Denies: chest pain Gastrointestinal/Abdominal: Denies: nausea, vomiting, diarrhea Genitourinary: Reports: other - no garcia Neurologic: Denies: headache Psychiatric: Reports: other - NA Skin: Denies: rash Hematologic: Denies: bleeding Musculoskeletal: Denies: pain Allergies: Coded Allergies: ACETAMINOPHEN (Unverified Allergy, Unknown, 02/12/20) CODEINE (Unverified Allergy, Unknown, 02/12/20) LISINOPRIL (Verified Allergy, Unknown, 02/01/20) OXYCODONE (Verified Allergy, Unknown, 02/01/20) Objective Last 24 Hour Vital Signs Date Time Temp Pulse Resp B/P (MAP) Pulse Ox O2 Delivery O2 Flow Rate FiO2 02/13/20 16:00 97.7 85 18 102/54 (70) 94 02/13/20 12:00 98.7 74 18 124/67 (86) 95 02/13/20 09:43 124/65 02/13/20 09:43 71 124/65 9/23/20 08:00 97.5 71 18 124/65 (84) 95 02/13/20 04:35 97.3 89 18 125/67 (86) 95 02/13/20 00:00 97.9 82 18 132/81 (98) 95 02/12/20 20:00 97.3 85 20 147/87 (107) 95 02/12/20 18:31 Room Air Height (Feet): 5 Height (Inches): 5.00 Weight (Pounds): 180 General Appearance: no acute distress HEENT: normocephalic, atraumatic, anicteric, supple, no JVD Respiratory/Chest: lungs clear, normal breath sounds, no respiratory distress, no accessory muscle use Cardiovascular: normal rate, regular rhythm, no gallop/murmur, no JVD Abdomen: normal bowel sounds, soft, non tender, no organomegaly, non distended Genitourinary: other - no garcia, no cva pain Extremities: no cyanosis Skin: no rash Neurologic/Psychiatric: valance cutter II-XII grossly normal, alert, responsive Lymphatic: no neck adenopathy Musculoskeletal: no effusion CTA - Chest: Impression: No evidence of acute pulmonary embolus or other acute thoracic vascular pathology Elevated right hemidiaphragm. Resultant basilar atelectatic changes. No definite infiltrates Borderline cardiomegaly Slight mosaic pulmonary perfusion pattern. There is a broad differential, but possibly on the basis of very mild pulmonary edema Markedly dilated gas and fluid-filled esophagus. Most likely secondary to distal dysmotility, but given the degree of distention the possibility of the downstream obstructive lesion should also be considered. Large left humeral head joint effusion. Fairly extensive chronic appearing erosive changes of the glenoid could be due to degenerative changes, but given the large effusion the possibility of septic arthropathy should also be considered. Correlate with clinical findings and history. Chest x-ray - 02/13/20 - Procedure: XRAY Chest 1v Indication: Shortness of breath Technique: One view of the chest Comparison: none Findings: Inspiration is suboptimal. There is crowding of the bronchovascular markings at the lung bases. The heart size is upper limits of normal. Impression: Hypoventilatory exam. No definite acute abnormality Microbiology Date/Time Source Procedure Growth Status 02/12/20 15:30 Urine,Clean Catch Urine Culture - Preliminary Gram Negative Deo Resulted Laboratory Tests Test 02/13/20 05:20 White Blood Count 6.1 K/UL (4.8-10.8) Red Blood Count 4.85 M/UL (4.20-5.40) Hemoglobin 12.0 G/DL (12.0-16.0) Hematocrit 37.9 % (37.0-47.0) Mean Corpuscular Volume 78 FL (80-99) L Mean Corpuscular Hemoglobin 24.6 PG (27.0-31.0) L Mean Corpuscular Hemoglobin Concent 31.5 G/DL (32.0-36.0) L Red Cell Distribution Width 15.8 % (11.6-14.8) H Platelet Count 479 K/UL (150-450) H Mean Platelet Volume 5.5 FL (6.5-10.1) L Neutrophils (%) (Auto) 55.4 % (45.0-75.0) Lymphocytes (%) (Auto) 26.0 % (20.0-45.0) Monocytes (%) (Auto) 8.7 % (1.0-10.0) Eosinophils (%) (Auto) 6.6 % (0.0-3.0) H Basophils (%) (Auto) 3.4 % (0.0-2.0) H Sodium Level 141 MMOL/L (136-145) Potassium Level 4.0 MMOL/L (3.5-5.1) Chloride Level 107 MMOL/L (98-107) Carbon Dioxide Level 27 MMOL/L (21-32) Anion Gap 7 mmol/L (5-15) Blood Urea Nitrogen 17 mg/dL (7-18) Creatinine 0.7 MG/DL (0.55-1.30) Estimat Glomerular Filtration Rate > 60 mL/min (>60) Glucose Level 110 MG/DL (74-106) H Calcium Level 8.6 MG/DL (8.5-10.1) Total Bilirubin 0.2 MG/DL (0.2-1.0) Aspartate Amino Transf (AST/SGOT) 9 U/L (15-37) L Alanine Aminotransferase (ALT/SGPT) 14 U/L (12-78) Alkaline Phosphatase 106 U/L (46-116) Troponin I 0.000 ng/mL (0.000-0.056) Pro-B-Type Natriuretic Peptide 254 pg/mL (0-125) H Total Protein 5.5 G/DL (6.4-8.2) L Albumin 2.5 G/DL (3.4-5.0) L Globulin 3.0 g/dL Albumin/Globulin Ratio 0.8 (1.0-2.7) L Thyroid Stimulating Hormone (TSH) 1.672 uiU/mL (0.358-3.740) Current Medications Medications (Trade) Dose Ordered Sig/Uriel Route PRN Reason Start Time Stop Time Status Last Admin Dose Admin Barium Sulfate (Varibar Honey) 250 ml NOW PRN RAD 02/12/20 22:00 02/15/20 21:53 Barium Sulfate (Varibar [place]) 240 ml NOW PRN RAD 02/12/20 22:00 02/15/20 21:53 Barium Sulfate (Varibar Pudding) 230 ml NOW PRN RAD 02/12/20 22:00 02/15/20 21:53 Barium Sulfate (Varibar Thin Liquid powder) 148 gm NOW PRN RAD 02/12/20 22:00 02/15/20 21:53 Ceftriaxone Sodium 1 gm/ Dextrose 55 ml @ 110 mls/hr Q24H IVPB 02/13/20 11:00 02/20/20 10:59 02/13/20 11:58 Clonidine HCl (Catapres Tab) 0.1 mg Q4H PRN ORAL SBP > 160 02/12/20 17:15 05/12/20 17:14 Diphenhydramine HCl (Benadryl) 25 mg Q6H PRN ORAL Itching 02/13/20 04:15 03/14/20 04:14 02/13/20 15:11 Docusate Sodium (Colace) 100 mg TWICE A DAY ORAL 02/12/20 18:00 03/13/20 17:59 02/13/20 18:04 Furosemide (Lasix) 40 mg DAILY IV 02/13/20 09:00 03/14/20 08:59 02/13/20 09:44 Gabapentin (Neurontin) 300 mg TID@0200,1000,1800 ORAL 02/13/20 02:00 03/14/20 01:59 02/13/20 18:04 Heparin Sodium (Porcine) (Heparin 5000 units/ml) 5,000 units EVERY 12 HOURS SUBQ 02/12/20 21:00 03/28/20 20:59 02/13/20 09:45 Iohexol (Omnipaque 350 100ml) 100 ml NOW PRN INJ Radiology Procedure 02/13/20 11:15 02/15/20 11:14 Losartan Potassium (Cozaar) 50 mg DAILY ORAL 02/13/20 09:00 03/14/20 08:59 02/13/20 09:43 Nifedipine (Procardia XL) 30 mg DAILY ORAL 02/13/20 09:00 03/14/20 08:59 02/13/20 09:43 Polyethylene Glycol (Miralax) 17 gm BEDTIME ORAL 02/12/20 21:00 03/13/20 20:59 Darrell Alcazar MD Feb 13, 2020 18:19
[2020-02-13 20:00] VITALS: BP 113/61
[2020-02-13] MEDS: Miralax 17gm pkt ORAL SCH (21:25)
[2020-02-13] MEDS: D5 1/2NS 1,000 ML IV SCH (23:25)
[2020-02-14] VITALS: BP 115/63
[2020-02-14 04:00] VITALS: BP 143/72
[2020-02-14 06:42] LABS: BASOPHILS % (AUTO) 2.9 % (0.0-2.0); EOSINOPHILS % (AUTO) 6.2 % (0.0-3.0); HEMATOCRIT 40.6 % (37.0-47.0); HEMOGLOBIN 12.7 G/DL (12.0-16.0); LYMPHOCYTES % (AUTO) 36.7 % (20.0-45.0); MEAN CORPUSCULAR VOLUME 78 FL (80-99); MONOCYTES % (AUTO) 9.1 % (1.0-10.0); NEUTROPHILS % (AUTO) 45.1 % (45.0-75.0); PLATELET COUNT 446 K/UL (150-450); RED BLOOD COUNT 5.22 M/UL (4.20-5.40); WHITE BLOOD COUNT 5.6 K/UL (4.8-10.8)
[2020-02-14 07:23] LABS: ALANINE AMINOTRANSFERASE 14 U/L (12-78); ALBUMIN 2.7 G/DL (3.4-5.0); ALBUMIN/GLOBULIN RATIO 0.8 (1.0-2.7); ALKALINE PHOSPHATASE 113 U/L (46-116); ANION GAP 6 mmol/L (5-15); ASPARTATE AMINO TRANSFERASE 13 U/L (15-37); BILIRUBIN,TOTAL 0.2 MG/DL (0.2-1.0); BLOOD UREA NITROGEN 13 mg/dL (7-18); CALCIUM 8.9 MG/DL (8.5-10.1); CARBON DIOXIDE 29 MMOL/L (21-32); CHLORIDE 105 MMOL/L (98-107); CREATININE 0.6 MG/DL (0.55-1.30); POTASSIUM 3.4 MMOL/L (3.5-5.1); SODIUM 140 MMOL/L (136-145)
[2020-02-14 08:00] VITALS: BP 113/81
--- NOTE | 2020-02-14 11:01 | Pulmonology Progress Note ---
Simona Rios PARKING ENFORCER 02/14/20 1101: Subjective Constitutional: Reports: fatigue, other - FTT per history ; Denies: fever Gastrointestinal/Abdominal: Denies: nausea, vomiting, diarrhea Psychiatric: Reports: other - NA Skin: Denies: rash Musculoskeletal: Denies: pain Allergies: Coded Allergies: ACETAMINOPHEN (Unverified Allergy, Unknown, 02/12/20) CODEINE (Unverified Allergy, Unknown, 02/12/20) LISINOPRIL (Verified Allergy, Unknown, 02/01/20) OXYCODONE (Verified Allergy, Unknown, 02/01/20) Subjective afebrile, no leukocytosis denies CP, SOB. no dysuria UCX + > 100 K GNR labs remains stable BP stabilized declined SNF placement Objective Last 24 Hour Vital Signs Date Time Temp Pulse Resp B/P (MAP) Pulse Ox O2 Delivery O2 Flow Rate FiO2 02/14/20 08:00 98.1 83 20 113/81 (92) 94 02/14/20 04:00 97.7 66 18 143/72 (95) 96 02/14/20 00:00 97.7 73 18 115/63 (80) 97 02/13/20 21:00 Room Air 02/13/20 20:00 97.8 77 18 113/61 (78) 98 02/13/20 16:00 97.7 85 18 102/54 (70) 94 02/13/20 12:00 98.7 74 18 124/67 (86) 95 Intake and Output 02/13/20 02/14/20 19:00 07:00 Intake Total 720 ml 710 ml Output Total 800 ml 400 ml Balance -80 ml 310 ml Intake Oral 720 ml 150 ml IV Total 560 ml Output Urine Total 800 ml 400 ml # Voids 2 3 General Appearance: no acute distress, other - awake, alert, rsponsive bedridden AA female with dysarthric speech HEENT: normocephalic, atraumatic, anicteric, mucous membranes moist, EOMI, supple, no JVD Respiratory: chest wall non-tender, lungs clear, no respiratory distress, no accessory muscle use Cardiovascular: normal peripheral pulses, normal rate, no JVD Abdomen: normal bowel sounds, soft, non tender, non distended Extremities: no edema, pedal pulses normal Skin: other - patches of vitiligo BLE, sacral area DTI POA Neurologic: abnormal gait, alert, responsive, other - dysarthric, R side hemiparesis Musculoskeletal: atrophy - BLE Microbiology Date/Time Source Procedure Growth Status 02/12/20 15:30 Urine,Clean Catch Urine Culture - Preliminary Gram Negative Deo Resulted 02/12/20 14:00 Blood Blood Culture - Preliminary NO GROWTH AFTER 24 HOURS Resulted 02/12/20 13:45 Blood Blood Culture - Preliminary NO GROWTH AFTER 24 HOURS Resulted Laboratory Tests 02/14/20 04:50: White Blood Count 5.6, Red Blood Count 5.22, Hemoglobin 12.7, Hematocrit 40.6, Mean Corpuscular Volume 78L, Mean Corpuscular Hemoglobin 24.4L, Mean Corpuscular Hemoglobin Concent 31.4L, Red Cell Distribution Width 16.0H, Platelet Count 446, Mean Platelet Volume 4.9L, Neutrophils (%) (Auto) 45.1, Lymphocytes (%) (Auto) 36.7, Monocytes (%) (Auto) 9.1, Eosinophils (%) (Auto) 6.2H, Basophils (%) (Auto) 2.9H, Sodium Level 140, Potassium Level 3.4L, Chloride Level 105, Carbon Dioxide Level 29, Anion Gap 6, Blood Urea Nitrogen 13, Creatinine 0.6, Estimat Glomerular Filtration Rate > 60, Glucose Level 89, Calcium Level 8.9, Total Bilirubin 0.2, Aspartate Amino Transf (AST/SGOT) 13L, Alanine Aminotransferase (ALT/SGPT) 14, Alkaline Phosphatase 113, Total Protein 5.9L, Albumin 2.7L, Globulin 3.2, Albumin/Globulin Ratio 0.8L Current Medications Medications (Trade) Dose Ordered Sig/Uriel Route PRN Reason Start Time Stop Time Status Last Admin Dose Admin Barium Sulfate (Varibar Honey) 250 ml NOW PRN RAD 02/12/20 22:00 02/15/20 21:53 Barium Sulfate (Varibar [place]) 240 ml NOW PRN MC RAD 02/12/20 22:00 02/15/20 21:53 Barium Sulfate (Varibar Pudding) 230 ml NOW PRN RAD 02/12/20 22:00 02/15/20 21:53 Barium Sulfate (Varibar Thin Liquid powder) 148 gm NOW PRN MC RAD 02/12/20 22:00 02/15/20 21:53 Ceftriaxone Sodium 1 gm/ Dextrose 55 ml @ 110 mls/hr Q24H IVPB 02/13/20 11:00 02/20/20 10:59 02/13/20 11:58 Clonidine HCl (Catapres Tab) 0.1 mg Q4H PRN ORAL SBP > 160 02/12/20 17:15 05/12/20 17:14 Dextrose/Sodium Chloride 1,000 ml @ 75 mls/hr [id number] IV 02/13/20 23:15 03/14/20 23:14 02/13/20 23:25 Diphenhydramine HCl (Benadryl) 25 mg Q6H PRN ORAL Itching 02/13/20 04:15 03/14/20 04:14 02/14/20 07:05 Docusate Sodium (Colace) 100 mg TWICE A DAY ORAL 02/12/20 18:00 03/13/20 17:59 02/13/20 18:04 Furosemide (Lasix) 40 mg DAILY IV 02/13/20 09:00 03/14/20 08:59 02/13/20 09:44 Gabapentin (Neurontin) 300 mg TID@0200,1000,1800 ORAL 02/13/20 02:00 03/14/20 01:59 02/14/20 01:54 Heparin Sodium (Porcine) (Heparin 5000 units/ml) 5,000 units EVERY 12 HOURS SUBQ 02/12/20 21:00 03/28/20 20:59 02/13/20 21:26 Iohexol (Omnipaque 350 100ml) 100 ml NOW PRN INJ Radiology Procedure 02/13/20 11:15 02/15/20 11:14 Losartan Potassium (Cozaar) 50 mg DAILY ORAL 02/13/20 09:00 03/14/20 08:59 02/13/20 09:43 Nifedipine (Procardia XL) 30 mg DAILY ORAL 02/13/20 09:00 03/14/20 08:59 02/13/20 09:43 Polyethylene Glycol (Miralax) 17 gm BEDTIME ORAL 02/12/20 21:00 03/13/20 20:59 02/13/20 21:25 Assessment/Plan Assessment/Plan ASSESSMENT/PROBLEM LIST: * FTT * Recurrent UTI with hx of recent UTI * Nephrolithiasis * 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 No acute thoracic vascular pathology Noted Markedly dilated gas and fluid-filled esophagus. Most likely secondary to distal dysmotility, but given the degree of distention the possibility of the downstream obstructive lesion should also be considered. * GI eval * Ucx+ GNR, on empiric Ceftriaxone, ID eval appreciated * BP control, continue Nifedipine, add Lisinopril 5 + PRN Clonidine, BP stabilized with current regimen * second troponin negative as well, TTE with pEF * TSH wnl * cardio eval appreciated * Venous Duplex BLE-NGT; D-dimer -2.3 * Monitor volumes and renal function * Aspiration precautions , BSSE pend * MRI brain no acute IC pathology * DVT Px: Hep SQ * PT eval and Rx * bowel regimen * wound care as per jennyfer dempsey, * FC * Dispo planning to SNF: [facility] subacute or Rehab patient declined SNF placement, * clearly unable to care for herself, * caregiver assistant department manager only ; will speak with family case discussed and evaluated by supervising physician Contreras Olivas MD 02/14/20 1127: Subjective Allergies: Coded Allergies: ACETAMINOPHEN (Unverified Allergy, Unknown, 02/12/20) CODEINE (Unverified Allergy, Unknown, 02/12/20) LISINOPRIL (Verified Allergy, Unknown, 02/01/20) OXYCODONE (Verified Allergy, Unknown, 02/01/20) Assessment/Plan Assessment/Plan Patient seen and examined with PARKING ENFORCER. Agree with above A&P as it reflects our joint deliberations. L shoulder effusion on CT-A, CXR pending Will need ortho eval Knee Xray pending Esoph dilation noted on CT-A also, GI eval pending D/W daughter, needs 24 h care at home, patient declining SNF Ongoing discussions Re: plan and GOC Simona Rios NP Feb 14, 2020 11:01 Contreras Olivas MD Feb 14, 2020 11:27
--- NOTE | 2020-02-14 11:02 | Cardiac Electrophysiology PN ---
Assessment/Plan Assessment/Plan 1. Accelerated hypertension. On Procardia XL 30 mg daily, Cozaar 50 mg daily and Lasix 40 iv daily. On p.r.n. clonidine 0.1 mg every 4 hours p.r.n. EF 65%. 2. Status post right basal ganglia CVA. 3. History of laparotomy. 4. Failure to thrive. 5. Recent UTI 6. SOB and high D Dimer. Chest CT angio No PE. EF 65% DW RN Subjective Subjective Chest CT angio showed no PE. Now eating. EF 65% Objective Last 24 Hour Vital Signs Date Time Temp Pulse Resp B/P (MAP) Pulse Ox O2 Delivery O2 Flow Rate FiO2 02/14/20 08:00 98.1 83 20 113/81 (92) 94 02/14/20 04:00 97.7 66 18 143/72 (95) 96 02/14/20 00:00 97.7 73 18 115/63 (80) 97 02/13/20 21:00 Room Air 02/13/20 20:00 97.8 77 18 113/61 (78) 98 02/13/20 16:00 97.7 85 18 102/54 (70) 94 02/13/20 12:00 98.7 74 18 124/67 (86) 95 Intake and Output 02/13/20 02/14/20 19:00 07:00 Intake Total 720 ml 710 ml Output Total 800 ml 400 ml Balance -80 ml 310 ml Intake Oral 720 ml 150 ml IV Total 560 ml Output Urine Total 800 ml 400 ml # Voids 2 3 Laboratory Tests Test 02/14/20 04:50 White Blood Count 5.6 K/UL (4.8-10.8) Red Blood Count 5.22 M/UL (4.20-5.40) Hemoglobin 12.7 G/DL (12.0-16.0) Hematocrit 40.6 % (37.0-47.0) Mean Corpuscular Volume 78 FL (80-99) L Mean Corpuscular Hemoglobin 24.4 PG (27.0-31.0) L Mean Corpuscular Hemoglobin Concent 31.4 G/DL (32.0-36.0) L Red Cell Distribution Width 16.0 % (11.6-14.8) H Platelet Count 446 K/UL (150-450) Mean Platelet Volume 4.9 FL (6.5-10.1) L Neutrophils (%) (Auto) 45.1 % (45.0-75.0) Lymphocytes (%) (Auto) 36.7 % (20.0-45.0) Monocytes (%) (Auto) 9.1 % (1.0-10.0) Eosinophils (%) (Auto) 6.2 % (0.0-3.0) H Basophils (%) (Auto) 2.9 % (0.0-2.0) H Sodium Level 140 MMOL/L (136-145) Potassium Level 3.4 MMOL/L (3.5-5.1) L Chloride Level 105 MMOL/L (98-107) Carbon Dioxide Level 29 MMOL/L (21-32) Anion Gap 6 mmol/L (5-15) Blood Urea Nitrogen 13 mg/dL (7-18) Creatinine 0.6 MG/DL (0.55-1.30) Estimat Glomerular Filtration Rate > 60 mL/min (>60) Glucose Level 89 MG/DL (74-106) Calcium Level 8.9 MG/DL (8.5-10.1) Total Bilirubin 0.2 MG/DL (0.2-1.0) Aspartate Amino Transf (AST/SGOT) 13 U/L (15-37) L Alanine Aminotransferase (ALT/SGPT) 14 U/L (12-78) Alkaline Phosphatase 113 U/L (46-116) Total Protein 5.9 G/DL (6.4-8.2) L Albumin 2.7 G/DL (3.4-5.0) L Globulin 3.2 g/dL Albumin/Globulin Ratio 0.8 (1.0-2.7) L Microbiology Date/Time Source Procedure Growth Status 02/12/20 15:30 Urine,Clean Catch Urine Culture - Preliminary Gram Negative Deo Resulted 02/12/20 14:00 Blood Blood Culture - Preliminary NO GROWTH AFTER 24 HOURS Resulted 02/12/20 13:45 Blood Blood Culture - Preliminary NO GROWTH AFTER 24 HOURS Resulted Objective HEAD AND NECK: No JVD. LUNGS: Decreased breath sounds. CARDIOVASCULAR: Regular S1 and S2 with no gallop or murmur. ABDOMEN: Soft. EXTREMITIES: 2+ pitting edema. Chato Oliveira MD Feb 14, 2020 11:02
[2020-02-14] MEDS: Docusate 100mg cap ORAL SCH ×2 (11:44→19:14)
[2020-02-14] MEDS: Losartan 50mg tab ORAL SCH (11:46)
[2020-02-14] MEDS: Heparin 5000 units/ml inj SUBQ SCH ×2 (11:48→21:22)
[2020-02-14] MEDS: cefTRIAXone 1 GM in D5W 55 ML IVPB SCH (11:49)
[2020-02-14 12:00] VITALS: BP 154/85
--- NOTE | 2020-02-14 13:46 | Surgery Progress Note ---
Surgery Progress Note Subjective Additional Comments CT reviewed comfortable no complaints labs stable brain MRI Objective Last 24 Hour Vital Signs Date Time Temp Pulse Resp B/P (MAP) Pulse Ox O2 Delivery O2 Flow Rate FiO2 02/14/20 12:00 97.7 78 18 154/85 (108) 94 02/14/20 11:46 154/75 02/14/20 11:46 78 154/75 02/14/20 08:00 98.1 83 20 113/81 (92) 94 02/14/20 04:00 97.7 66 18 143/72 (95) 96 02/14/20 00:00 97.7 73 18 115/63 (80) 97 02/13/20 21:00 Room Air 02/13/20 20:00 97.8 77 18 113/61 (78) 98 02/13/20 16:00 97.7 85 18 102/54 (70) 94 I&O Intake and Output 02/13/20 02/14/20 19:00 07:00 Intake Total 720 ml 710 ml Output Total 800 ml 400 ml Balance -80 ml 310 ml Intake Oral 720 ml 150 ml IV Total 560 ml Output Urine Total 800 ml 400 ml # Voids 2 3 Dressing: other Wound: other Cardiovascular: RSR Respiratory: decreased breath sounds Abdomen: soft, non-tender, present bowel sounds Extremities: no edema, no tenderness, no cyanosis Laboratory Tests Test 02/14/20 04:50 White Blood Count 5.6 K/UL (4.8-10.8) Red Blood Count 5.22 M/UL (4.20-5.40) Hemoglobin 12.7 G/DL (12.0-16.0) Hematocrit 40.6 % (37.0-47.0) Mean Corpuscular Volume 78 FL (80-99) L Mean Corpuscular Hemoglobin 24.4 PG (27.0-31.0) L Mean Corpuscular Hemoglobin Concent 31.4 G/DL (32.0-36.0) L Red Cell Distribution Width 16.0 % (11.6-14.8) H Platelet Count 446 K/UL (150-450) Mean Platelet Volume 4.9 FL (6.5-10.1) L Neutrophils (%) (Auto) 45.1 % (45.0-75.0) Lymphocytes (%) (Auto) 36.7 % (20.0-45.0) Monocytes (%) (Auto) 9.1 % (1.0-10.0) Eosinophils (%) (Auto) 6.2 % (0.0-3.0) H Basophils (%) (Auto) 2.9 % (0.0-2.0) H Sodium Level 140 MMOL/L (136-145) Potassium Level 3.4 MMOL/L (3.5-5.1) L Chloride Level 105 MMOL/L (98-107) Carbon Dioxide Level 29 MMOL/L (21-32) Anion Gap 6 mmol/L (5-15) Blood Urea Nitrogen 13 mg/dL (7-18) Creatinine 0.6 MG/DL (0.55-1.30) Estimat Glomerular Filtration Rate > 60 mL/min (>60) Glucose Level 89 MG/DL (74-106) Calcium Level 8.9 MG/DL (8.5-10.1) Total Bilirubin 0.2 MG/DL (0.2-1.0) Aspartate Amino Transf (AST/SGOT) 13 U/L (15-37) L Alanine Aminotransferase (ALT/SGPT) 14 U/L (12-78) Alkaline Phosphatase 113 U/L (46-116) Total Protein 5.9 G/DL (6.4-8.2) L Albumin 2.7 G/DL (3.4-5.0) L Globulin 3.2 g/dL Albumin/Globulin Ratio 0.8 (1.0-2.7) L Plan Problems: (1) Decubitus skin ulcer Assessment & Plan: Pt presented on admission with Full thickness Pressure Injury Sacrum/R Buttocks. Base of wound is moist,lindsey with scattered areas of Slough, and Biofilm, Borders are irregular. Small amt serosanguineous exudate.(L)7cm x (W)7.5cm x(D)0.2cm. Surrounding non-blanchable erythema with additional shearing periwound. Unstageable Pressure Injury Maria D Cleft of Buttocks(L)2.5cm x (W)0.9cm. Base of Pressure Injury is 95% slough,5% lindsey with surrounding non-blanching erythema. Scattered epithelial and hyperpigmentation noted to L buttocks. R lower extremity internally rotated. Xerosis skin Bilat lower ext. An area of hyperpigmentation noted to R tibia. Both heels are non-blanchable but wihtou fluctuance. Pt complained both heels are tender to minimal touch. Tx.Plan: Cleanse wounds Buttocks with Saline. Apply Therahoney . Apply Moisture Barrier Paste Periwound. Cover with Optifoam drsg. Change every 3 days and prn. Moisturize Both lower ext with Phytoplex Lotion. Apply Cavilon Skin Barrier to both heels and Malleoli. Cover each site with Optifoam drsg. Change every 7 days and prn. Reposition at least every 2hours or as tolerated. Off-load heels with Pillow. Pulmonary arteries are well-opacified. No definite intraluminal filling defects or other findings to suggest pulmonary emboli are demonstrated. Normal caliber pulmonary arteries. No evidence of thoracic aortic aneurysm or dissection. No evidence of right ventricular dilatation. The lungs demonstrate a slight mosaic perfusion pattern. There is elevation of the right hemidiaphragm. This results in atelectatic changes of the base of the right lower lobe. There is also some crowding of the bronchovascular markings in the left lower lobe. No definite infiltrates, effusions, masses, or nodules are demonstrated. The esophagus is markedly dilated gas-filled proximally, fluid-filled distally. The dilatation appears to extend to the distal esophagus. The heart is borderline enlarged. No pericardial effusion demonstrated. No mediastinal or hilar mass or adenopathy. The thyroid demonstrates a 19 mm low-attenuation lesion in the lower pole of the left lobe. No axillary or chest wall mass or adenopathy. There appears to be a very large joint effusion surrounding the left humeral head. There are chronic appearing erosive changes of the limit and to a lesser extent the humeral head. No axillary or chest wall mass or adenopathy. There is degenerative spondylosis noted. The included upper abdominal anatomy is unremarkable. Impression: No evidence of acute pulmonary embolus or other acute thoracic vascular pathology Elevated right hemidiaphragm. Resultant basilar atelectatic changes. No definite infiltrates Borderline cardiomegaly Slight mosaic pulmonary perfusion pattern. There is a broad differential, but possibly on the basis of very mild pulmonary edema Markedly dilated gas and fluid-filled esophagus. Most likely secondary to distal dysmotility, but given the degree of distention the possibility of the downstream obstructive lesion should also be considered. Large left humeral head joint effusion. Fairly extensive chronic appearing erosive changes of the glenoid could be due to degenerative changes, but given the large effusion the possibility of septic arthropathy should also be considered. Correlate with clinical findings and history. Findings discussed by phone with Dr. Olivas at the time of interpretation (2) Nephrolithiasis (3) UTI (urinary tract infection) (4) FTT (failure to thrive) in adult Assessment & Plan: DAILY ESTIMATED NEEDS: Needs based on Wound, obese, cardiac 63.6abw 25-30 kcals/kg 5030-1340 total kcals 1.25-1.5 g protein/kg 80-95 g total protein Fluid per MD, on lasix NUTRITION DIAGNOSIS: Decreased sodium needs r/t h/o CVA as evidenced by pt w/ HTN, elev BP on adm, now on lasix. CURRENT DIET: Regular diet, ms finely chopped PO DIET RECOMMENDATIONS: LOW NA DIET (texture per NDT INSPECTOR) ADDITIONAL RECOMMENDATIONS: 1) Maintain calibrated bed scale wts 2) Monitor for continued good po intake 3) F/up w/ WC eval 4) Monitor lytes daily on lasix 5) F/up w/ PO intake, need for snacks, supplements Aaron Thomas Feb 14, 2020 13:46
[2020-02-14] MEDS: D5 1/2NS 1,000 ML IV SCH (14:10)
[2020-02-14] MEDS ORDERED: NIFEDIPINE ER90 M2 ORAL (15:14)
[2020-02-14] MEDS ORDERED: IBUPROFEN800 MG ORAL (15:15)
--- NOTE | 2020-02-14 15:54 | Diagnostic Imaging Report ---
EXAM: X-RAY XRAY Shoulder Compl L CLINICAL HISTORY: Shoulder pain.. COMPARISON: None FINDINGS: Total of 3 views of the left shoulder were obtained. Severe degenerative changes of the glenohumeral joint noted. There is deformity of the humeral head and remodeling of the bony glenoid. Mild degenerative changes of the AC joint also noted. No acute fractures seen. Surrounding soft tissue is normal. IMPRESSION: SEVERE DEGENERATIVE CHANGES. NO ACUTE BONY ABNORMALITY.
[2020-02-14 16:00] VITALS: BP 134/99
[2020-02-14 20:00] VITALS: BP 138/73
[2020-02-14] MEDS: Miralax 17gm pkt ORAL SCH (21:21)
--- NOTE | 2020-02-14 21:59 | General Progress Note ---
Subjective Allergies: Coded Allergies: ACETAMINOPHEN (Unverified Allergy, Unknown, 02/12/20) CODEINE (Unverified Allergy, Unknown, 02/12/20) LISINOPRIL (Verified Allergy, Unknown, 02/01/20) OXYCODONE (Verified Allergy, Unknown, 02/01/20) Objective Last 24 Hour Vital Signs Date Time Temp Pulse Resp B/P (MAP) Pulse Ox O2 Delivery O2 Flow Rate FiO2 02/14/20 16:00 97.5 95 20 134/99 (111) 94 02/14/20 12:00 97.7 78 18 154/85 (108) 94 02/14/20 11:46 154/75 02/14/20 11:46 78 154/75 02/14/20 09:00 Room Air 02/14/20 09:00 Room Air 02/14/20 08:00 98.1 83 20 113/81 (92) 94 02/14/20 04:00 97.7 66 18 143/72 (95) 96 02/14/20 00:00 97.7 73 18 115/63 (80) 97 Intake and Output 02/13/20 02/14/20 19:00 07:00 Intake Total 720 ml 710 ml Output Total 800 ml 400 ml Balance -80 ml 310 ml Intake Oral 720 ml 150 ml IV Total 560 ml Output Urine Total 800 ml 400 ml # Voids 2 3 Laboratory Tests 02/14/20 04:50: White Blood Count 5.6, Red Blood Count 5.22, Hemoglobin 12.7, Hematocrit 40.6, Mean Corpuscular Volume 78L, Mean Corpuscular Hemoglobin 24.4L, Mean Corpuscular Hemoglobin Concent 31.4L, Red Cell Distribution Width 16.0H, Platelet Count 446, Mean Platelet Volume 4.9L, Neutrophils (%) (Auto) 45.1, Lymphocytes (%) (Auto) 36.7, Monocytes (%) (Auto) 9.1, Eosinophils (%) (Auto) 6.2H, Basophils (%) (Auto) 2.9H, Sodium Level 140, Potassium Level 3.4L, Chloride Level 105, Carbon Dioxide Level 29, Anion Gap 6, Blood Urea Nitrogen 13, Creatinine 0.6, Estimat Glomerular Filtration Rate > 60, Glucose Level 89, Calcium Level 8.9, Total Bilirubin 0.2, Aspartate Amino Transf (AST/SGOT) 13L, Alanine Aminotransferase (ALT/SGPT) 14, Alkaline Phosphatase 113, Total Protein 5.9L, Albumin 2.7L, Globulin 3.2, Albumin/Globulin Ratio 0.8L Height (Feet): 5 Height (Inches): 5.00 Weight (Pounds): 180 Assessment/Plan Assessment/Plan: Assessment - (L) CVA with resultant dysarthria (difficult to understand pt) - markedly dilated esophagus on CT - long standing h/o esophageal stricture, per pt - patient declines EGD - understands indications - HTN - urolithiasis Recommendations - check Esophogram in am to better evaluate esophageal anatomy - no EGD planned per pt refusal - will discuss with next of kin - PPI - mechanical soft diet Cristobal Vaughan MD Feb 14, 2020 21:59
--- NOTE | 2020-02-14 23:15 | Consultation ---
DATE OF CONSULTATION: 02/14/2020 GASTROLOGY CONSULTATION CHIEF COMPLAINT: I was asked to see this patient by Dr. Contreras Olivas for evaluation of abnormal esophagus. HISTORY OF PRESENT ILLNESS: The patient is an 84-year-old woman with a history of left hemispheric stroke and right-sided hemiparesis and dysarthria, who comes into the hospital due to failure to thrive and weakness. The patient had a CT scan of the chest, abdomen, and pelvis, which showed a markedly dilated esophagus. The patient denies any nausea, vomiting, and has been tolerating feeding without problems. She states she has had an esophageal stricture for many years. She has a significant degree of dysarthria and, therefore, it is hard to understand some of the things she said, but she clearly states that the esophageal abnormality is chronic and she has no abnormality swallowing and she is denying to be scheduled for endoscopy. She declined it saying that she has not vomited and she does not want an evaluation. The patient has been on a solid diet orally. She also has a history of abdominal surgery with unclear details. The patient does have a history of macrocytic anemia on laboratory evaluation. PAST MEDICAL HISTORY: History of hypertension, history of extensive left hemispheric stroke with right-sided hemiparesis and dysarthria, . PAST SURGICAL HISTORY: Status laparotomy, status endoscopies. FAMILY HISTORY: Noncontributory. SOCIAL HISTORY: The patient lives in her home and has a supportive family. She is . REVIEW OF SYSTEMS: Otherwise negative. PHYSICAL EXAMINATION: GENERAL: An elderly woman, seen in the room, with the nurse at bedside. HEENT: Normocephalic, atraumatic. NECK: Supple. CHEST: Clear to auscultation. CARDIAC: Regular rate. ABDOMEN: Soft without tenderness. EXTREMITIES: No edema. NEUROLOGIC: Notable for right-sided hemiparesis. The patient is alert, oriented, to place, year, and President. ASSESSMENT: This patient has a markedly dilated esophagus on CT scan, but she has been tolerating her oral diet without any nausea, vomiting; and therefore, the changes are chronic. It is unclear whether this is a dysmotility problem as suggested by the CT scan or a stricture as suggested by the patient. She does not want any endoscopic intervention at this time since she has no nausea or vomiting, but an esophagram can be ordered for tomorrow to better define the anatomy of the esophagus, especially the distal esophagus. I will also discuss the matter with the patient's family. The patient also has some degree of microcytic changes on her CBC; and therefore, iron panel should be checked. Further recommendations will be based on the findings of the above studies. Thank you for asking me to participate in the care of this patient. Cristobal Vaughan M.D. DR: KARL JOB#: [id number] CC:
[2020-02-15] VITALS: BP 121/86
[2020-02-15] MEDS: D5 1/2NS 1,000 ML IV SCH ×2 (01:49→15:10)
[2020-02-15 04:00] VITALS: BP 113/64
[2020-02-15 06:41] LABS: BASOPHILS % (AUTO) 2.3 % (0.0-2.0); EOSINOPHILS % (AUTO) 5.9 % (0.0-3.0); HEMATOCRIT 40.8 % (37.0-47.0); HEMOGLOBIN 12.6 G/DL (12.0-16.0); LYMPHOCYTES % (AUTO) 33.6 % (20.0-45.0); MEAN CORPUSCULAR VOLUME 78 FL (80-99); MONOCYTES % (AUTO) 8.8 % (1.0-10.0); NEUTROPHILS % (AUTO) 49.4 % (45.0-75.0); PLATELET COUNT 278 K/UL (150-450); RED BLOOD COUNT 5.25 M/UL (4.20-5.40); WHITE BLOOD COUNT 5.6 K/UL (4.8-10.8)
[2020-02-15 07:00] LABS: ALANINE AMINOTRANSFERASE 12 U/L (12-78); ALBUMIN 2.7 G/DL (3.4-5.0); ALBUMIN/GLOBULIN RATIO 0.9 (1.0-2.7); ALKALINE PHOSPHATASE 106 U/L (46-116); ANION GAP 6 mmol/L (5-15); ASPARTATE AMINO TRANSFERASE 11 U/L (15-37); BILIRUBIN,TOTAL 0.2 MG/DL (0.2-1.0); BLOOD UREA NITROGEN 9 mg/dL (7-18); CALCIUM 8.6 MG/DL (8.5-10.1); CARBON DIOXIDE 27 MMOL/L (21-32); CHLORIDE 107 MMOL/L (98-107); CREATININE 0.6 MG/DL (0.55-1.30); POTASSIUM 4.1 MMOL/L (3.5-5.1); SODIUM 140 MMOL/L (136-145)
[2020-02-15 07:08] LABS: % IRON SATURATION 18 % (15-50); IRON 41 ug/dL (50-175); TOTAL IRON BINDING CAPACITY 228 ug/dL (250-450)
[2020-02-15 08:00] VITALS: BP 159/69
[2020-02-15] MEDS: Losartan 50mg tab ORAL SCH (09:11)
[2020-02-15] MEDS: Docusate 100mg cap ORAL SCH ×2 (09:12→17:32)
[2020-02-15] MEDS: Furosemide 40mg tab ORAL SCH (09:12)
[2020-02-15] MEDS: Heparin 5000 units/ml inj SUBQ SCH ×2 (09:15→21:02)
--- NOTE | 2020-02-15 09:40 | Cardiology Report ---
APPROVED REPORT EXAM: Two-dimensional and M-mode echocardiogram with Doppler and color Doppler. INDICATION Shortness of breath M-Mode DIMENSIONS IVSd0.7 (0.7-1.1cm)Left Atrium (MM)2.7 (1.6-4.0cm) LVDd3.9 (3.5-5.6cm)Aortic Root2.5 (2.0-3.7cm) PWd0.7 (0.7-1.1cm)Aortic Cusp Exc.1.7 (1.5-2.0cm) IVSs1.0 cmEPSS0.3 (>1.0cm) LVDs2.5 (2.5-4.0cm) PWs1.3 cm <Conclusion> Technically difficult and limited study due to poor acoustic windows. Study quality precludes accurate assessment of regional wall motion. Normal left ventricular chamber size, systolic function and wall motion. Left ventricular ejection fraction estimated to be 65 %. No evidence of left ventricular hypertrophy. No evidence of pericardial effusion. All other cardiac chamber sizes are within normal limits. Focal aortic valve sclerosis with adequate cusp excursion. Mildly thickened mitral valve leaflets with normal excursion. Mitral annulus and aortic root calcification. Pulmonic valve not visualized. Normal tricuspid valve structure. IVC is normal in size with physiological collapse. A color flow and spectral Doppler study was performed and revealed: No aortic regurgitation. Trace mitral regurgitation. Mitral diastolic velocities suggest mild left ventricular diastolic dysfunction (Grade I). No tricuspid regurgitation.
--- NOTE | 2020-02-15 09:42 | Pulmonology Progress Note ---
Simona Rios HEEL LIFT GOUGER 02/15/20 0943: Subjective ROS Limited/Unobtainable: Yes Constitutional: Reports: fatigue, other - FTT per history ; Denies: fever Gastrointestinal/Abdominal: Denies: nausea, vomiting, diarrhea Psychiatric: Reports: other - depressed Skin: Denies: rash Musculoskeletal: Denies: pain Allergies: Coded Allergies: ACETAMINOPHEN (Unverified Allergy, Unknown, 02/12/20) CODEINE (Unverified Allergy, Unknown, 02/12/20) LISINOPRIL (Verified Allergy, Unknown, 02/01/20) OXYCODONE (Verified Allergy, Unknown, 02/01/20) Subjective afebrile, no leukocytosis denies CP, SOB. no dysuria UCX + Proteus labs remains stable BP stabilized declined SNF placement Objective Last 24 Hour Vital Signs Date Time Temp Pulse Resp B/P (MAP) Pulse Ox O2 Delivery O2 Flow Rate FiO2 02/15/20 09:12 96 159/69 02/15/20 09:11 159/69 02/15/20 04:00 98.3 69 14 113/64 (80) 95 02/15/20 00:00 97.9 84 15 121/86 (98) 96 02/14/20 21:00 Room Air 02/14/20 20:00 98.3 75 19 138/73 (94) 96 02/14/20 16:00 97.5 95 20 134/99 (111) 94 02/14/20 12:00 97.7 78 18 154/85 (108) 94 02/14/20 11:46 154/75 02/14/20 11:46 78 154/75 Intake and Output 02/14/20 02/15/20 19:00 07:00 Intake Total 1217.5 ml 1000 ml Output Total 500 ml Balance 1217.5 ml 500 ml Intake Oral 300 ml 550 ml IV Total 917.5 ml 450 ml Output Urine Total 500 ml # Voids 2 # Bowel Movements 1 General Appearance: no acute distress, other - awake, alert, rsponsive bedridden AA female with dysarthric speech HEENT: normocephalic, atraumatic, anicteric, mucous membranes moist, EOMI, supple, no JVD Respiratory: chest wall non-tender, lungs clear, no respiratory distress, no accessory muscle use Cardiovascular: normal peripheral pulses, normal rate, no JVD Abdomen: normal bowel sounds, soft, non tender, non distended Extremities: no edema, pedal pulses normal Skin: other - patches of vitiligo BLE, sacral area DTI POA Neurologic: abnormal gait, alert, responsive, other - dysarthric, R side hemiparesis Musculoskeletal: atrophy - BLE Microbiology Date/Time Source Procedure Growth Status 02/12/20 15:30 Urine,Clean Catch Urine Culture - Preliminary Proteus Mirabilis Resulted 02/12/20 14:00 Blood Blood Culture - Preliminary NO GROWTH AFTER 48 HOURS Resulted 02/12/20 13:45 Blood Blood Culture - Preliminary NO GROWTH AFTER 48 HOURS Resulted Laboratory Tests 02/15/20 04:45: White Blood Count 5.6, Red Blood Count 5.25, Hemoglobin 12.6, Hematocrit 40.8, Mean Corpuscular Volume 78L, Mean Corpuscular Hemoglobin 24.1L, Mean Corpuscular Hemoglobin Concent 31.0L, Red Cell Distribution Width 16.0H, Platelet Count 278, Mean Platelet Volume 5.0L, Neutrophils (%) (Auto) 49.4, Lymphocytes (%) (Auto) 33.6, Monocytes (%) (Auto) 8.8, Eosinophils (%) (Auto) 5.9H, Basophils (%) (Auto) 2.3H, Sodium Level 140, Potassium Level 4.1, Chloride Level 107, Carbon Dioxide Level 27, Anion Gap 6, Blood Urea Nitrogen 9, Creatinine 0.6, Estimat Glomerular Filtration Rate > 60, Glucose Level 119H, Calcium Level 8.6, Iron Level 41L, Total Iron Binding Capacity 228L, Percent Iron Saturation 18, Unsaturated Iron Binding 187, Total Bilirubin 0.2, Aspartate Amino Transf (AST/SGOT) 11L, Alanine Aminotransferase (ALT/SGPT) 12, Alkaline Phosphatase 106, Total Protein 5.8L, Albumin 2.7L, Globulin 3.1, Albumin/Globulin Ratio 0.9L Current Medications Medications (Trade) Dose Ordered Sig/Uriel Route PRN Reason Start Time Stop Time Status Last Admin Dose Admin Barium Sulfate (Varibar Honey) 250 ml NOW PRN MC RAD 02/12/20 22:00 02/15/20 21:53 Barium Sulfate (Varibar [place]) 240 ml NOW PRN MC RAD 02/12/20 22:00 02/15/20 21:53 Barium Sulfate (Varibar Pudding) 230 ml NOW PRN MC RAD 02/12/20 22:00 02/15/20 21:53 Barium Sulfate (Varibar Thin Liquid powder) 148 gm NOW PRN RAD 02/12/20 22:00 02/15/20 21:53 Ceftriaxone Sodium 1 gm/ Dextrose 55 ml @ 110 mls/hr Q24H IVPB 02/13/20 11:00 02/20/20 10:59 02/14/20 11:49 Clonidine HCl (Catapres Tab) 0.1 mg Q4H PRN ORAL SBP > 160 02/12/20 17:15 05/12/20 17:14 Dextrose/Sodium Chloride 1,000 ml @ 75 mls/hr [id number] IV 02/13/20 23:15 03/14/20 23:14 02/15/20 01:49 Diphenhydramine HCl (Benadryl) 25 mg Q6H PRN ORAL Itching 02/13/20 04:15 03/14/20 04:14 02/15/20 09:12 Docusate Sodium (Colace) 100 mg TWICE A DAY ORAL 02/12/20 18:00 03/13/20 17:59 02/15/20 09:12 Furosemide (Lasix) 40 mg DAILY ORAL 02/15/20 09:00 03/16/20 08:59 02/15/20 09:12 Gabapentin (Neurontin) 300 mg TID@0200,1000,1800 ORAL 02/13/20 02:00 03/14/20 01:59 02/15/20 09:11 Heparin Sodium (Porcine) (Heparin 5000 units/ml) 5,000 units EVERY 12 HOURS SUBQ 02/12/20 21:00 03/28/20 20:59 02/15/20 09:15 Iohexol (Omnipaque 350 100ml) 100 ml NOW PRN INJ Radiology Procedure 02/13/20 11:15 02/15/20 11:14 Losartan Potassium (Cozaar) 50 mg DAILY ORAL 02/13/20 09:00 03/14/20 08:59 02/15/20 09:11 Nifedipine (Procardia XL) 30 mg DAILY ORAL 02/13/20 09:00 03/14/20 08:59 02/15/20 09:12 Pantoprazole (Protonix) 40 mg DAILY ORAL 02/15/20 09:00 03/16/20 08:59 02/15/20 09:11 Polyethylene Glycol (Miralax) 17 gm BEDTIME ORAL 02/12/20 21:00 03/13/20 20:59 02/14/20 21:21 Assessment/Plan Assessment/Plan ASSESSMENT/PROBLEM LIST: * FTT * Recurrent UTI with hx of recent UTI * Nephrolithiasis * 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 No acute thoracic vascular pathology Noted Markedly dilated gas and fluid-filled esophagus. Most likely secondary to distal dysmotility, but given the degree of distention the possibility of the downstream obstructive lesion should also be considered. * GI eval appreciated, pt declined EGD, per GI will get esophagram * Ucx+ Proteus , on Ceftriaxone, ID eval appreciated * BP control, continue Nifedipine, add Lisinopril , Lasix + PRN Clonidine, BP stabilized with current regimen * second troponin negative as well, TTE with pEF * TSH wnl * cardio eval appreciated * Venous Duplex BLE-NGT; D-dimer -2.3 * Monitor volumes and renal function, repalce lytes a sneeded * Aspiration precautions , BSSE pending * MRI brain no acute IC pathology * CTA also revealed L shoulder effusion on CT-A, , X ray shoulder 3 views-> with severe degenerative changes, no acute bony abnormalities * need ortho eval * DVT Px: Hep SQ * PT eval and Rx * bowel regimen * wound care as per sugery recs, * FC * Dispo planning to SNF: [facility] patient declined SNF placement, * clearly unable to care for herself, * caregiver registered nurse post partum only ; will speak with family * supervising physician D/W daughter, pt needs 24 h care at home, patient declining SNF; ongoing discussions Re: plan and GOC * psych eval pending re pt competence to make decision case discussed and evaluated by supervising physician Contreras Olivas MD 02/15/20 1425: Subjective Allergies: Coded Allergies: ACETAMINOPHEN (Unverified Allergy, Unknown, 02/12/20) CODEINE (Unverified Allergy, Unknown, 02/12/20) LISINOPRIL (Verified Allergy, Unknown, 02/01/20) OXYCODONE (Verified Allergy, Unknown, 02/01/20) Assessment/Plan Assessment/Plan Patient seen and examined with HEEL LIFT GOUGER. Agree with A&P as it reflects our joint deliberations. Shoulder XR with severe DJD - ortho eval pending GI eval noted - F/U BE Ongoing issues with placement, d/w CM will need to set up a family mtg and determine home safety Simona Rios NP Feb 15, 2020 09:43 Contreras Olivas MD Feb 15, 2020 14:25
[2020-02-15] MEDS: cefTRIAXone 1 GM in D5W 55 ML IVPB SCH (11:31)
[2020-02-15 12:00] VITALS: BP 145/81
--- NOTE | 2020-02-15 13:03 | Cardiac Electrophysiology PN ---
Assessment/Plan Assessment/Plan 1. Accelerated hypertension. On Procardia XL 30 mg daily, Cozaar 50 mg daily and Lasix 40 iv daily. On p.r.n. clonidine 0.1 mg every 4 hours p.r.n. EF 65%. 2. Status post right basal ganglia CVA. 3. History of laparotomy. 4. Failure to thrive. 5. Recent UTI 6. SOB and high D Dimer. Chest CT angio No PE. EF 65% DW RN Subjective Subjective Chest CT angio showed no PE. Now eating. EF 65%. Placement pending but she wants to go home Objective Last 24 Hour Vital Signs Date Time Temp Pulse Resp B/P (MAP) Pulse Ox O2 Delivery O2 Flow Rate FiO2 02/15/20 09:12 96 159/69 02/15/20 09:11 159/69 02/15/20 09:00 Room Air 02/15/20 08:00 97.3 86 20 159/69 (99) 96 02/15/20 04:00 98.3 69 14 113/64 (80) 95 02/15/20 00:00 97.9 84 15 121/86 (98) 96 02/14/20 21:00 Room Air 02/14/20 20:00 98.3 75 19 138/73 (94) 96 02/14/20 16:00 97.5 95 20 134/99 (111) 94 Intake and Output 02/14/20 02/15/20 19:00 07:00 Intake Total 1217.5 ml 1000 ml Output Total 500 ml Balance 1217.5 ml 500 ml Intake Oral 300 ml 550 ml IV Total 917.5 ml 450 ml Output Urine Total 500 ml # Voids 2 # Bowel Movements 1 Laboratory Tests Test 02/15/20 04:45 White Blood Count 5.6 K/UL (4.8-10.8) Red Blood Count 5.25 M/UL (4.20-5.40) Hemoglobin 12.6 G/DL (12.0-16.0) Hematocrit 40.8 % (37.0-47.0) Mean Corpuscular Volume 78 FL (80-99) L Mean Corpuscular Hemoglobin 24.1 PG (27.0-31.0) L Mean Corpuscular Hemoglobin Concent 31.0 G/DL (32.0-36.0) L Red Cell Distribution Width 16.0 % (11.6-14.8) H Platelet Count 278 K/UL (150-450) Mean Platelet Volume 5.0 FL (6.5-10.1) L Neutrophils (%) (Auto) 49.4 % (45.0-75.0) Lymphocytes (%) (Auto) 33.6 % (20.0-45.0) Monocytes (%) (Auto) 8.8 % (1.0-10.0) Eosinophils (%) (Auto) 5.9 % (0.0-3.0) H Basophils (%) (Auto) 2.3 % (0.0-2.0) H Sodium Level 140 MMOL/L (136-145) Potassium Level 4.1 MMOL/L (3.5-5.1) Chloride Level 107 MMOL/L (98-107) Carbon Dioxide Level 27 MMOL/L (21-32) Anion Gap 6 mmol/L (5-15) Blood Urea Nitrogen 9 mg/dL (7-18) Creatinine 0.6 MG/DL (0.55-1.30) Estimat Glomerular Filtration Rate > 60 mL/min (>60) Glucose Level 119 MG/DL (74-106) H Calcium Level 8.6 MG/DL (8.5-10.1) Iron Level 41 ug/dL (50-175) L Total Iron Binding Capacity 228 ug/dL (250-450) L Percent Iron Saturation 18 % (15-50) Unsaturated Iron Binding 187 ug/dL (112-346) Total Bilirubin 0.2 MG/DL (0.2-1.0) Aspartate Amino Transf (AST/SGOT) 11 U/L (15-37) L Alanine Aminotransferase (ALT/SGPT) 12 U/L (12-78) Alkaline Phosphatase 106 U/L (46-116) Total Protein 5.8 G/DL (6.4-8.2) L Albumin 2.7 G/DL (3.4-5.0) L Globulin 3.1 g/dL Albumin/Globulin Ratio 0.9 (1.0-2.7) L Microbiology Date/Time Source Procedure Growth Status 02/12/20 15:30 Urine,Clean Catch Urine Culture - Preliminary Proteus Mirabilis Resulted 02/12/20 14:00 Blood Blood Culture - Preliminary NO GROWTH AFTER 48 HOURS Resulted 02/12/20 13:45 Blood Blood Culture - Preliminary NO GROWTH AFTER 48 HOURS Resulted Objective HEAD AND NECK: No JVD. LUNGS: Decreased breath sounds. CARDIOVASCULAR: Regular S1 and S2 with no gallop or murmur. ABDOMEN: Soft. EXTREMITIES: 2+ pitting edema. Chato Oliveira MD Feb 15, 2020 13:03
--- NOTE | 2020-02-15 15:32 | Surgery Progress Note ---
Surgery Progress Note Subjective Symptoms: improved, pain absent, tolerating diet, passing flatus Objective Last 24 Hour Vital Signs Date Time Temp Pulse Resp B/P (MAP) Pulse Ox O2 Delivery O2 Flow Rate FiO2 02/15/20 12:00 97.6 78 20 145/81 (102) 97 02/15/20 09:12 96 159/69 02/15/20 09:11 159/69 02/15/20 09:00 Room Air 02/15/20 08:00 97.3 86 20 159/69 (99) 96 02/15/20 04:00 98.3 69 14 113/64 (80) 95 02/15/20 00:00 97.9 84 15 121/86 (98) 96 02/14/20 21:00 Room Air 02/14/20 20:00 98.3 75 19 138/73 (94) 96 02/14/20 16:00 97.5 95 20 134/99 (111) 94 I&O Intake and Output 02/14/20 02/15/20 19:00 07:00 Intake Total 1217.5 ml 1000 ml Output Total 500 ml Balance 1217.5 ml 500 ml Intake Oral 300 ml 550 ml IV Total 917.5 ml 450 ml Output Urine Total 500 ml # Voids 2 # Bowel Movements 1 Dressing: saturated Cardiovascular: RSR Respiratory: decreased breath sounds Abdomen: soft, non-tender, present bowel sounds Extremities: no edema, no tenderness, no cyanosis Laboratory Tests Test 02/15/20 04:45 White Blood Count 5.6 K/UL (4.8-10.8) Red Blood Count 5.25 M/UL (4.20-5.40) Hemoglobin 12.6 G/DL (12.0-16.0) Hematocrit 40.8 % (37.0-47.0) Mean Corpuscular Volume 78 FL (80-99) L Mean Corpuscular Hemoglobin 24.1 PG (27.0-31.0) L Mean Corpuscular Hemoglobin Concent 31.0 G/DL (32.0-36.0) L Red Cell Distribution Width 16.0 % (11.6-14.8) H Platelet Count 278 K/UL (150-450) Mean Platelet Volume 5.0 FL (6.5-10.1) L Neutrophils (%) (Auto) 49.4 % (45.0-75.0) Lymphocytes (%) (Auto) 33.6 % (20.0-45.0) Monocytes (%) (Auto) 8.8 % (1.0-10.0) Eosinophils (%) (Auto) 5.9 % (0.0-3.0) H Basophils (%) (Auto) 2.3 % (0.0-2.0) H Sodium Level 140 MMOL/L (136-145) Potassium Level 4.1 MMOL/L (3.5-5.1) Chloride Level 107 MMOL/L (98-107) Carbon Dioxide Level 27 MMOL/L (21-32) Anion Gap 6 mmol/L (5-15) Blood Urea Nitrogen 9 mg/dL (7-18) Creatinine 0.6 MG/DL (0.55-1.30) Estimat Glomerular Filtration Rate > 60 mL/min (>60) Glucose Level 119 MG/DL (74-106) H Calcium Level 8.6 MG/DL (8.5-10.1) Iron Level 41 ug/dL (50-175) L Total Iron Binding Capacity 228 ug/dL (250-450) L Percent Iron Saturation 18 % (15-50) Unsaturated Iron Binding 187 ug/dL (112-346) Total Bilirubin 0.2 MG/DL (0.2-1.0) Aspartate Amino Transf (AST/SGOT) 11 U/L (15-37) L Alanine Aminotransferase (ALT/SGPT) 12 U/L (12-78) Alkaline Phosphatase 106 U/L (46-116) Total Protein 5.8 G/DL (6.4-8.2) L Albumin 2.7 G/DL (3.4-5.0) L Globulin 3.1 g/dL Albumin/Globulin Ratio 0.9 (1.0-2.7) L Plan Problems: (1) Decubitus skin ulcer Assessment & Plan: Pt presented on admission with Full thickness Pressure Injury Sacrum/R Buttocks. Base of wound is moist,lindsey with scattered areas of Slough, and Biofilm, Borders are irregular. Small amt serosanguineous exudate.(L)7cm x (W)7.5cm x(D)0.2cm. Surrounding non-blanchable erythema with ad ditional shearing periwound. Unstageable Pressure Injury Maria D Cleft of Buttocks(L)2.5cm x (W)0.9cm. Base of Pressure Injury is 95% slough,5% lindsey with surrounding non-blanching erythema. Scattered epithelial and hyperpigmentation noted to L buttocks. R lower extremity internally rotated. Xerosis skin Bilat lower ext. An area of hyperpigmentation noted to R tibia. Both heels are non-blanchable but wihtou fluctuance. Pt complained both heels are tender to minimal touch. Tx.Plan: Cleanse wounds Buttocks with Saline. Apply Therahoney . Apply Moisture Barrier Paste Periwound. Cover with Optifoam drsg. Change every 3 days and prn. Moisturize Both lower ext with Phytoplex Lotion. Apply Cavilon Skin Barrier to both heels and Malleoli. Cover each site with Optifoam drsg. Change every 7 days and prn. Reposition at least every 2hours or as tolerated. Off-load heels with Pillow. Pulmonary arteries are well-opacified. No definite intraluminal filling defects or other findings to suggest pulmonary emboli are demonstrated. Normal caliber pulmonary arteries. No evidence of thoracic aortic aneurysm or dissection. No evidence of right ventricular dilatation. The lungs demonstrate a slight mosaic perfusion pattern. There is elevation of the right hemidiaphragm. This results in atelectatic changes of the base of the right lower lobe. There is also some crowding of the bronchovascular markings in the left lower lobe. No definite infiltrates, effusions, masses, or nodules are demonstrated. The esophagus is markedly dilated gas-filled proximally, fluid-filled distally. The dilatation appears to extend to the distal esophagus. The heart is borderline enlarged. No pericardial effusion demonstrated. No mediastinal or hilar mass or adenopathy. The thyroid demonstrates a 19 mm low-attenuation lesion in the lower pole of the left lobe. No axillary or chest wall mass or adenopathy. There appears to be a very large joint effusion surrounding the left humeral head. There are chronic appearing erosive changes of the limit and to a lesser extent the humeral head. No axillary or chest wall mass or adenopathy. There is degenerative spondylosis noted. The included upper abdominal anatomy is unremarkable. Impression: No evidence of acute pulmonary embolus or other acute thoracic vascular pathology Elevated right hemidiaphragm. Resultant basilar atelectatic changes. No definite infiltrates Borderline cardiomegaly Slight mosaic pulmonary perfusion pattern. There is a broad differential, but possibly on the basis of very mild pulmonary edema Markedly dilated gas and fluid-filled esophagus. Most likely secondary to distal dysmotility, but given the degree of distention the possibility of the downstream obstructive lesion should also be considered. Large left humeral head joint effusion. Fairly extensive chronic appearing erosive changes of the glenoid could be due to degenerative changes, but given the large effusion the possibility of septic arthropathy should also be considered. Correlate with clinical findings and history. Findings discussed by phone with Dr. Olivas at the time of interpretation (2) Nephrolithiasis (3) UTI (urinary tract infection) (4) FTT (failure to thrive) in adult Assessment & Plan: DAILY ESTIMATED NEEDS: Needs based on Wound, obese, cardiac 63.6abw 25-30 kcals/kg [id number] total kcals 1.25-1.5 g protein/kg 80-95 g total protein Fluid per MD, on lasix NUTRITION DIAGNOSIS: Decreased sodium needs r/t h/o CVA as evidenced by pt w/ HTN, elev BP on adm, now on lasix. CURRENT DIET: Regular diet, ms finely chopped PO DIET RECOMMENDATIONS: LOW NA DIET (texture per SERVICE DELIVERY MANAGER) ADDITIONAL RECOMMENDATIONS: 1) Maintain calibrated bed scale wts 2) Monitor for continued good po intake 3) F/up w/ WC eval 4) Monitor lytes daily on lasix 5) F/up w/ PO intake, need for snacks, supplements Aaron Thomas Feb 15, 2020 15:32
[2020-02-15 16:00] VITALS: BP 159/77
[2020-02-15] MEDS: Meropenem 1gm in NS 55ml IVPB SCH (17:33)
[2020-02-15 20:00] VITALS: BP 157/81
[2020-02-15] MEDS: Miralax 17gm pkt ORAL SCH (21:01)
--- NOTE | 2020-02-15 21:32 | Infectious Diseases Prog Note ---
Assessment/Plan Assessment/Plan ASSESSMENT AND PLAN: 1. proteus complicated uti with FTT, weakness, + ua - meropenem started (resistant to ceftriaxone which was discontinued) - d/w pharmacy about antibiotics - monitor labs - communicated with primary care team - d/w RN and patient 2. CVA with right-sided weakness and dysarthria. 3. Kidney stone. 4. Urology been consulted. 5. Hypertension. 6. Blood pressure treatment per Dr. Olivas. 7. History of diverticulitis requiring surgery in the past. 8. No history of diabetes or cancer. 9. Monitor for aspiration with history of CVA and right-sided weakness. 10. No evidence or signs and symptoms of COVID-19 infection. 11. Allergies to acetaminophen, lisinopril, and oxycodone. She also told me penicillin, but that is not documented. I am not clear. She tolerated Rocephin. 12. Family history is noncontributory. 13. Social history is negative. 14. MAR is noted. 15. Case was discussed also with the RN. 16. Case discussed with Dr. Olivas. 17. Continue treatment per primary consultants. Subjective Constitutional: Reports: fatigue; Denies: fever HEENT: Denies: congestion Respiratory: Denies: shortness of breath Cardiovascular: Denies: chest pain Gastrointestinal/Abdominal: Denies: nausea, vomiting, diarrhea Genitourinary: Reports: other - no garcia Neurologic: Denies: headache Psychiatric: Denies: depression Skin: Denies: rash Hematologic: Denies: bleeding Musculoskeletal: Denies: pain Allergies: Coded Allergies: ACETAMINOPHEN (Unverified Allergy, Unknown, 02/12/20) CODEINE (Unverified Allergy, Unknown, 02/12/20) LISINOPRIL (Verified Allergy, Unknown, 02/01/20) OXYCODONE (Verified Allergy, Unknown, 02/01/20) Objective Last 24 Hour Vital Signs Date Time Temp Pulse Resp B/P (MAP) Pulse Ox O2 Delivery O2 Flow Rate FiO2 02/15/20 16:00 98.2 83 20 159/77 (104) 97 02/15/20 12:00 97.6 78 20 145/81 (102) 97 02/15/20 09:12 96 159/69 02/15/20 09:11 159/69 02/15/20 09:00 Room Air 02/15/20 08:00 97.3 86 20 159/69 (99) 96 02/15/20 04:00 98.3 69 14 113/64 (80) 95 02/15/20 00:00 97.9 84 15 121/86 (98) 96 Height (Feet): 5 Height (Inches): 5.00 Weight (Pounds): 180 General Appearance: no acute distress HEENT: normocephalic, atraumatic, anicteric, mucous membranes moist Respiratory/Chest: lungs clear, normal breath sounds, no respiratory distress, no accessory muscle use Cardiovascular: normal rate, regular rhythm, no gallop/murmur, no JVD Abdomen: normal bowel sounds, soft, non tender, no organomegaly, non distended Genitourinary: other - no garcia Extremities: no cyanosis Skin: no rash Neurologic/Psychiatric: machine sneller II-XII grossly normal, alert, responsive Lymphatic: no neck adenopathy Musculoskeletal: no effusion CTA - Chest: Impression: No evidence of acute pulmonary embolus or other acute thoracic vascular pathology Elevated right hemidiaphragm. Resultant basilar atelectatic changes. No definite infiltrates Borderline cardiomegaly Slight mosaic pulmonary perfusion pattern. There is a broad differential, but possibly on the basis of very mild pulmonary edema Markedly dilated gas and fluid-filled esophagus. Most likely secondary to distal dysmotility, but given the degree of distention the possibility of the downstream obstructive lesion should also be considered. Large left humeral head joint effusion. Fairly extensive chronic appearing erosive changes of the glenoid could be due to degenerative changes, but given the large effusion the possibility of septic arthropathy should also be considered. Correlate with clinical findings and history. Chest x-ray - 02/13/20 - Procedure: XRAY Chest 1v Indication: Shortness of breath Technique: One view of the chest Comparison: none Findings: Inspiration is suboptimal. There is crowding of the bronchovascular markings at the lung bases. The heart size is upper limits of normal. Impression: Hypoventilatory exam. No definite acute abnormality Microbiology Date/Time Source Procedure Growth Status 02/12/20 15:30 Urine,Clean Catch Urine Culture - Preliminary Proteus Mirabilis Resulted 02/12/20 14:00 Blood Blood Culture - Preliminary NO GROWTH AFTER 48 HOURS Resulted Laboratory Tests Test 02/15/20 04:45 White Blood Count 5.6 K/UL (4.8-10.8) Red Blood Count 5.25 M/UL (4.20-5.40) Hemoglobin 12.6 G/DL (12.0-16.0) Hematocrit 40.8 % (37.0-47.0) Mean Corpuscular Volume 78 FL (80-99) L Mean Corpuscular Hemoglobin 24.1 PG (27.0-31.0) L Mean Corpuscular Hemoglobin Concent 31.0 G/DL (32.0-36.0) L Red Cell Distribution Width 16.0 % (11.6-14.8) H Platelet Count 278 K/UL (150-450) Mean Platelet Volume 5.0 FL (6.5-10.1) L Neutrophils (%) (Auto) 49.4 % (45.0-75.0) Lymphocytes (%) (Auto) 33.6 % (20.0-45.0) Monocytes (%) (Auto) 8.8 % (1.0-10.0) Eosinophils (%) (Auto) 5.9 % (0.0-3.0) H Basophils (%) (Auto) 2.3 % (0.0-2.0) H Sodium Level 140 MMOL/L (136-145) Potassium Level 4.1 MMOL/L (3.5-5.1) Chloride Level 107 MMOL/L (98-107) Carbon Dioxide Level 27 MMOL/L (21-32) Anion Gap 6 mmol/L (5-15) Blood Urea Nitrogen 9 mg/dL (7-18) Creatinine 0.6 MG/DL (0.55-1.30) Estimat Glomerular Filtration Rate > 60 mL/min (>60) Glucose Level 119 MG/DL (74-106) H Calcium Level 8.6 MG/DL (8.5-10.1) Iron Level 41 ug/dL (50-175) L Total Iron Binding Capacity 228 ug/dL (250-450) L Percent Iron Saturation 18 % (15-50) Unsaturated Iron Binding 187 ug/dL (112-346) Total Bilirubin 0.2 MG/DL (0.2-1.0) Aspartate Amino Transf (AST/SGOT) 11 U/L (15-37) L Alanine Aminotransferase (ALT/SGPT) 12 U/L (12-78) Alkaline Phosphatase 106 U/L (46-116) Total Protein 5.8 G/DL (6.4-8.2) L Albumin 2.7 G/DL (3.4-5.0) L Globulin 3.1 g/dL Albumin/Globulin Ratio 0.9 (1.0-2.7) L Current Medications Medications (Trade) Dose Ordered Sig/Uriel Route PRN Reason Start Time Stop Time Status Last Admin Dose Admin Barium Sulfate (Varibar Honey) 250 ml NOW PRN MC RAD 02/12/20 22:00 02/15/20 21:53 Barium Sulfate (Varibar Nicholson) 240 ml NOW PRN MC RAD 02/12/20 22:00 02/15/20 21:53 Barium Sulfate (Varibar Pudding) 230 ml NOW PRN RAD 02/12/20 22:00 02/15/20 21:53 Barium Sulfate (Varibar Thin Liquid powder) 148 gm NOW PRN RAD 02/12/20 22:00 02/15/20 21:53 Clonidine HCl (Catapres Tab) 0.1 mg Q4H PRN ORAL SBP > 160 02/12/20 17:15 05/12/20 17:14 Dextrose/Sodium Chloride 1,000 ml @ 75 mls/hr [id number] IV 02/13/20 23:15 03/14/20 23:14 02/15/20 15:10 Diphenhydramine HCl (Benadryl) 25 mg Q6H PRN ORAL Itching 02/13/20 04:15 03/14/20 04:14 02/15/20 20:01 Docusate Sodium (Colace) 100 mg TWICE A DAY ORAL 02/12/20 18:00 03/13/20 17:59 02/15/20 17:32 Furosemide (Lasix) 40 mg DAILY ORAL 02/15/20 09:00 03/16/20 08:59 02/15/20 09:12 Gabapentin (Neurontin) 300 mg TID@0200,1000,1800 ORAL 02/13/20 02:00 03/14/20 01:59 02/15/20 17:32 Heparin Sodium (Porcine) (Heparin 5000 units/ml) 5,000 units EVERY 12 HOURS SUBQ 02/12/20 21:00 11/6/20 20:59 02/15/20 21:02 Losartan Potassium (Cozaar) 50 mg DAILY ORAL 02/13/20 09:00 03/14/20 08:59 02/15/20 09:11 Meropenem 1 gm/ Sodium Chloride 55 ml @ 110 mls/hr Q12H IVPB 02/15/20 18:00 02/20/20 17:59 02/15/20 17:33 Nifedipine (Procardia XL) 30 mg DAILY ORAL 02/13/20 09:00 03/14/20 08:59 02/15/20 09:12 Pantoprazole (Protonix) 40 mg DAILY ORAL 02/15/20 09:00 03/16/20 08:59 02/15/20 09:11 Polyethylene Glycol (Miralax) 17 gm BEDTIME ORAL 02/12/20 21:00 03/13/20 20:59 02/15/20 21:01 Darrell Alcazar MD Feb 15, 2020 21:32
--- NOTE | 2020-02-15 23:50 | General Progress Note ---
Subjective Allergies: Coded Allergies: ACETAMINOPHEN (Unverified Allergy, Unknown, 02/12/20) CODEINE (Unverified Allergy, Unknown, 02/12/20) LISINOPRIL (Verified Allergy, Unknown, 02/01/20) OXYCODONE (Verified Allergy, Unknown, 02/01/20) Subjective unable to get UGI today no new symptoms Objective Last 24 Hour Vital Signs Date Time Temp Pulse Resp B/P (MAP) Pulse Ox O2 Delivery O2 Flow Rate FiO2 02/15/20 20:00 98.4 93 20 157/81 (106) 96 02/15/20 16:00 98.2 83 20 159/77 (104) 97 02/15/20 12:00 97.6 78 20 145/81 (102) 97 02/15/20 09:12 96 159/69 02/15/20 09:11 159/69 02/15/20 09:00 Room Air 02/15/20 08:00 97.3 86 20 159/69 (99) 96 02/15/20 04:00 98.3 69 14 113/64 (80) 95 02/15/20 00:00 97.9 84 15 121/86 (98) 96 Intake and Output 02/14/20 02/15/20 19:00 07:00 Intake Total 1217.5 ml 1000 ml Output Total 500 ml Balance 1217.5 ml 500 ml Intake Oral 300 ml 550 ml IV Total 917.5 ml 450 ml Output Urine Total 500 ml # Voids 2 # Bowel Movements 1 Laboratory Tests 02/15/20 04:45: White Blood Count 5.6, Red Blood Count 5.25, Hemoglobin 12.6, Hematocrit 40.8, Mean Corpuscular Volume 78L, Mean Corpuscular Hemoglobin 24.1L, Mean Corpuscular Hemoglobin Concent 31.0L, Red Cell Distribution Width 16.0H, Platelet Count 278, Mean Platelet Volume 5.0L, Neutrophils (%) (Auto) 49.4, Lymphocytes (%) (Auto) 33.6, Monocytes (%) (Auto) 8.8, Eosinophils (%) (Auto) 5.9H, Basophils (%) (Auto) 2.3H, Sodium Level 140, Potassium Level 4.1, Chloride Level 107, Carbon Dioxide Level 27, Anion Gap 6, Blood Urea Nitrogen 9, Creatinine 0.6, Estimat Glomerular Filtration Rate > 60, Glucose Level 119H, Calcium Level 8.6, Iron Level 41L, Total Iron Binding Capacity 228L, Percent Iron Saturation 18, Unsaturated Iron Binding 187, Total Bilirubin 0.2, Aspartate Amino Transf (AST/SGOT) 11L, Alanine Aminotransferase (ALT/SGPT) 12, Alkaline Phosphatase 106, Total Protein 5.8L, Albumin 2.7L, Globulin 3.1, Albumin/Globulin Ratio 0.9L Height (Feet): 5 Height (Inches): 5.00 Weight (Pounds): 180 Objective Elderly AA woman NCAT supple CTA RR abd soft flat NT Neuro (R) nasreen, dysarthria Assessment/Plan Assessment/Plan: Assessment - (L) hemispheric CVA with resultant dysarthria - markedly dilated esophagus on CT - long standing h/o esophageal stricture, per pt - patient declines EGD - understands indications - HTN - urolithiasis Recommendations - Esophogram pending - no EGD planned per pt refusal - will discuss with next of kin - PPI - mechanical soft diet Cristobal Vaughan MD Feb 15, 2020 23:50
--- NOTE | 2020-02-15 23:56 | Initial Psychiatric Evaluation ---
Psychiatry Consultation Psychiatry Consultation Chief Complaint: General Complaint Allergies: Coded Allergies: ACETAMINOPHEN (Unverified Allergy, Unknown, 02/12/20) CODEINE (Unverified Allergy, Unknown, 02/12/20) LISINOPRIL (Verified Allergy, Unknown, 02/01/20) OXYCODONE (Verified Allergy, Unknown, 02/01/20) Medication History Scheduled Cefuroxime Axetil* (Cefuroxime*), 500 MG PO Q12HR Docusate Sodium* (Colace*), 100 MG ORAL TWICE A DAY Gabapentin* (Gabapentin*), 300 MG ORAL THREE TIMES A DAY, (Reported) Nifedipine Er* (Nifedipine Er*), 90 MG ORAL DAILY, (Reported) Polyethylene Glycol 3350 (Miralax), 17 GM ORAL BEDTIME Scheduled PRN Ibuprofen* (Motrin*), 800 MG ORAL for For Pain, (Reported) Discontinued Medications Nifedipine Xl* (Procardia Xl*), 30 MG ORAL DAILY Discontinued Reason: Pt stopped taking med Patient History History Provided By: Patient, Medical Record, PMD Objective Data Height (Feet): 5 Height (Inches): 5.00 Weight (Pounds): 180 Additional Comments: alert, oriented times self, place, and date. She has poor insight into the situation. Mood is anxious. Affect is blunted, congruent with mood. Thought process is concrete. Thought content, no suicidal or homicidal ideation. Cognition is impaired. Insight and judgment is limited. Assessment/Plan Assessment/Plan: the pt is illogcal and lacks capacity to make decisions pt should be dced to sniff or home with 24/7 patient care technician. the pt was started on remeron for low appetite and anxiety Diagnosis Erie I: anxiety failure to thrive ASSESSMENT: Erie I Anxiety disorder. Vascular dementia. Erie II Deferred. Erie III CVA. Failure to thrive. Erie IV Moderate. Erie V 20. PLAN: 1. The patient lacks capacity to make decision. She is very irrational, unable to understand the risks versus benefits of the situation she is in and recommendation given to her. 2. We will start the Remeron 15 mg for weight loss and failure to thrive. 3. The patient will benefit from SNF or 24-hour care at home. Kalen Andrade MD Feb 15, 2020 23:56
[2020-02-16] VITALS: BP 138/79
[2020-02-16 04:00] VITALS: BP 147/78
[2020-02-16] MEDS: D5 1/2NS 1,000 ML IV SCH ×2 (04:46→16:59)
[2020-02-16] MEDS: Meropenem 1gm in NS 55ml IVPB SCH ×2 (05:44→17:40)
[2020-02-16 08:00] VITALS: BP 128/79
[2020-02-16] MEDS: Heparin 5000 units/ml inj SUBQ SCH ×2 (09:20→20:54)
[2020-02-16] MEDS: Docusate 100mg cap ORAL SCH ×2 (09:21→17:40)
[2020-02-16] MEDS: Losartan 50mg tab ORAL SCH (09:21)
[2020-02-16] MEDS: Furosemide 40mg tab ORAL SCH (09:22)
--- NOTE | 2020-02-16 09:53 | Pulmonology Progress Note ---
Simona Rios GEOTECHNICAL OPERATING ENGINEER 02/16/20 0953: Subjective ROS Limited/Unobtainable: Yes Constitutional: Reports: fatigue; Denies: fever Gastrointestinal/Abdominal: Denies: nausea, vomiting, diarrhea Psychiatric: Denies: depression Skin: Denies: rash Musculoskeletal: Denies: pain Allergies: Coded Allergies: ACETAMINOPHEN (Unverified Allergy, Unknown, 02/12/20) CODEINE (Unverified Allergy, Unknown, 02/12/20) LISINOPRIL (Verified Allergy, Unknown, 02/01/20) OXYCODONE (Verified Allergy, Unknown, 02/01/20) All Systems: reviewed and negative except above Subjective afebrile, no leukocytosis denies CP, SOB. no dysuria UCX + Proteus RSBL labs remains stable BP stabilized seen and evaluated by ortho and GI declined SNF placement ongoing issues re placement psych seen and evaluated patient, deemed pt with lack of mental capacity to make informed decisions Objective Last 24 Hour Vital Signs Date Time Temp Pulse Resp B/P (MAP) Pulse Ox O2 Delivery O2 Flow Rate FiO2 02/16/20 09:21 128/78 02/16/20 09:21 91 128/79 02/16/20 04:00 97.8 82 20 147/78 (101) 96 02/16/20 00:00 98.1 88 20 138/79 (98) 97 02/15/20 21:00 Room Air 02/15/20 20:00 98.4 93 20 157/81 (106) 96 02/15/20 16:00 98.2 83 20 159/77 (104) 97 02/15/20 12:00 97.6 78 20 145/81 (102) 97 Intake and Output 02/15/20 02/16/20 19:00 07:00 Intake Total 350 ml 1175 ml Output Total 2200 ml 450 ml Balance -1850 ml 725 ml Intake Oral 350 ml 350 ml IV Total 825 ml Output Urine Total 2200 ml 450 ml # Voids 3 General Appearance: no acute distress, other - awake, alert, rsponsive bedridden AA female with dysarthric speech HEENT: normocephalic, atraumatic, anicteric, mucous membranes moist, EOMI, supple, no JVD Respiratory: chest wall non-tender, lungs clear, no respiratory distress, no accessory muscle use Cardiovascular: normal peripheral pulses, normal rate, no JVD Abdomen: normal bowel sounds, soft, non tender, non distended Extremities: no edema, pedal pulses normal Skin: other - patches of vitiligo BLE, sacral area DTI POA Neurologic: abnormal gait, alert, responsive, other - dysarthric, R side hemiparesis Musculoskeletal: atrophy - BLE Current Medications Medications (Trade) Dose Ordered Sig/Uriel Route PRN Reason Start Time Stop Time Status Last Admin Dose Admin Clonidine HCl (Catapres Tab) 0.1 mg Q4H PRN ORAL SBP > 160 02/12/20 17:15 05/12/20 17:14 Dextrose/Sodium Chloride 1,000 ml @ 75 mls/hr [id number] IV 02/13/20 23:15 03/14/20 23:14 02/16/20 04:46 Diphenhydramine HCl (Benadryl) 25 mg Q6H PRN ORAL Itching 02/13/20 04:15 03/14/20 04:14 02/16/20 02:05 Docusate Sodium (Colace) 100 mg TWICE A DAY ORAL 02/12/20 18:00 03/13/20 17:59 02/16/20 09:21 Furosemide (Lasix) 40 mg DAILY ORAL 02/15/20 09:00 03/16/20 08:59 02/16/20 09:22 Gabapentin (Neurontin) 300 mg TID@0200,1000,1800 ORAL 02/13/20 02:00 03/14/20 01:59 02/16/20 09:21 Heparin Sodium (Porcine) (Heparin 5000 units/ml) 5,000 units EVERY 12 HOURS SUBQ 02/12/20 21:00 03/28/20 20:59 02/16/20 09:20 Losartan Potassium (Cozaar) 50 mg DAILY ORAL 02/13/20 09:00 03/14/20 08:59 02/16/20 09:21 Meropenem 1 gm/ Sodium Chloride 55 ml @ 110 mls/hr Q12H IVPB 02/15/20 18:00 02/20/20 17:59 02/16/20 05:44 Mirtazapine (Remeron) 15 mg 1900 ORAL 02/16/20 19:00 05/16/20 18:59 Nifedipine (Procardia XL) 30 mg DAILY ORAL 02/13/20 09:00 03/14/20 08:59 02/16/20 09:21 Pantoprazole (Protonix) 40 mg DAILY ORAL 02/15/20 09:00 03/16/20 08:59 02/16/20 09:21 Polyethylene Glycol (Miralax) 17 gm BEDTIME ORAL 02/12/20 21:00 03/13/20 20:59 02/15/20 21:01 Assessment/Plan Assessment/Plan ASSESSMENT/PROBLEM LIST: * FTT * Recurrent UTI, now with ESBL Proteus with hx of recent UTI * Nephrolithiasis * 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 No acute thoracic vascular pathology Noted Markedly dilated gas and fluid-filled esophagus. Most likely secondary to distal dysmotility, but given the degree of distention the possibility of the downstream obstructive lesion should also be considered. * GI eval appreciated, pt declined EGD, * per GI will get esophagram -still pending * Ucx+ Proteus ESBL ,dc Ceftriaxone and start meropenem , discussed with ID, who follows * BP control, continue Nifedipine, add Lisinopril , Lasix + PRN Clonidine, BP stabilized with current regimen * second troponin negative as well, TTE with pEF * TSH wnl * cardio eval appreciated * Venous Duplex BLE-NGT; D-dimer -2.3 * Monitor volumes and renal function, replace lytes as needed * Aspiration precautions , BSSE completed, diet texture as per ST recs with aspiration precautions * MRI brain no acute IC pathology * CTA also revealed L shoulder effusion on CT-A, , X ray shoulder 3 views-> with severe degenerative changes, no acute bony abnormalities * ortho dr Silver seen and evaluated, severe degenerative changes L shoulder, needs shoulder replacement * DVT Px: Hep SQ * PT eval and Rx * bowel regimen * wound care as per surgery recs, * FC * Dispo planning to SNF: [facility] or [facility] patient declined SNF placement, * clearly unable to care for herself, * caregiver plating department helper only ; will speak with family * supervising physician D/W daughter, pt needs 24 h care at home, patient declining SNF; * psych eval appreciated; pt lacks mental capacity to make informed decision , pt needs 24 caregiver at home or SNF ; started pt on Remeron * ongoing discussion re placement, will need to set up family conference to discuss placement and further GOC case discussed and evaluated by supervising physician Contreras Olivas MD 02/16/20 1140: Subjective Allergies: Coded Allergies: ACETAMINOPHEN (Unverified Allergy, Unknown, 02/12/20) CODEINE (Unverified Allergy, Unknown, 02/12/20) LISINOPRIL (Verified Allergy, Unknown, 02/01/20) OXYCODONE (Verified Allergy, Unknown, 02/01/20) Assessment/Plan Assessment/Plan Patient seen and examined with GEOTECHNICAL OPERATING ENGINEER. Agree with above A&P as it reflects our joint deliberations. ESBL UTI Seen by psych, lacks capacity Dispo planning underway Need to set up family mtg, have asked CM for assistance Simona Rios NP Feb 16, 2020 09:53 Contreras Olivas MD Feb 16, 2020 11:40
[2020-02-16 12:00] VITALS: BP 133/75
--- NOTE | 2020-02-16 15:49 | Cardiac Electrophysiology PN ---
Assessment/Plan Assessment/Plan 1. Accelerated hypertension. On Procardia XL 30 mg daily, Cozaar 50 mg daily and change Lasix to 40 po daily. On p.r.n. clonidine 0.1 mg every 4 hours p.r.n. EF 65%. 2. Status post right basal ganglia CVA. 3. History of laparotomy. 4. Failure to thrive. 5. Recent UTI 6. SOB and high D Dimer. Chest CT angio No PE. EF 65% DW RN Subjective Subjective Chest CT angio showed no PE. EF 65%. Placement pending. ate 100% of her food. Got Benadryl for itching Objective Last 24 Hour Vital Signs Date Time Temp Pulse Resp B/P (MAP) Pulse Ox O2 Delivery O2 Flow Rate FiO2 02/16/20 12:00 98.2 99 20 133/75 (94) 98 02/16/20 09:21 128/78 02/16/20 09:21 91 128/79 02/16/20 09:00 Room Air 02/16/20 08:00 98.1 91 19 128/79 (95) 97 02/16/20 04:00 97.8 82 20 147/78 (101) 96 02/16/20 00:00 98.1 88 20 138/79 (98) 97 02/15/20 21:00 Room Air 02/15/20 20:00 98.4 93 20 157/81 (106) 96 02/15/20 16:00 98.2 83 20 159/77 (104) 97 Intake and Output 02/15/20 02/16/20 19:00 07:00 Intake Total 350 ml 1175 ml Output Total 2200 ml 450 ml Balance -1850 ml 725 ml Intake Oral 350 ml 350 ml IV Total 825 ml Output Urine Total 2200 ml 450 ml # Voids 3 Objective HEAD AND NECK: No JVD. LUNGS: Decreased breath sounds. CARDIOVASCULAR: Regular S1 and S2 with no gallop or murmur. ABDOMEN: Soft. EXTREMITIES: 2+ pitting edema. Chato Oliveira MD Feb 16, 2020 15:49
[2020-02-16 16:00] VITALS: BP 151/80
--- NOTE | 2020-02-16 16:00 | General Progress Note ---
Subjective Allergies: Coded Allergies: ACETAMINOPHEN (Unverified Allergy, Unknown, 02/12/20) CODEINE (Unverified Allergy, Unknown, 02/12/20) LISINOPRIL (Verified Allergy, Unknown, 02/01/20) OXYCODONE (Verified Allergy, Unknown, 02/01/20) Subjective Feels OK no new symptoms no choking or vomiting Objective Last 24 Hour Vital Signs Date Time Temp Pulse Resp B/P (MAP) Pulse Ox O2 Delivery O2 Flow Rate FiO2 02/16/20 12:00 98.2 99 20 133/75 (94) 98 02/16/20 09:21 128/78 02/16/20 09:21 91 128/79 02/16/20 09:00 Room Air 02/16/20 08:00 98.1 91 19 128/79 (95) 97 02/16/20 04:00 97.8 82 20 147/78 (101) 96 02/16/20 00:00 98.1 88 20 138/79 (98) 97 02/15/20 21:00 Room Air 02/15/20 20:00 98.4 93 20 157/81 (106) 96 02/15/20 16:00 98.2 83 20 159/77 (104) 97 Intake and Output 02/15/20 02/16/20 19:00 07:00 Intake Total 350 ml 1175 ml Output Total 2200 ml 450 ml Balance -1850 ml 725 ml Intake Oral 350 ml 350 ml IV Total 825 ml Output Urine Total 2200 ml 450 ml # Voids 3 Height (Feet): 5 Height (Inches): 5.00 Weight (Pounds): 180 Objective Elderly AA woman NCAT supple CTA RR abd soft flat NT Neuro (R) nasreen, dysarthria Assessment/Plan Assessment/Plan: Assessment - (L) hemispheric CVA with resultant dysarthria - markedly dilated esophagus on CT - long standing h/o esophageal stricture, per pt - patient declines EGD - understands indications - HTN - urolithiasis Recommendations - Esophogram pending - no EGD planned per pt refusal - will discuss with next of kin - PPI - mechanical soft diet Cristobal Vaughan MD Feb 16, 2020 16:00
[2020-02-16] MEDS ORDERED: D5 1/2NS 1000ml IV ONE (17:59)
--- NOTE | 2020-02-16 19:56 | Surgery Progress Note ---
Surgery Progress Note Subjective Symptoms: improved, pain absent, tolerating diet, passing flatus, BM Objective Last 24 Hour Vital Signs Date Time Temp Pulse Resp B/P (MAP) Pulse Ox O2 Delivery O2 Flow Rate FiO2 02/16/20 16:00 97.9 71 19 151/80 (103) 94 02/16/20 12:00 98.2 99 20 133/75 (94) 98 02/16/20 09:21 128/78 02/16/20 09:21 91 128/79 02/16/20 09:00 Room Air 02/16/20 08:00 98.1 91 19 128/79 (95) 97 02/16/20 04:00 97.8 82 20 147/78 (101) 96 02/16/20 00:00 98.1 88 20 138/79 (98) 97 02/15/20 21:00 Room Air 02/15/20 20:00 98.4 93 20 157/81 (106) 96 I&O Intake and Output 02/15/20 02/16/20 19:00 07:00 Intake Total 350 ml 1175 ml Output Total 2200 ml 450 ml Balance -1850 ml 725 ml Intake Oral 350 ml 350 ml IV Total 825 ml Output Urine Total 2200 ml 450 ml # Voids 3 Dressing: saturated Cardiovascular: RSR Respiratory: decreased breath sounds Abdomen: non-tender, present bowel sounds Extremities: no cyanosis Plan Problems: (1) Decubitus skin ulcer Assessment & Plan: Pt presented on admission with Full thickness Pressure Injury Sacrum/R Buttocks. Base of wound is moist,lindsey with scattered areas of Slough, and Biofilm, Borders are irregular. Small amt serosanguineous exudate.(L)7cm x (W)7.5cm x(D)0.2cm. Surrounding non-blanchable erythema with additional shearing periwound. Unstageable Pressure Injury Cleft of Buttocks(L)2.5cm x (W)0.9cm. Base of Pressure Injury is 95% slough,5% lindsey with surrounding non-blanching erythema. Scattered epithelial and hyperpigmentation noted to L buttocks. R lower extremity internally rotated. Xerosis skin Bilat lower ext. An area of hyperpigmentation noted to R tibia. Both heels are non-blanchable but wihtou fluctuance. Pt complained both heels are tender to minimal touch. Tx.Plan: Cleanse wounds Buttocks with Saline. Apply Therahoney . Apply Moisture Barrier Paste Periwound. Cover with Optifoam drsg. Change every 3 days and prn. Moisturize Both lower ext with Phytoplex Lotion. Apply Cavilon Skin Barrier to both heels and Malleoli. Cover each site with Optifoam drsg. Change every 7 days and prn. Reposition at least every 2hours or as tolerated. Off-load heels with Pillow. Pulmonary arteries are well-opacified. No definite intraluminal filling defects or other findings to suggest pulmonary emboli are demonstrated. Normal caliber pulmonary arteries. No evidence of thoracic aortic aneurysm or dissection. No evidence of right ventricular dilatation. The lungs demonstrate a slight mosaic perfusion pattern. There is elevation of the right hemidiaphragm. This results in atelectatic changes of the base of the right lower lobe. There is also some crowding of the bronchovascular markings in the left lower lobe. No definite infiltrates, effusions, masses, or nodules are demonstrated. The esophagus is markedly dilated gas-filled proximally, fluid-filled distally. The dilatation appears to extend to the distal esophagus. The heart is borderline enlarged. No pericardial effusion demonstrated. No mediastinal or hilar mass or adenopathy. The thyroid demonstrates a 19 mm low-attenuation lesion in the lower pole of the left lobe. No axillary or chest wall mass or adenopathy. There appears to be a very large joint effusion surrounding the left humeral head. There are chronic appearing erosive changes of the limit and to a lesser extent the humeral head. No axillary or chest wall mass or adenopathy. There is degenerative spondylosis noted. The included upper abdominal anatomy is unremarkable. Impression: No evidence of acute pulmonary embolus or other acute thoracic vascular pathology Elevated right hemidiaphragm. Resultant basilar atelectatic changes. No definite infiltrates Borderline cardiomegaly Slight mosaic pulmonary perfusion pattern. There is a broad differential, but possibly on the basis of very mild pulmonary edema Markedly dilated gas and fluid-filled esophagus. Most likely secondary to distal dysmotility, but given the degree of distention the possibility of the downstream obstructive lesion should also be considered. Large left humeral head joint effusion. Fairly extensive chronic appearing erosive changes of the glenoid could be due to degenerative changes, but given the large effusion the possibility of septic arthropathy should also be considered. Correlate with clinical findings and history. Findings discussed by phone with Dr. Olivas at the time of interpretation (2) Nephrolithiasis (3) UTI (urinary tract infection) (4) FTT (failure to thrive) in adult Assessment & Plan: DAILY ESTIMATED NEEDS: Needs based on Wound, obese, cardiac 63.6abw 25-30 kcals/kg 0084-1008 total kcals 1.25-1.5 g protein/kg 80-95 g total protein Fluid per MD, on lasix NUTRITION DIAGNOSIS: Decreased sodium needs r/t h/o CVA as evidenced by pt w/ HTN, elev BP on adm, now on lasix. CURRENT DIET: Regular diet, ms finely chopped PO DIET RECOMMENDATIONS: LOW NA DIET (texture per [employer]) ADDITIONAL RECOMMENDATIONS: 1) Maintain calibrated bed scale wts 2) Monitor for continued good po intake 3) F/up w/ WC eval 4) Monitor lytes daily on lasix 5) F/up w/ PO intake, need for snacks, supplements Aaron Thomas Feb 16, 2020 19:56
[2020-02-16 20:00] VITALS: BP 152/71
[2020-02-16] MEDS: Miralax 17gm pkt ORAL SCH (20:49)
--- NOTE | 2020-02-16 22:15 | Consultation ---
DATE OF CONSULTATION: 02/16/2020 HISTORY OF PRESENT ILLNESS: The patient is a 84-year-old female with a history of cognitive impairment, anxiety disorder as well nephrolithiasis, CVA, UTI, failure to thrive, who has been admitted to the hospital for medical stabilization. The patient presenting with anxiety, stated that she wanted to be discharged. According to the family, the patient is bedridden, unable to care for self, was found in her sneakers. The patient states that she is able to care for self. When I asked her to elaborate on how she is going to bathe, do the grocery and cooking or cleaning, she was unable to say that she will hire a bartender. The patient does not have any bartender, has been significantly losing weight and is very anxious. She perseverates that she wants to be discharged to home health. PAST PSYCHIATRY HISTORY: Denied any psychiatric hospitalization. Denies suicide attempt, on no psychotropic medication. PAST MEDICAL HISTORY: As above. ALLERGIES: Tylenol, codeine, , oxycodone. SUBSTANCE ABUSE HISTORY: No known history of illicit drug use or alcohol. MENTAL STATUS EXAMINATION: The patient is alert, oriented times self, place, and date. She has poor insight into the situation. Mood is anxious. Affect is blunted, congruent with mood. Thought process is concrete. Thought content, no suicidal or homicidal ideation. Cognition is impaired. Insight and judgment is limited. ASSESSMENT: [place] I Anxiety disorder. Vascular dementia. [place] II Deferred. [place] III CVA. Failure to thrive. [place] IV Moderate. [place] V 20. PLAN: 1. The patient lacks capacity to make decision. She is very irrational, unable to understand the risks versus benefits of the situation she is in and recommendation given to her. 2. We will start the Remeron 15 mg for weight loss and failure to thrive. 3. The patient will benefit from SNF or 24-hour care at home. Kalen Andrade M.D. DR: Arnold JOB#: [id number] CC:
[2020-02-17] VITALS: BP 159/99
[2020-02-17 04:00] VITALS: BP 150/79
[2020-02-17] MEDS: Meropenem 1gm in NS 55ml IVPB SCH ×2 (05:00→18:04)
[2020-02-17 06:18] LABS: BASOPHILS % (AUTO) 2.4 % (0.0-2.0); EOSINOPHILS % (AUTO) 5.8 % (0.0-3.0); HEMATOCRIT 40.9 % (37.0-47.0); HEMOGLOBIN 12.8 G/DL (12.0-16.0); LYMPHOCYTES % (AUTO) 38.8 % (20.0-45.0); MEAN CORPUSCULAR VOLUME 78 FL (80-99); MONOCYTES % (AUTO) 9.7 % (1.0-10.0); NEUTROPHILS % (AUTO) 43.3 % (45.0-75.0); PLATELET COUNT 480 K/UL (150-450); RED BLOOD COUNT 5.25 M/UL (4.20-5.40); RED CELL DISTRIBUTION WIDTH 16.4 % (11.6-14.8); WHITE BLOOD COUNT 5.6 K/UL (4.8-10.8)
[2020-02-17] MEDS: D5 1/2NS 1,000 ML IV SCH ×2 (06:25→18:06)
[2020-02-17 06:32] LABS: ALANINE AMINOTRANSFERASE 14 U/L (12-78); ALBUMIN 2.8 G/DL (3.4-5.0); ALBUMIN/GLOBULIN RATIO 0.9 (1.0-2.7); ALKALINE PHOSPHATASE 105 U/L (46-116); ASPARTATE AMINO TRANSFERASE 11 U/L (15-37); BILIRUBIN,TOTAL 0.2 MG/DL (0.2-1.0); BLOOD UREA NITROGEN 8 mg/dL (7-18); CALCIUM 8.8 MG/DL (8.5-10.1); CHLORIDE 108 MMOL/L (98-107); CREATININE 0.6 MG/DL (0.55-1.30); POTASSIUM 4.2 MMOL/L (3.5-5.1); SODIUM 142 MMOL/L (136-145)
[2020-02-17 06:44] LABS: CARBON DIOXIDE 28 MMOL/L (21-32)
[2020-02-17 08:00] VITALS: BP 160/88
--- NOTE | 2020-02-17 08:05 | Surgery Progress Note ---
Surgery Progress Note Subjective Symptoms: improved, tolerating diet, passing flatus, BM Additional Comments eating 100% of diet improved Objective Last 24 Hour Vital Signs Date Time Temp Pulse Resp B/P (MAP) Pulse Ox O2 Delivery O2 Flow Rate FiO2 02/17/20 04:00 98.1 78 19 150/79 (102) 97 02/17/20 00:00 98.3 85 20 159/99 (119) 100 02/16/20 21:00 Room Air 02/16/20 20:00 98.4 94 18 152/71 (98) 94 02/16/20 16:00 97.9 71 19 151/80 (103) 94 02/16/20 12:00 98.2 99 20 133/75 (94) 98 02/16/20 09:21 128/78 02/16/20 09:21 91 128/79 02/16/20 09:00 Room Air I&O Intake and Output 02/16/20 02/17/20 19:00 07:00 Intake Total 550 ml 1240 ml Output Total 2100 ml 1900 ml Balance -1550 ml -660 ml Intake Oral 550 ml 360 ml IV Total 880 ml Output Urine Total 2100 ml 1900 ml Dressing: saturated Cardiovascular: RSR Respiratory: clear Abdomen: soft, non-tender, present bowel sounds Extremities: no edema, no tenderness, no cyanosis Laboratory Tests Test 02/17/20 04:55 White Blood Count 5.6 K/UL (4.8-10.8) Red Blood Count 5.25 M/UL (4.20-5.40) Hemoglobin 12.8 G/DL (12.0-16.0) Hematocrit 40.9 % (37.0-47.0) Mean Corpuscular Volume 78 FL (80-99) L Mean Corpuscular Hemoglobin 24.3 PG (27.0-31.0) L Mean Corpuscular Hemoglobin Concent 31.3 G/DL (32.0-36.0) L Red Cell Distribution Width 16.4 % (11.6-14.8) H Platelet Count 480 K/UL (150-450) H Mean Platelet Volume 5.1 FL (6.5-10.1) L Neutrophils (%) (Auto) 43.3 % (45.0-75.0) L Lymphocytes (%) (Auto) 38.8 % (20.0-45.0) Monocytes (%) (Auto) 9.7 % (1.0-10.0) Eosinophils (%) (Auto) 5.8 % (0.0-3.0) H Basophils (%) (Auto) 2.4 % (0.0-2.0) H Sodium Level 142 MMOL/L (136-145) Potassium Level 4.2 MMOL/L (3.5-5.1) Chloride Level 108 MMOL/L (98-107) H Carbon Dioxide Level 28 MMOL/L (21-32) Blood Urea Nitrogen 8 mg/dL (7-18) Creatinine 0.6 MG/DL (0.55-1.30) Estimat Glomerular Filtration Rate > 60 mL/min (>60) Glucose Level 97 MG/DL (74-106) Calcium Level 8.8 MG/DL (8.5-10.1) Total Bilirubin 0.2 MG/DL (0.2-1.0) Aspartate Amino Transf (AST/SGOT) 11 U/L (15-37) L Alanine Aminotransferase (ALT/SGPT) 14 U/L (12-78) Alkaline Phosphatase 105 U/L (46-116) Total Protein 5.8 G/DL (6.4-8.2) L Albumin 2.8 G/DL (3.4-5.0) L Globulin 3.0 g/dL Albumin/Globulin Ratio 0.9 (1.0-2.7) L Plan Problems: (1) Decubitus skin ulcer Assessment & Plan: Pt presented on admission with Full thickness Pressure Injury Sacrum/R Buttocks. Base of wound is moist,lindsey with scattered areas of Slough, and Biofilm, Borders are irregular. Small amt serosanguineous exudate.(L)7cm x (W)7.5cm x(D)0.2cm. Surrounding non-blanchable erythema with additional shearing periwound. Unstageable Pressure Injury Maria D Cleft of Buttocks(L)2.5cm x (W)0.9cm. Base of Pressure Injury is 95% slough,5% lindsey with surrounding non-blanching erythema. Scattered epithelial and hyperpigmentation noted to L buttocks. R lower extremity internally rotated. Xerosis skin Bilat lower ext. An area of hyperpigmentation noted to R tibia. Both heels are non-blanchable but wihtou fluctuance. Pt complained both heels are tender to minimal touch. Tx.Plan: Cleanse wounds Buttocks with Saline. Apply Therahoney . Apply Moisture Barrier Paste Periwound. Cover with Optifoam drsg. Change every 3 days and prn. Moisturize Both lower ext with Phytoplex Lotion. Apply Cavilon Skin Barrier to both heels and Malleoli. Cover each site with Optifoam drsg. Change every 7 days and prn. Reposition at least every 2hours or as tolerated. Off-load heels with Pillow. Pulmonary arteries are well-opacified. No definite intraluminal filling defects or other findings to suggest pulmonary emboli are demonstrated. Normal caliber pulmonary arteries. No evidence of thoracic aortic aneurysm or dissection. No evidence of right ventricular dilatation. The lungs demonstrate a slight mosaic perfusion pattern. There is elevation of the right hemidiaphragm. This results in atelectatic changes of the base of the righ t lower lobe. There is also some crowding of the bronchovascular markings in the left lower lobe. No definite infiltrates, effusions, masses, or nodules are demonstrated. The esophagus is markedly dilated gas-filled proximally, fluid-filled distally. The dilatation appears to extend to the distal esophagus. The heart is borderline enlarged. No pericardial effusion demonstrated. No mediastinal or hilar mass or adenopathy. The thyroid demonstrates a 19 mm low-attenuation lesion in the lower pole of the left lobe. No axillary or chest wall mass or adenopathy. There appears to be a very large joint effusion surrounding the left humeral head. There are chronic appearing erosive changes of the limit and to a lesser extent the humeral head. No axillary or chest wall mass or adenopathy. There is degenerative spondylosis noted. The included upper abdominal anatomy is unremarkable. Impression: No evidence of acute pulmonary embolus or other acute thoracic vascular pathology Elevated right hemidiaphragm. Resultant basilar atelectatic changes. No definite infiltrates Borderline cardiomegaly Slight mosaic pulmonary perfusion pattern. There is a broad differential, but possibly on the basis of very mild pulmonary edema Markedly dilated gas and fluid-filled esophagus. Most likely secondary to distal dysmotility, but given the degree of distention the possibility of the downstream obstructive lesion should also be considered. Large left humeral head joint effusion. Fairly extensive chronic appearing erosive changes of the glenoid could be due to degenerative changes, but given the large effusion the possibility of septic arthropathy should also be considered. Correlate with clinical findings and history. Findings discussed by phone with Dr. Olivas at the time of interpretation (2) Nephrolithiasis (3) UTI (urinary tract infection) (4) FTT (failure to thrive) in adult Assessment & Plan: DAILY ESTIMATED NEEDS: Needs based on Wound, obese, cardiac 63.6abw 25-30 kcals/kg 2089-7278 total kcals 1.25-1.5 g protein/kg 80-95 g total protein Fluid per MD, on lasix NUTRITION DIAGNOSIS: Decreased sodium needs r/t h/o CVA as evidenced by pt w/ HTN, elev BP on adm, now on lasix. CURRENT DIET: Regular diet, ms finely chopped PO DIET RECOMMENDATIONS: LOW NA DIET (texture per [employer]) ADDITIONAL RECOMMENDATIONS: 1) Maintain calibrated bed scale wts 2) Monitor for continued good po intake 3) F/up w/ WC eval 4) Monitor lytes daily on lasix 5) F/up w/ PO intake, need for snacks, supplements Aaron Thomas Feb 17, 2020 08:05
--- NOTE | 2020-02-17 09:38 | Pulmonology Progress Note ---
Simona Rios [employer] [employer]OOM 02/17/20 0938: Subjective ROS Limited/Unobtainable: Yes Constitutional: Reports: fatigue; Denies: fever Gastrointestinal/Abdominal: Denies: nausea, vomiting, diarrhea Psychiatric: Denies: depression Skin: Denies: rash Musculoskeletal: Denies: pain Allergies: Coded Allergies: ACETAMINOPHEN (Unverified Allergy, Unknown, 02/12/20) CODEINE (Unverified Allergy, Unknown, 02/12/20) LISINOPRIL (Verified Allergy, Unknown, 02/01/20) OXYCODONE (Verified Allergy, Unknown, 02/01/20) All Systems: reviewed and negative except above Subjective afebrile, no leukocytosis denies CP, SOB. no dysuria UCX + Proteus RSBL labs remains stable BP elevated this am ( prior to taking routine meds) seen and evaluated by ortho and GI declined SNF placement ongoing issues re placement psych seen and evaluated patient, deemed pt with lack of mental capacity to make informed decisions Objective Last 24 Hour Vital Signs Date Time Temp Pulse Resp B/P (MAP) Pulse Ox O2 Delivery O2 Flow Rate FiO2 02/17/20 08:00 98.0 92 20 160/88 (112) 96 02/17/20 04:00 98.1 78 19 150/79 (102) 97 02/17/20 00:00 98.3 85 20 159/99 (119) 100 02/16/20 21:00 Room Air 02/16/20 20:00 98.4 94 18 152/71 (98) 94 02/16/20 16:00 97.9 71 19 151/80 (103) 94 02/16/20 12:00 98.2 99 20 133/75 (94) 98 Intake and Output0 02/16/20 02/17/20 19:00 07:00 Intake Total 550 ml 1240 ml Output Total 2100 ml 1900 ml Balance -1550 ml -660 ml Intake Oral 550 ml 360 ml IV Total 880 ml Output Urine Total 2100 ml 1900 ml General Appearance: no acute distress, other - awake, alert, rsponsive bedridden AA female with dysarthric speech HEENT: normocephalic, atraumatic, anicteric, mucous membranes moist, EOMI, supple, no JVD Respiratory: chest wall non-tender, lungs clear, no respiratory distress, no accessory muscle use Cardiovascular: normal peripheral pulses, normal rate, no JVD Abdomen: normal bowel sounds, soft, non tender, non distended Extremities: no edema, pedal pulses normal Skin: other - patches of vitiligo BLE, sacral area DTI POA Neurologic: abnormal gait, alert, responsive, other - dysarthric, R side hemiparesis Musculoskeletal: atrophy - BLE Laboratory Tests 02/17/20 04:55: White Blood Count 5.6, Red Blood Count 5.25, Hemoglobin 12.8, Hematocrit 40.9, Mean Corpuscular Volume 78L, Mean Corpuscular Hemoglobin 24.3L, Mean Corpuscular Hemoglobin Concent 31.3L, Red Cell Distribution Width 16.4H, Platelet Count 480H , Mean Platelet Volume 5.1L, Neutrophils (%) (Auto) 43.3L, Lymphocytes (%) (Auto) 38.8, Monocytes (%) (Auto) 9.7, Eosinophils (%) (Auto) 5.8H, Basophils (%) (Auto) 2.4H, Sodium Level 142, Potassium Level 4.2, Chloride Level 108H, Carbon Dioxide Level 28, Blood Urea Nitrogen 8, Creatinine 0.6, Estimat Glomerular Filtration Rate > 60, Glucose Level 97, Calcium Level 8.8, Total Bilirubin 0.2, Aspartate Amino Transf (AST/SGOT) 11L, Alanine Aminotransferase (ALT/SGPT) 14, Alkaline Phosphatase 105, Total Protein 5.8L, Albumin 2.8L, Globulin 3.0, Albumin/Globulin Ratio 0.9L Current Medications Medications (Trade) Dose Ordered Sig/Uriel Route PRN Reason Start Time Stop Time Status Last Admin Dose Admin Clonidine HCl (Catapres Tab) 0.1 mg Q4H PRN ORAL SBP > 160 02/12/20 17:15 05/12/20 17:14 Dextrose/Sodium Chloride 1,000 ml @ 75 mls/hr [id number] IV 02/13/20 23:15 03/14/20 23:14 02/17/20 06:25 Diphenhydramine HCl (Benadryl) 25 mg Q6H PRN ORAL Itching 02/13/20 04:15 03/14/20 04:14 02/17/20 05:00 Docusate Sodium (Colace) 100 mg TWICE A DAY ORAL 02/12/20 18:00 03/13/20 17:59 02/16/20 17:40 Furosemide (Lasix) 40 mg DAILY ORAL 02/15/20 09:00 03/16/20 08:59 02/16/20 09:22 Gabapentin (Neurontin) 300 mg TID@0200,1000,1800 ORAL 02/13/20 02:00 03/14/20 01:59 02/17/20 01:44 Heparin Sodium (Porcine) (Heparin 5000 units/ml) 5,000 units EVERY 12 HOURS SUBQ 02/12/20 21:00 03/28/20 20:59 02/16/20 20:54 Losartan Potassium (Cozaar) 50 mg DAILY ORAL 02/13/20 09:00 03/14/20 08:59 02/16/20 09:21 Meropenem 1 gm/ Sodium Chloride 55 ml @ 110 mls/hr Q12H IVPB 02/15/20 18:00 02/20/20 17:59 02/17/20 05:00 Mirtazapine (Remeron) 15 mg 1900 ORAL 02/16/20 19:00 05/16/20 18:59 02/16/20 18:48 Nifedipine (Procardia XL) 30 mg DAILY ORAL 02/13/20 09:00 03/14/20 08:59 02/16/20 09:21 Pantoprazole (Protonix) 40 mg DAILY ORAL 02/15/20 09:00 03/16/20 08:59 02/16/20 09:21 Polyethylene Glycol (Miralax) 17 gm BEDTIME ORAL 02/12/20 21:00 03/13/20 20:59 02/16/20 20:49 Assessment/Plan Assessment/Plan ASSESSMENT/PROBLEM LIST: * FTT * Recurrent UTI, now with ESBL Proteus with hx of recent UTI * Nephrolithiasis * 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 No acute thoracic vascular pathology Noted Markedly dilated gas and fluid-filled esophagus. Most likely secondary to distal dysmotility, but given the degree of distention the possibility of the downstream obstructive lesion should also be considered. * GI eval appreciated, pt declined EGD, * per GI will get esophagram -still pending * Ucx+ Proteus ESBL ,dc Ceftriaxone and start meropenem , discussed with ID, who follows * BP control, continue Nifedipine, add Lisinopril , Lasix + PRN Clonidine, optimize further as needed-per cardio recs * second troponin negative as well, TTE with pEF * TSH wnl * cardio eval appreciated * Venous Duplex BLE-NGT; D-dimer -2.3 * Monitor volumes and renal function, replace lytes as needed * Aspiration precautions , BSSE completed, diet texture as per ST recs with aspiration precautions * MRI brain no acute IC pathology * CTA also revealed L shoulder effusion on CT-A, , X ray shoulder 3 views-> with severe degenerative changes, no acute bony abnormalities * ortho dr Silver seen and evaluated, severe degenerative changes L shoulder, needs shoulder replacement * DVT Px: Hep SQ * PT eval and Rx * bowel regimen * wound care as per surgery recs, * FC * Dispo planning to SNF: [facility] or [facility] patient declined SNF placement, * clearly unable to care for herself, * caregiver psychology department chair only ; will speak with family * supervising physician D/W daughter, pt needs 24 h care at home, patient declining SNF; * psych eval appreciated; pt lacks mental capacity to make informed decision , pt needs 24 caregiver at home or SNF ; started pt on Remeron * ongoing discussion re placement, will need to set up family conference to discuss placement and further GOC case discussed and evaluated by supervising physician Contreras Olivas MD 02/18/20 1505: Subjective Allergies: Coded Allergies: ACETAMINOPHEN (Unverified Allergy, Unknown, 02/12/20) CODEINE (Unverified Allergy, Unknown, 02/12/20) LISINOPRIL (Verified Allergy, Unknown, 02/01/20) OXYCODONE (Verified Allergy, Unknown, 02/01/20) Assessment/Plan Assessment/Plan Patient seen and examined with [employer]. Agree with above A&P as it reflects our joint deliberations. Simona Rios NP Feb 17, 2020 09:38 Contreras Olivas MD Feb 18, 2020 15:05
[2020-02-17] MEDS: Docusate 100mg cap ORAL SCH ×2 (09:50→18:04)
[2020-02-17] MEDS: Losartan 50mg tab ORAL SCH (09:50)
[2020-02-17] MEDS: Furosemide 40mg tab ORAL SCH (09:51)
[2020-02-17] MEDS: Heparin 5000 units/ml inj SUBQ SCH ×2 (09:52→21:22)
[2020-02-17 12:00] VITALS: BP 139/70
--- NOTE | 2020-02-17 13:23 | Cardiac Electrophysiology PN ---
Assessment/Plan Assessment/Plan 1. Accelerated hypertension. On Procardia XL 30 mg daily, Cozaar 50 mg daily and Lasix 40 po daily. Got the p.r.n. clonidine 0.1 mg EF 65%. 2. Status post right basal ganglia CVA. 3. History of laparotomy. 4. Failure to thrive. 5. Recent UTI 6. SOB and high D Dimer. Chest CT angio No PE. EF 65% DW RN Subjective Subjective Chest CT angio showed no PE. EF 65%. Placement pending. BP is in 170s Objective Last 24 Hour Vital Signs Date Time Temp Pulse Resp B/P (MAP) Pulse Ox O2 Delivery O2 Flow Rate FiO2 02/17/20 12:00 97.9 100 18 139/70 (93) 98 02/17/20 09:50 160/88 02/17/20 09:50 92 160/88 02/17/20 09:00 Room Air 02/17/20 08:00 98.0 92 20 160/88 (112) 96 02/17/20 04:00 98.1 78 19 150/79 (102) 97 02/17/20 00:00 98.3 85 20 159/99 (119) 100 02/16/20 21:00 Room Air 02/16/20 20:00 98.4 94 18 152/71 (98) 94 02/16/20 16:00 97.9 71 19 151/80 (103) 94 Intake and Output 02/16/20 02/17/20 19:00 07:00 Intake Total 550 ml 1240 ml Output Total 2100 ml 1900 ml Balance -1550 ml -660 ml Intake Oral 550 ml 360 ml IV Total 880 ml Output Urine Total 2100 ml 1900 ml Laboratory Tests Test 02/17/20 04:55 White Blood Count 5.6 K/UL (4.8-10.8) Red Blood Count 5.25 M/UL (4.20-5.40) Hemoglobin 12.8 G/DL (12.0-16.0) Hematocrit 40.9 % (37.0-47.0) Mean Corpuscular Volume 78 FL (80-99) L Mean Corpuscular Hemoglobin 24.3 PG (27.0-31.0) L Mean Corpuscular Hemoglobin Concent 31.3 G/DL (32.0-36.0) L Red Cell Distribution Width 16.4 % (11.6-14.8) H Platelet Count 480 K/UL (150-450) H Mean Platelet Volume 5.1 FL (6.5-10.1) L Neutrophils (%) (Auto) 43.3 % (45.0-75.0) L Lymphocytes (%) (Auto) 38.8 % (20.0-45.0) Monocytes (%) (Auto) 9.7 % (1.0-10.0) Eosinophils (%) (Auto) 5.8 % (0.0-3.0) H Basophils (%) (Auto) 2.4 % (0.0-2.0) H Sodium Level 142 MMOL/L (136-145) Potassium Level 4.2 MMOL/L (3.5-5.1) Chloride Level 108 MMOL/L (98-107) H Carbon Dioxide Level 28 MMOL/L (21-32) Blood Urea Nitrogen 8 mg/dL (7-18) Creatinine 0.6 MG/DL (0.55-1.30) Estimat Glomerular Filtration Rate > 60 mL/min (>60) Glucose Level 97 MG/DL (74-106) Calcium Level 8.8 MG/DL (8.5-10.1) Total Bilirubin 0.2 MG/DL (0.2-1.0) Aspartate Amino Transf (AST/SGOT) 11 U/L (15-37) L Alanine Aminotransferase (ALT/SGPT) 14 U/L (12-78) Alkaline Phosphatase 105 U/L (46-116) Total Protein 5.8 G/DL (6.4-8.2) L Albumin 2.8 G/DL (3.4-5.0) L Globulin 3.0 g/dL Albumin/Globulin Ratio 0.9 (1.0-2.7) L Objective HEAD AND NECK: No JVD. LUNGS: Decreased breath sounds. CARDIOVASCULAR: Regular S1 and S2 with no gallop or murmur. ABDOMEN: Soft. EXTREMITIES: 2+ pitting edema. Chato Oliveira MD Feb 17, 2020 13:23
[2020-02-17 16:00] VITALS: BP 128/65
[2020-02-17] MEDS: Fleet's Enema 133ml RECTAL SCH ×2 (16:00→17:44)
--- NOTE | 2020-02-17 17:59 | General Progress Note ---
Subjective Allergies: Coded Allergies: ACETAMINOPHEN (Unverified Allergy, Unknown, 02/12/20) CODEINE (Unverified Allergy, Unknown, 02/12/20) LISINOPRIL (Verified Allergy, Unknown, 02/01/20) OXYCODONE (Verified Allergy, Unknown, 02/01/20) Subjective Feels OK no new symptoms no choking or vomiting d/w DTR - states patient tends to refuse many MD recommendations Objective Last 24 Hour Vital Signs Date Time Temp Pulse Resp B/P (MAP) Pulse Ox O2 Delivery O2 Flow Rate FiO2 02/17/20 16:00 97.8 98 18 128/65 (86) 98 02/17/20 12:00 97.9 100 18 139/70 (93) 98 02/17/20 09:50 160/88 02/17/20 09:50 92 160/88 02/17/20 09:00 Room Air 02/17/20 08:00 98.0 92 20 160/88 (112) 96 02/17/20 04:00 98.1 78 19 150/79 (102) 97 02/17/20 00:00 98.3 85 20 159/99 (119) 100 02/16/20 21:00 Room Air 02/16/20 20:00 98.4 94 18 152/71 (98) 94 Intake and Output 02/16/20 02/17/20 19:00 07:00 Intake Total 550 ml 1240 ml Output Total 2100 ml 1900 ml Balance -1550 ml -660 ml Intake Oral 550 ml 360 ml IV Total 880 ml Output Urine Total 2100 ml 1900 ml Laboratory Tests 02/17/20 04:55: White Blood Count 5.6, Red Blood Count 5.25, Hemoglobin 12.8, Hematocrit 40.9, Mean Corpuscular Volume 78L, Mean Corpuscular Hemoglobin 24.3L, Mean Corpuscular Hemoglobin Concent 31.3L, Red Cell Distribution Width 16.4H, Platelet Count 480H , Mean Platelet Volume 5.1L, Neutrophils (%) (Auto) 43.3L, Lymphocytes (%) (Auto) 38.8, Monocytes (%) (Auto) 9.7, Eosinophils (%) (Auto) 5.8H, Basophils (%) (Auto) 2.4H, Sodium Level 142, Potassium Level 4.2, Chloride Level 108H, Carbon Dioxide Level 28, Blood Urea Nitrogen 8, Creatinine 0.6, Estimat Glomerular Filtration Rate > 60, Glucose Level 97, Calcium Level 8.8, Total Bilirubin 0.2, Aspartate Amino Transf (AST/SGOT) 11L, Alanine Aminotransferase (ALT/SGPT) 14, Alkaline Phosphatase 105, Total Protein 5.8L, Albumin 2.8L, Globulin 3.0, Albumin/Globulin Ratio 0.9L Height (Feet): 5 Height (Inches): 5.00 Weight (Pounds): 180 Objective Elderly AA woman NCAT supple CTA RR abd soft flat NT Neuro (R) nasreen, dysarthria Assessment/Plan Assessment/Plan: Assessment - (L) hemispheric CVA with resultant dysarthria - markedly dilated esophagus on CT - long standing h/o esophageal stricture, per pt - patient declines EGD - understands indications - HTN - urolithiasis Recommendations - Esophogram pending - no EGD planned per pt refusal - PPI - mechanical soft diet Cristobal Vaughan MD Feb 17, 2020 17:58
--- NOTE | 2020-02-17 18:23 | Infectious Diseases Prog Note ---
Assessment/Plan Assessment/Plan ASSESSMENT AND PLAN: 1. esbl proteus complicated uti with FTT, weakness, + ua - meropenem - day # 3 - d/w primary care team - monitor labs 2. CVA with right-sided weakness and dysarthria. 3. Kidney stone. 4. Urology been consulted. 5. Hypertension. 6. Blood pressure treatment per Dr. Olivas. 7. History of diverticulitis requiring surgery in the past. 8. No history of diabetes or cancer. 9. Monitor for aspiration with history of CVA and right-sided weakness. 10. No evidence or signs and symptoms of COVID-19 infection. 11. Allergies to acetaminophen, lisinopril, and oxycodone. She also told me penicillin, but that is not documented. I am not clear. She tolerated Rocephin. 12. Family history is noncontributory. 13. Social history is negative. 14. MAR is noted. 15. Case was discussed also with the RN. 16. Case discussed with Dr. Olivas. 17. Continue treatment per primary consultants. Subjective Constitutional: Denies: fever HEENT: Denies: congestion Respiratory: Denies: shortness of breath Cardiovascular: Denies: chest pain Gastrointestinal/Abdominal: Denies: nausea, vomiting, diarrhea Genitourinary: Reports: other - no garcia Neurologic: Denies: headache Psychiatric: Reports: other - NA Skin: Denies: rash Hematologic: Denies: bleeding Musculoskeletal: Denies: pain Allergies: Coded Allergies: ACETAMINOPHEN (Unverified Allergy, Unknown, 02/12/20) CODEINE (Unverified Allergy, Unknown, 02/12/20) LISINOPRIL (Verified Allergy, Unknown, 02/01/20) OXYCODONE (Verified Allergy, Unknown, 02/01/20) Objective Last 24 Hour Vital Signs Date Time Temp Pulse Resp B/P (MAP) Pulse Ox O2 Delivery O2 Flow Rate FiO2 02/17/20 16:00 97.8 98 18 128/65 (86) 98 02/17/20 12:00 97.9 100 18 139/70 (93) 98 02/17/20 09:50 160/88 02/17/20 09:50 92 160/88 02/17/20 09:00 Room Air 02/17/20 08:00 98.0 92 20 160/88 (112) 96 02/17/20 04:00 98.1 78 19 150/79 (102) 97 02/17/20 00:00 98.3 85 20 159/99 (119) 100 02/16/20 21:00 Room Air 02/16/20 20:00 98.4 94 18 152/71 (98) 94 Height (Feet): 5 Height (Inches): 5.00 Weight (Pounds): 180 General Appearance: no acute distress HEENT: normocephalic, atraumatic, anicteric, mucous membranes moist Respiratory/Chest: lungs clear, normal breath sounds, no respiratory distress, no accessory muscle use Cardiovascular: normal rate, regular rhythm, no gallop/murmur, no JVD Abdomen: normal bowel sounds, soft, non tender, no organomegaly, non distended Genitourinary: other - no gracia Extremities: no cyanosis Skin: no rash Neurologic/Psychiatric: respiratory care specialist II-XII grossly normal, alert Lymphatic: no neck adenopathy Musculoskeletal: no effusion CTA - Chest: Impression: No evidence of acute pulmonary embolus or other acute thoracic vascular pathology Elevated right hemidiaphragm. Resultant basilar atelectatic changes. No definite infiltrates Borderline cardiomegaly Slight mosaic pulmonary perfusion pattern. There is a broad differential, but possibly on the basis of very mild pulmonary edema Markedly dilated gas and fluid-filled esophagus. Most likely secondary to distal dysmotility, but given the degree of distention the possibility of the downstr eam obstructive lesion should also be considered. Large left humeral head joint effusion. Fairly extensive chronic appearing e rosive changes of the glenoid could be due to degenerative changes, but given the large effusion the possibility of septic arthropathy should also be considered. Correlate with clinical findings and history. Chest x-ray - 02/13/20 - Procedure: XRAY Chest 1v Indication: Shortness of breath Technique: One view of the chest Comparison: none Findings: Inspiration is suboptimal. There is crowding of the bronchovascular markings at the lung bases. The heart size is upper limits of normal. Impression: Hypoventilatory exam. No definite acute abnormality Laboratory Tests Test 02/17/20 04:55 White Blood Count 5.6 K/UL (4.8-10.8) Red Blood Count 5.25 M/UL (4.20-5.40) Hemoglobin 12.8 G/DL (12.0-16.0) Hematocrit 40.9 % (37.0-47.0) Mean Corpuscular Volume 78 FL (80-99) L Mean Corpuscular Hemoglobin 24.3 PG (27.0-31.0) L Mean Corpuscular Hemoglobin Concent 31.3 G/DL (32.0-36.0) L Red Cell Distribution Width 16.4 % (11.6-14.8) H Platelet Count 480 K/UL (150-450) H Mean Platelet Volume 5.1 FL (6.5-10.1) L Neutrophils (%) (Auto) 43.3 % (45.0-75.0) L Lymphocytes (%) (Auto) 38.8 % (20.0-45.0) Monocytes (%) (Auto) 9.7 % (1.0-10.0) Eosinophils (%) (Auto) 5.8 % (0.0-3.0) H Basophils (%) (Auto) 2.4 % (0.0-2.0) H Sodium Level 142 MMOL/L (136-145) Potassium Level 4.2 MMOL/L (3.5-5.1) Chloride Level 108 MMOL/L (98-107) H Carbon Dioxide Level 28 MMOL/L (21-32) Blood Urea Nitrogen 8 mg/dL (7-18) Creatinine 0.6 MG/DL (0.55-1.30) Estimat Glomerular Filtration Rate > 60 mL/min (>60) Glucose Level 97 MG/DL (74-106) Calcium Level 8.8 MG/DL (8.5-10.1) Total Bilirubin 0.2 MG/DL (0.2-1.0) Aspartate Amino Transf (AST/SGOT) 11 U/L (15-37) L Alanine Aminotransferase (ALT/SGPT) 14 U/L (12-78) Alkaline Phosphatase 105 U/L (46-116) Total Protein 5.8 G/DL (6.4-8.2) L Albumin 2.8 G/DL (3.4-5.0) L Globulin 3.0 g/dL Albumin/Globulin Ratio 0.9 (1.0-2.7) L Current Medications Medications (Trade) Dose Ordered Sig/Uriel Route PRN Reason Start Time Stop Time Status Last Admin Dose Admin Clonidine HCl (Catapres Tab) 0.1 mg Q4H PRN ORAL SBP > 160 02/12/20 17:15 05/12/20 17:14 Dextrose/Sodium Chloride 1,000 ml @ 75 mls/hr [id number] IV 02/13/20 23:15 03/14/20 23:14 02/17/20 18:06 Diphenhydramine HCl (Benadryl) 25 mg Q6H PRN ORAL Itching 02/13/20 04:15 03/14/20 04:14 02/17/20 14:56 Docusate Sodium (Colace) 100 mg TWICE A DAY ORAL 02/12/20 18:00 03/13/20 17:59 02/17/20 18:04 Furosemide (Lasix) 40 mg DAILY ORAL 02/15/20 09:00 03/16/20 08:59 02/17/20 09:51 Gabapentin (Neurontin) 300 mg TID@0200,1000,1800 ORAL 02/13/20 02:00 03/14/20 01:59 02/17/20 18:04 Heparin Sodium (Porcine) (Heparin 5000 units/ml) 5,000 units EVERY 12 HOURS SUBQ 02/12/20 21:00 03/28/20 20:59 02/17/20 09:52 Losartan Potassium (Cozaar) 50 mg DAILY ORAL 02/13/20 09:00 03/14/20 08:59 02/17/20 09:50 Meropenem 1 gm/ Sodium Chloride 55 ml @ 110 mls/hr Q12H IVPB 02/15/20 18:00 02/20/20 17:59 02/17/20 18:04 Mirtazapine (Remeron) 15 mg 1900 ORAL 02/16/20 19:00 05/16/20 18:59 02/16/20 18:48 Nifedipine (Procardia XL) 30 mg DAILY ORAL 02/13/20 09:00 03/14/20 08:59 02/17/20 09:50 Pantoprazole (Protonix) 40 mg DAILY ORAL 02/15/20 09:00 03/16/20 08:59 02/17/20 09:50 Polyethylene Glycol (Miralax) 17 gm BEDTIME ORAL 02/12/20 21:00 03/13/20 20:59 02/16/20 20:49 Darrell Alcazar MD Feb 17, 2020 18:23
[2020-02-17 20:00] VITALS: BP 152/82
[2020-02-17] MEDS: Miralax 17gm pkt ORAL SCH (21:19)
[2020-02-18] VITALS: BP 134/57
[2020-02-18] MEDS: D5 1/2NS 1,000 ML IV SCH ×2 (00:15→09:26)
[2020-02-18 04:00] VITALS: BP 158/79
[2020-02-18] MEDS: Meropenem 1gm in NS 55ml IVPB SCH ×2 (05:22→18:29)
[2020-02-18 06:00] LABS: BASOPHILS % (AUTO) 2.8 % (0.0-2.0); EOSINOPHILS % (AUTO) 6.6 % (0.0-3.0); HEMATOCRIT 40.4 % (37.0-47.0); HEMOGLOBIN 12.6 G/DL (12.0-16.0); LYMPHOCYTES % (AUTO) 40.9 % (20.0-45.0); MEAN CORPUSCULAR VOLUME 78 FL (80-99); NEUTROPHILS % (AUTO) 41.7 % (45.0-75.0); PLATELET COUNT 475 K/UL (150-450); RED CELL DISTRIBUTION WIDTH 15.7 % (11.6-14.8); WHITE BLOOD COUNT 5.4 K/UL (4.8-10.8)
[2020-02-18 06:19] LABS: ALANINE AMINOTRANSFERASE 12 U/L (12-78); ALBUMIN 2.6 G/DL (3.4-5.0); ALBUMIN/GLOBULIN RATIO 0.7 (1.0-2.7); ALKALINE PHOSPHATASE 99 U/L (46-116); ANION GAP 7 mmol/L (5-15); ASPARTATE AMINO TRANSFERASE 12 U/L (15-37); BILIRUBIN,TOTAL 0.2 MG/DL (0.2-1.0); BLOOD UREA NITROGEN 9 mg/dL (7-18); CALCIUM 8.4 MG/DL (8.5-10.1); CARBON DIOXIDE 28 MMOL/L (21-32); CHLORIDE 109 MMOL/L (98-107); CREATININE 0.6 MG/DL (0.55-1.30); POTASSIUM 3.9 MMOL/L (3.5-5.1); SODIUM 144 MMOL/L (136-145)
[2020-02-18 08:00] VITALS: BP 128/101
[2020-02-18] MEDS: Furosemide 40mg tab ORAL SCH (09:20)
[2020-02-18] MEDS: Losartan 50mg tab ORAL SCH (09:20)
[2020-02-18] MEDS: Docusate 100mg cap ORAL SCH ×2 (09:20→18:29)
[2020-02-18] MEDS: Heparin 5000 units/ml inj SUBQ SCH ×2 (09:22→21:05)
--- NOTE | 2020-02-18 10:08 | Pulmonology Progress Note ---
Simona Rios [employer] 02/18/20 1007: Subjective ROS Limited/Unobtainable: Yes Constitutional: Denies: fever Gastrointestinal/Abdominal: Denies: nausea, vomiting, diarrhea Psychiatric: Reports: other - NA Skin: Denies: rash Musculoskeletal: Denies: pain Allergies: Coded Allergies: ACETAMINOPHEN (Unverified Allergy, Unknown, 02/12/20) CODEINE (Unverified Allergy, Unknown, 02/12/20) LISINOPRIL (Verified Allergy, Unknown, 02/01/20) OXYCODONE (Verified Allergy, Unknown, 02/01/20) All Systems: reviewed and negative except above Subjective afebrile, no leukocytosis denies CP, SOB. no dysuria + c/o R sided abd pain esophagram for this am pending, NPO UCX + Proteus RSBL labs remains stable Objective Last 24 Hour Vital Signs Date Time Temp Pulse Resp B/P (MAP) Pulse Ox O2 Delivery O2 Flow Rate FiO2 02/18/20 09:20 128/101 02/18/20 09:19 81 128/101 02/18/20 04:00 98.2 86 18 158/79 (105) 96 02/18/20 00:00 98.4 90 18 134/57 (82) 95 02/17/20 20:13 Room Air 02/17/20 20:00 98.8 86 18 152/82 (105) 96 02/17/20 16:00 97.8 98 18 128/65 (86) 98 02/17/20 12:00 97.9 100 18 139/70 (93) 98 Intake and Output 02/17/20 02/18/20 19:00 07:00 Intake Total 1560 ml 480 ml Output Total 1900 ml 900 ml Balance -340 ml -420 ml Intake Oral 960 ml 480 ml IV Total 600 ml Output Urine Total 1900 ml 900 ml # Bowel Movements 1 General Appearance: no acute distress, other - awake, alert, rsponsive bedridden AA female with dysarthric speech HEENT: normocephalic, atraumatic, anicteric, mucous membranes moist, EOMI, supple, no JVD Respiratory: chest wall non-tender, lungs clear, no respiratory distress, no accessory muscle use Cardiovascular: normal peripheral pulses, normal rate, no JVD Abdomen: normal bowel sounds, soft, non tender, non distended Extremities: no edema, pedal pulses normal Skin: other - patches of vitiligo BLE, sacral area DTI POA Neurologic: abnormal gait, alert, responsive, other - dysarthric, R side hemiparesis Musculoskeletal: atrophy - BLE Laboratory Tests 02/18/20 04:50: White Blood Count 5.4, Red Blood Count 5.20, Hemoglobin 12.6, Hematocrit 40.4, Mean Corpuscular Volume 78L, Mean Corpuscular Hemoglobin 24.3L, Mean Corpuscular Hemoglobin Concent 31.3L, Red Cell Distribution Width 15.7H, Platelet Count 475H , Mean Platelet Volume 5.4L, Neutrophils (%) (Auto) 41.7L, Lymphocytes (%) (Auto) 40.9, Monocytes (%) (Auto) 8.0, Eosinophils (%) (Auto) 6.6H, Basophils (%) (Auto) 2.8H, Sodium Level 144, Potassium Level 3.9, Chloride Level 109H, Carbon Dioxide Level 28, Anion Gap 7, Blood Urea Nitrogen 9, Creatinine 0.6, Estimat Glomerular Filtration Rate > 60, Glucose Level 96, Calcium Level 8.4L, Total Bilirubin 0.2, Aspartate Amino Transf (AST/SGOT) 12L, Alanine Aminotransferase (ALT/SGPT) 12, Alkaline Phosphatase 99, Total Protein 6.1L, Albumin 2.6L, Globulin 3.5, Albumin/Globulin Ratio 0.7L Current Medications Medications (Trade) Dose Ordered Sig/Uriel Route PRN Reason Start Time Stop Time Status Last Admin Dose Admin Clonidine HCl (Catapres Tab) 0.1 mg Q4H PRN ORAL SBP > 160 02/12/20 17:15 05/12/20 17:14 Dextrose/Sodium Chloride 1,000 ml @ 75 mls/hr [id number] IV 02/13/20 23:15 03/14/20 23:14 02/18/20 09:26 Diphenhydramine HCl (Benadryl) 25 mg Q6H PRN ORAL Itching 02/13/20 04:15 03/14/20 04:14 02/17/20 14:56 Docusate Sodium (Colace) 100 mg TWICE A DAY ORAL 02/12/20 18:00 03/13/20 17:59 02/18/20 09:20 Furosemide (Lasix) 40 mg DAILY ORAL 02/15/20 09:00 03/16/20 08:59 02/18/20 09:20 Gabapentin (Neurontin) 300 mg TID@0200,1000,1800 ORAL 02/13/20 02:00 03/14/20 01:59 02/18/20 09:19 Heparin Sodium (Porcine) (Heparin 5000 units/ml) 5,000 units EVERY 12 HOURS SUBQ 02/12/20 21:00 03/28/20 20:59 02/18/20 09:22 Losartan Potassium (Cozaar) 50 mg DAILY ORAL 02/13/20 09:00 03/14/20 08:59 02/18/20 09:20 Meropenem 1 gm/ Sodium Chloride 55 ml @ 110 mls/hr Q12H IVPB 02/15/20 18:00 02/20/20 17:59 02/18/20 05:22 Mirtazapine (Remeron) 15 mg 1900 ORAL 02/16/20 19:00 05/16/20 18:59 02/17/20 19:27 Nifedipine (Procardia XL) 30 mg DAILY ORAL 02/13/20 09:00 03/14/20 08:59 02/18/20 09:19 Pantoprazole (Protonix) 40 mg DAILY ORAL 02/15/20 09:00 03/16/20 08:59 02/18/20 09:20 Polyethylene Glycol (Miralax) 17 gm BEDTIME ORAL 02/12/20 21:00 03/13/20 20:59 02/17/20 21:19 Assessment/Plan Assessment/Plan ASSESSMENT/PROBLEM LIST: * FTT * Recurrent UTI, now with ESBL Proteus with hx of recent UTI * Nephrolithiasis * 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 No acute thoracic vascular pathology Noted Markedly dilated gas and fluid-filled esophagus. Most likely secondary to distal dysmotility, but given the degree of distention the possibility of the downstream obstructive lesion should also be considered. * GI eval appreciated, pt declined EGD, * per GI will get esophagram - pending ; NPO for test * pain management ; symptomatic Rx * Ucx+ Proteus ESBL ,dc Ceftriaxone and start meropenem , discussed with ID, who follows * BP control, continue Nifedipine, add Lisinopril , Lasix + PRN Clonidine, optimize further as needed-per cardio recs * second troponin negative as well, TTE with pEF * TSH wnl * cardio eval appreciated * Venous Duplex BLE-NGT; D-dimer -2.3 * Monitor volumes and renal function, replace lytes as needed * Aspiration precautions , BSSE completed, diet texture as per ST recs with aspiration precautions * MRI brain no acute IC pathology * CTA also revealed L shoulder effusion on CT-A, , X ray shoulder 3 views-> with severe degenerative changes, no acute bony abnormalities * ortho dr Silver seen and evaluated, severe degenerative changes L shoulder, needs shoulder replacement * DVT Px: Hep SQ * PT eval and Rx * bowel regimen * wound care as per surgery recs, * FC * Dispo planning to SNF: [facility] or [facility] patient declined SNF placement, * clearly unable to care for herself, * caregiver economics department chair only ; will speak with family * supervising physician D/W daughter, pt needs 24 h care at home, patient declining SNF; * psych eval appreciated; pt lacks mental capacity to make informed decision , pt needs 24 caregiver at home or SNF ; started pt on Remeron * ongoing discussion re placement, will need to set up family conference to discuss placement and further GOC case discussed and evaluated by supervising physician Contreras Olivas MD 02/18/20 1506: Subjective Allergies: Coded Allergies: ACETAMINOPHEN (Unverified Allergy, Unknown, 02/12/20) CODEINE (Unverified Allergy, Unknown, 02/12/20) LISINOPRIL (Verified Allergy, Unknown, 02/01/20) OXYCODONE (Verified Allergy, Unknown, 02/01/20) Assessment/Plan Assessment/Plan Patient seen and examined with [employer]. Agree with above A&P as it reflects our joint deliberations. NPO for esophagram, F/U GI recs. Abx per ID Dispo planning, lacks capacity, CM working on SNF Simona Rios [employer] Feb 18, 2020 10:07 Contreras Olivas MD Feb 18, 2020 15:06
--- NOTE | 2020-02-18 10:20 | Cardiac Electrophysiology PN ---
Assessment/Plan Assessment/Plan 1. Accelerated hypertension. On Procardia XL 30 mg daily, Cozaar 50 mg daily and Lasix 40 po daily. On p.r.n. clonidine 0.1 mg. EF 65%. 2. Status post right basal ganglia CVA. 3. History of laparotomy. 4. Failure to thrive. 5. Recent UTI 6. SOB and high D Dimer. Chest CT angio No PE. EF 65% 7. Esophagogram pending. Refused EGD FU Dr Alexus GAONA RN Subjective Subjective Chest CT angio showed no PE. EF 65%. Scheduled for esophagogram and no EGD planned per pt refusal Objective Last 24 Hour Vital Signs Date Time Temp Pulse Resp B/P (MAP) Pulse Ox O2 Delivery O2 Flow Rate FiO2 02/18/20 09:20 128/101 02/18/20 09:19 81 128/101 02/18/20 08:00 98.0 81 20 128/101 (110) 95 02/18/20 04:00 98.2 86 18 158/79 (105) 96 02/18/20 00:00 98.4 90 18 134/57 (82) 95 02/17/20 20:13 Room Air 02/17/20 20:00 98.8 86 18 152/82 (105) 96 02/17/20 16:00 97.8 98 18 128/65 (86) 98 02/17/20 12:00 97.9 100 18 139/70 (93) 98 Intake and Output 02/17/20 02/18/20 19:00 07:00 Intake Total 1560 ml 480 ml Output Total 1900 ml 900 ml Balance -340 ml -420 ml Intake Oral 960 ml 480 ml IV Total 600 ml Output Urine Total 1900 ml 900 ml # Bowel Movements 1 Laboratory Tests Test 02/18/20 04:50 White Blood Count 5.4 K/UL (4.8-10.8) Red Blood Count 5.20 M/UL (4.20-5.40) Hemoglobin 12.6 G/DL (12.0-16.0) Hematocrit 40.4 % (37.0-47.0) Mean Corpuscular Volume 78 FL (80-99) L Mean Corpuscular Hemoglobin 24.3 PG (27.0-31.0) L Mean Corpuscular Hemoglobin Concent 31.3 G/DL (32.0-36.0) L Red Cell Distribution Width 15.7 % (11.6-14.8) H Platelet Count 475 K/UL (150-450) H Mean Platelet Volume 5.4 FL (6.5-10.1) L Neutrophils (%) (Auto) 41.7 % (45.0-75.0) L Lymphocytes (%) (Auto) 40.9 % (20.0-45.0) Monocytes (%) (Auto) 8.0 % (1.0-10.0) Eosinophils (%) (Auto) 6.6 % (0.0-3.0) H Basophils (%) (Auto) 2.8 % (0.0-2.0) H Sodium Level 144 MMOL/L (136-145) Potassium Level 3.9 MMOL/L (3.5-5.1) Chloride Level 109 MMOL/L (98-107) H Carbon Dioxide Level 28 MMOL/L (21-32) Anion Gap 7 mmol/L (5-15) Blood Urea Nitrogen 9 mg/dL (7-18) Creatinine 0.6 MG/DL (0.55-1.30) Estimat Glomerular Filtration Rate > 60 mL/min (>60) Glucose Level 96 MG/DL (74-106) Calcium Level 8.4 MG/DL (8.5-10.1) L Total Bilirubin 0.2 MG/DL (0.2-1.0) Aspartate Amino Transf (AST/SGOT) 12 U/L (15-37) L Alanine Aminotransferase (ALT/SGPT) 12 U/L (12-78) Alkaline Phosphatase 99 U/L (46-116) Total Protein 6.1 G/DL (6.4-8.2) L Albumin 2.6 G/DL (3.4-5.0) L Globulin 3.5 g/dL Albumin/Globulin Ratio 0.7 (1.0-2.7) L Objective HEAD AND NECK: No JVD. LUNGS: Decreased breath sounds. CARDIOVASCULAR: Regular S1 and S2 with no gallop or murmur. ABDOMEN: Soft. EXTREMITIES: 2+ pitting edema. Chato Oliveira MD Feb 18, 2020 10:20
[2020-02-18 12:00] VITALS: BP 141/75
--- NOTE | 2020-02-18 12:15 | Consultation ---
DATE OF CONSULTATION: 02/14/2020 ORTHOPEDIC CONSULTATION CONSULTING PHYSICIAN: Evan Silver MD HISTORY OF PRESENT ILLNESS: Patient is a pleasant 84-year-old female who presents with a complaint of shoulder. During her hospital stay, she was complaining of shoulder symptomatology. Therefore, an x-ray of the shoulder was obtained. Orthopedic consultation was obtained for further care and recommendations. Patient does have pain in the left shoulder. She lives at home. PAST MEDICAL HISTORY: Per the intake chart. PAST SURGICAL HISTORY: Per the intake chart. MEDICATIONS: Per the intake chart. PHYSICAL EXAMINATION: GENERAL: The patient has mild crepitus. Limited shoulder motion. Neuro normal. Radial pulses +2. Imaging studies today show advanced osteoarthritis of the left shoulder. ASSESSMENT: Left shoulder osteoarthritis. DISCUSSION: At this point, what I recommend is conservative treatment. Additionally, she has moderate end-stage osteoarthritis with significant spurs. Unfortunately, her options are limited. What I recommend is antiinflammatories and activity modifications. There is no restriction. c Consideration for total shoulder replacement which at her age would not be reasonable to consider. Evan Silver M.D. DR: DRU JOB#: [id number] CC: ZELDA
[2020-02-18] MEDS ORDERED: Varibar Thin Liquid powder 148gm MC PRN (14:00)
[2020-02-18] MEDS ORDERED: Varibar Nectar 240ml MC PRN (14:00)
[2020-02-18] MEDS ORDERED: Varibar Honey 250ml MC PRN (14:00)
[2020-02-18] MEDS ORDERED: Varibar Pudding 230ml MC PRN (14:00)
[2020-02-18 16:00] VITALS: BP 151/79
--- NOTE | 2020-02-18 17:52 | Diagnostic Imaging Report ---
INDICATION: Dilated esophagus demonstrated on prior CT scan TECHNIQUE: Fluoroscopic imaging with C-arm while patient and liquid barium Fluoroscopy time: 183 seconds Total dose: 1.43 mGym2 Total number of images: 15 COMPARISON: None FINDINGS: Exam is limited due to the availability of only a C-arm, limited patient mobility. The esophagus is markedly dilated. It appears fairly atonic. Contrast is occasionally seen to enter passed through the distal esophageal sphincter into the stomach. No definite mucosal irregularity or stricture demonstrated. The stomach is grossly normal. IMPRESSION: Very limited exam, as described Dilated atonic esophagus. Only intermittent flow through the distal esophageal sphincter noted. 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 No definite stricture or mucosal irregularity to suggest mass.
[2020-02-18 20:00] VITALS: BP 156/91
[2020-02-18] MEDS: Miralax 17gm pkt ORAL SCH (21:03)
--- NOTE | 2020-02-18 21:05 | Surgery Progress Note ---
Surgery Progress Note Subjective Symptoms: improved, tolerating diet, passing flatus Objective Last 24 Hour Vital Signs Date Time Temp Pulse Resp B/P (MAP) Pulse Ox O2 Delivery O2 Flow Rate FiO2 02/18/20 16:00 97.8 86 19 151/79 (103) 96 02/18/20 12:00 98.0 78 17 141/75 (97) 95 02/18/20 09:20 128/101 02/18/20 09:19 81 128/101 02/18/20 09:00 Room Air 02/18/20 08:00 98.0 81 20 128/101 (110) 95 02/18/20 04:00 98.2 86 18 158/79 (105) 96 02/18/20 00:00 98.4 90 18 134/57 (82) 95 I&O Intake and Output 02/17/20 02/18/20 19:00 07:00 Intake Total 1560 ml 480 ml Output Total 1900 ml 900 ml Balance -340 ml -420 ml Intake Oral 960 ml 480 ml IV Total 600 ml Output Urine Total 1900 ml 900 ml # Bowel Movements 1 Dressing: dry Wound: clean Cardiovascular: RSR Respiratory: clear Abdomen: soft, non-tender, present bowel sounds Extremities: no edema, no tenderness, no cyanosis Laboratory Tests Test 02/18/20 04:50 White Blood Count 5.4 K/UL (4.8-10.8) Red Blood Count 5.20 M/UL (4.20-5.40) Hemoglobin 12.6 G/DL (12.0-16.0) Hematocrit 40.4 % (37.0-47.0) Mean Corpuscular Volume 78 FL (80-99) L Mean Corpuscular Hemoglobin 24.3 PG (27.0-31.0) L Mean Corpuscular Hemoglobin Concent 31.3 G/DL (32.0-36.0) L Red Cell Distribution Width 15.7 % (11.6-14.8) H Platelet Count 475 K/UL (150-450) H Mean Platelet Volume 5.4 FL (6.5-10.1) L Neutrophils (%) (Auto) 41.7 % (45.0-75.0) L Lymphocytes (%) (Auto) 40.9 % (20.0-45.0) Monocytes (%) (Auto) 8.0 % (1.0-10.0) Eosinophils (%) (Auto) 6.6 % (0.0-3.0) H Basophils (%) (Auto) 2.8 % (0.0-2.0) H Sodium Level 144 MMOL/L (136-145) Potassium Level 3.9 MMOL/L (3.5-5.1) Chloride Level 109 MMOL/L (98-107) H Carbon Dioxide Level 28 MMOL/L (21-32) Anion Gap 7 mmol/L (5-15) Blood Urea Nitrogen 9 mg/dL (7-18) Creatinine 0.6 MG/DL (0.55-1.30) Estimat Glomerular Filtration Rate > 60 mL/min (>60) Glucose Level 96 MG/DL (74-106) Calcium Level 8.4 MG/DL (8.5-10.1) L Total Bilirubin 0.2 MG/DL (0.2-1.0) Aspartate Amino Transf (AST/SGOT) 12 U/L (15-37) L Alanine Aminotransferase (ALT/SGPT) 12 U/L (12-78) Alkaline Phosphatase 99 U/L (46-116) Total Protein 6.1 G/DL (6.4-8.2) L Albumin 2.6 G/DL (3.4-5.0) L Globulin 3.5 g/dL Albumin/Globulin Ratio 0.7 (1.0-2.7) L Plan Problems: (1) Decubitus skin ulcer Assessment & Plan: Pt presented on admission with Full thickness Pressure Injury Sacrum/R Buttocks. Base of wound is moist,lindsey with scattered areas of Slough, and Biofilm, Borders are irregular. Small amt serosanguineous exudate.(L)7cm x (W)7.5cm x(D)0.2cm. Surrounding non-blanchable erythema with additional shearing periwound. Unstageable Pressure Injury Cleft of Buttocks(L)2.5cm x (W)0.9cm. Base of Pressure Injury is 95% slough,5% lindsey with surrounding non-blanching erythema. Scattered epithelial and hyperpigmentation noted to L buttocks. R lower extremity internally rotated. Xerosis skin Bilat lower ext. An area of hyperpigmentation noted to R tibia. Both heels are non-blanchable but wihtou fluctuance. Pt complained both heels are tender to minimal touch. Tx.Plan: Cleanse wounds Buttocks with Saline. Apply Therahoney . Apply Moisture Barrier Paste Periwound. Cover with Optifoam drsg. Change every 3 days and prn. Moisturize Both lower ext with Phytoplex Lotion. Apply Cavilon Skin Barrier to both heels and Malleoli. Cover each site with Optifoam drsg. Change every 7 days and prn. Reposition at least every 2hours or as tolerated. Off-load heels with Pillow. Pulmonary arteries are well-opacified. No definite intraluminal filling defects or other findings to suggest pulmonary emboli are demonstrated. Normal caliber pulmonary arteries. No evidence of thoracic aortic aneurysm or dissection. No evidence of right ventricular dilatation. The lungs demonstrate a slight mosaic perfusion pattern. There is elevation of the right hemidiaphragm. This results in atelectatic changes of the base of the right lower lobe. There is also some crowding of the bronchovascular markings in the left lower lobe. No definite infiltrates, effusions, masses, or nodules are demonstrated. The esophagus is markedly dilated gas-filled proximally, fluid-filled distally. The dilatation appears to extend to the distal esophagus. The heart is borderline enlarged. No pericardial effusion demonstrated. No mediastinal or hilar mass or adenopathy. The thyroid demonstrates a 19 mm low-attenuation lesion in the lower pole of the left lobe. No axillary or chest wall mass or adenopathy. There appears to be a very large joint effusion surrounding the left humeral head. There are chronic appearing erosive changes of the limit and to a lesser extent the humeral head. No axillary or chest wall mass or adenopathy. There is degenerative spondylosis noted. The included upper abdominal anatomy is unremarkable. Impression: No evidence of acute pulmonary embolus or other acute thoracic vascular pathology Elevated right hemidiaphragm. Resultant basilar atelectatic changes. No definite infiltrates Borderline cardiomegaly Slight mosaic pulmonary perfusion pattern. There is a broad differential, but possibly on the basis of very mild pulmonary edema Markedly dilated gas and fluid-filled esophagus. Most likely secondary to distal dysmotility, but given the degree of distention the possibility of the downstream obstructive lesion should also be considered. Large left humeral head joint effusion. Fairly extensive chronic appearing erosive changes of the glenoid could be due to degenerative changes, but given the large effusion the possibility of septic arthropathy should also be considered. Correlate with clinical findings and history. Findings discussed by phone with Dr. Olivas at the time of interpretation (2) Nephrolithiasis (3) UTI (urinary tract infection) (4) FTT (failure to thrive) in adult Assessment & Plan: DAILY ESTIMATED NEEDS: Needs based on Wound, obese, cardiac 63.6abw 25-30 kcals/kg 5255-1471 total kcals 1.25-1.5 g protein/kg 80-95 g total protein Fluid per MD, on lasix NUTRITION DIAGNOSIS: Decreased sodium needs r/t h/o CVA as evidenced by pt w/ HTN, elev BP on adm, now on lasix. CURRENT DIET: Regular diet, ms finely chopped PO DIET RECOMMENDATIONS: LOW NA DIET (texture per INSPECTOR AND HAND PACKAGER) ADDITIONAL RECOMMENDATIONS: 1) Maintain calibrated bed scale wts 2) Monitor for continued good po intake 3) F/up w/ WC eval 4) Monitor lytes daily on lasix 5) F/up w/ PO intake, need for snacks, supplements Aaron Thomas Feb 18, 2020 21:05
--- NOTE | 2020-02-18 21:17 | General Progress Note ---
Subjective Allergies: Coded Allergies: ACETAMINOPHEN (Unverified Allergy, Unknown, 02/12/20) CODEINE (Unverified Allergy, Unknown, 02/12/20) LISINOPRIL (Verified Allergy, Unknown, 02/01/20) OXYCODONE (Verified Allergy, Unknown, 02/01/20) Subjective Feels OK no new symptoms no choking or vomiting Esophogram noted --> achalasia type anatomy Objective Last 24 Hour Vital Signs Date Time Temp Pulse Resp B/P (MAP) Pulse Ox O2 Delivery O2 Flow Rate FiO2 02/18/20 16:00 97.8 86 19 151/79 (103) 96 02/18/20 12:00 98.0 78 17 141/75 (97) 95 02/18/20 09:20 128/101 02/18/20 09:19 81 128/101 02/18/20 09:00 Room Air 02/18/20 08:00 98.0 81 20 128/101 (110) 95 02/18/20 04:00 98.2 86 18 158/79 (105) 96 02/18/20 00:00 98.4 90 18 134/57 (82) 95 Intake and Output 02/17/20 02/18/20 19:00 07:00 Intake Total 1560 ml 480 ml Output Total 1900 ml 900 ml Balance -340 ml -420 ml Intake Oral 960 ml 480 ml IV Total 600 ml Output Urine Total 1900 ml 900 ml # Bowel Movements 1 Laboratory Tests 02/18/20 04:50: White Blood Count 5.4, Red Blood Count 5.20, Hemoglobin 12.6, Hematocrit 40.4, Mean Corpuscular Volume 78L, Mean Corpuscular Hemoglobin 24.3L, Mean Corpuscular Hemoglobin Concent 31.3L, Red Cell Distribution Width 15.7H, Platelet Count 475H , Mean Platelet Volume 5.4L, Neutrophils (%) (Auto) 41.7L, Lymphocytes (%) (Auto) 40.9, Monocytes (%) (Auto) 8.0, Eosinophils (%) (Auto) 6.6H, Basophils (%) (Auto) 2.8H, Sodium Level 144, Potassium Level 3.9, Chloride Level 109H, Carbon Dioxide Level 28, Anion Gap 7, Blood Urea Nitrogen 9, Creatinine 0.6, Estimat Glomerular Filtration Rate > 60, Glucose Level 96, Calcium Level 8.4L, Total Bilirubin 0.2, Aspartate Amino Transf (AST/SGOT) 12L, Alanine Aminotransferase (ALT/SGPT) 12, Alkaline Phosphatase 99, Total Protein 6.1L, Albumin 2.6L, Globulin 3.5, Albumin/Globulin Ratio 0.7L Height (Feet): 5 Height (Inches): 5.00 Weight (Pounds): 180 Objective Elderly AA woman NCAT supple CTA RR abd soft flat NT Neuro (R) nasreen, dysarthria Assessment/Plan Assessment/Plan: Assessment - (L) hemispheric CVA with resultant dysarthria - markedly dilated esophagus on CT - Possibly achalasia - patient declines EGD - understands indications - HTN - urolithiasis Recommendations - no EGD planned per pt refusal - PPI - mechanical soft diet - d/c planning Cristobal Vaughan MD Feb 18, 2020 21:16
--- NOTE | 2020-02-18 22:46 | Psych Consult Progress Note ---
Psychiatry Progress Note Psychiatry Progress Note Subjective the pt is the same. she perseverated that wants to go home poor memory poor insight irrational Medications Current Medications Medications (Trade) Dose Ordered Sig/Uriel Route PRN Reason Start Time Stop Time Status Last Admin Dose Admin Barium Sulfate (Varibar Honey) 250 ml NOW PRN RAD 02/18/20 14:00 02/20/20 13:59 Barium Sulfate (Varibar [place]) 240 ml NOW PRN RAD 02/18/20 14:00 02/20/20 13:59 Barium Sulfate (Varibar Pudding) 230 ml NOW PRN RAD 02/18/20 14:00 02/20/20 13:59 Barium Sulfate (Varibar Thin Liquid powder) 148 gm NOW PRN RAD 02/18/20 14:00 02/20/20 13:59 Clonidine HCl (Catapres Tab) 0.1 mg Q4H PRN ORAL SBP > 160 02/12/20 17:15 05/12/20 17:14 Dextrose/Sodium Chloride 1,000 ml @ 75 mls/hr [id number] IV 02/13/20 23:15 03/14/20 23:14 02/18/20 09:26 Diphenhydramine HCl (Benadryl) 25 mg Q6H PRN ORAL Itching 02/13/20 04:15 03/14/20 04:14 02/17/20 14:56 Docusate Sodium (Colace) 100 mg TWICE A DAY ORAL 02/12/20 18:00 03/13/20 17:59 02/18/20 18:29 Furosemide (Lasix) 40 mg DAILY ORAL 02/15/20 09:00 03/16/20 08:59 02/18/20 09:20 Gabapentin (Neurontin) 300 mg TID@0200,1000,1800 ORAL 02/13/20 02:00 03/14/20 01:59 02/18/20 18:31 Heparin Sodium (Porcine) (Heparin 5000 units/ml) 5,000 units EVERY 12 HOURS SUBQ 02/12/20 21:00 03/28/20 20:59 02/18/20 21:05 Losartan Potassium (Cozaar) 50 mg DAILY ORAL 02/13/20 09:00 03/14/20 08:59 02/18/20 09:20 Meropenem 1 gm/ Sodium Chloride 55 ml @ 110 mls/hr Q12H IVPB 02/15/20 18:00 02/20/20 17:59 02/18/20 18:29 Mirtazapine (Remeron) 15 mg 1900 ORAL 02/16/20 19:00 05/16/20 18:59 02/18/20 18:29 Nifedipine (Procardia XL) 30 mg DAILY ORAL 02/13/20 09:00 03/14/20 08:59 02/18/20 09:19 Pantoprazole (Protonix) 40 mg DAILY ORAL 02/15/20 09:00 03/16/20 08:59 02/18/20 09:20 Polyethylene Glycol (Miralax) 17 gm BEDTIME ORAL 02/12/20 21:00 03/13/20 20:59 02/18/20 21:03 Neurological/Psychiatric: Reports: anxiety Allergies: Coded Allergies: ACETAMINOPHEN (Unverified Allergy, Unknown, 02/12/20) CODEINE (Unverified Allergy, Unknown, 02/12/20) LISINOPRIL (Verified Allergy, Unknown, 02/01/20) OXYCODONE (Verified Allergy, Unknown, 02/01/20) Objective Data Height (Feet): 5 Height (Inches): 5.00 Weight (Pounds): 180 Additional Comments: alert, oriented times self, place, and situation. Mood is anxious. Affect is blunted. Congruent mood. Thought process is concrete. Thought content, no suicidal or homicidal ideation. Cognition is impaired. Insight and judgment is impaired. Assessment/Plan Assessment/Plan: [place] I Anxiety disorder. Vascular dementia. [place] II Deferred. [place] III CVA. Failure to thrive. [place] IV Moderate. [place] V 20. PLAN: 1. The patient lacks capacity to make decision. She is very irrational, unable to understand the risks versus benefits of the situation she is in and recommendation given to her. 2. We will start the Remeron 15 mg for weight loss and failure to thrive. 3. The patient will benefit from SNF or 24-hour care at home. Kalen Andrade MD Feb 18, 2020 22:45
[2020-02-19] VITALS: BP 145/76
[2020-02-19 04:00] VITALS: BP 122/82
[2020-02-19] MEDS: Meropenem 1gm in NS 55ml IVPB SCH (05:37)
[2020-02-19 08:00] VITALS: BP 127/69
[2020-02-19] MEDS: Docusate 100mg cap ORAL SCH (08:48)
[2020-02-19] MEDS: Furosemide 40mg tab ORAL SCH (08:48)
[2020-02-19] MEDS: Losartan 50mg tab ORAL SCH (08:48)
[2020-02-19] MEDS: Heparin 5000 units/ml inj SUBQ SCH (08:51)
--- NOTE | 2020-02-19 09:49 | Pulmonology Progress Note ---
Simona Rios INFORMATION SECURITY CONSULTANT 02/19/20 0949: Subjective ROS Limited/Unobtainable: Yes Constitutional: Denies: fever Gastrointestinal/Abdominal: Denies: nausea, vomiting, diarrhea Psychiatric: Reports: other - NA Skin: Denies: rash Musculoskeletal: Denies: pain Allergies: Coded Allergies: ACETAMINOPHEN (Unverified Allergy, Unknown, 02/12/20) CODEINE (Unverified Allergy, Unknown, 02/12/20) LISINOPRIL (Verified Allergy, Unknown, 02/01/20) OXYCODONE (Verified Allergy, Unknown, 02/01/20) All Systems: reviewed and negative except above Subjective afebrile, no leukocytosis denies CP, SOB. no dysuria esophagram NGT UCX + Proteus RSBL labs remains stable Objective Last 24 Hour Vital Signs Date Time Temp Pulse Resp B/P (MAP) Pulse Ox O2 Delivery O2 Flow Rate FiO2 02/19/20 09:00 Room Air 02/19/20 08:48 127/69 02/19/20 08:47 99 127/69 02/19/20 08:00 98.7 99 20 127/69 (88) 94 02/19/20 04:00 99.1 101 19 122/82 (95) 97 02/19/20 00:00 98.6 90 18 145/76 (99) 97 02/18/20 21:00 Room Air 02/18/20 20:00 99.3 104 19 156/91 (112) 96 02/18/20 16:00 97.8 86 19 151/79 (103) 96 02/18/20 12:00 98.0 78 17 141/75 (97) 95 Intake and Output 02/18/20 02/19/20 19:00 07:00 Intake Total 350 ml 195 ml Output Total 1800 ml 400 ml Balance -1450 ml -205 ml Intake Oral 350 ml 120 ml IV Total 75 ml Output Urine Total 1800 ml 400 ml # Bowel Movements 1 General Appearance: no acute distress, other - awake, alert, rsponsive bedridden AA female with dysarthric speech HEENT: normocephalic, atraumatic, anicteric, mucous membranes moist, EOMI, supple, no JVD Respiratory: chest wall non-tender, lungs clear, no respiratory distress, no accessory muscle use Cardiovascular: normal peripheral pulses, normal rate, no JVD Abdomen: normal bowel sounds, soft, non tender, non distended Extremities: no edema, pedal pulses normal Skin: other - patches of vitiligo BLE, sacral area DTI POA Neurologic: abnormal gait, alert, responsive, other - dysarthric, R side hemiparesis Musculoskeletal: atrophy - BLE Current Medications Medications (Trade) Dose Ordered Sig/Uriel Route PRN Reason Start Time Stop Time Status Last Admin Dose Admin Barium Sulfate (Varibar Honey) 250 ml NOW PRN RAD 02/18/20 14:00 02/20/20 13:59 Barium Sulfate (Varibar [place]) 240 ml NOW PRN MC RAD 02/18/20 14:00 02/20/20 13:59 Barium Sulfate (Varibar Pudding) 230 ml NOW PRN RAD 02/18/20 14:00 02/20/20 13:59 Barium Sulfate (Varibar Thin Liquid powder) 148 gm NOW PRN RAD 02/18/20 14:00 02/20/20 13:59 Clonidine HCl (Catapres Tab) 0.1 mg Q4H PRN ORAL SBP > 160 02/12/20 17:15 05/12/20 17:14 Dextrose/Sodium Chloride 1,000 ml @ 75 mls/hr [id number] IV 02/13/20 23:15 03/14/20 23:14 02/18/20 00:15 Diphenhydramine HCl (Benadryl) 25 mg Q6H PRN ORAL Itching 02/13/20 04:15 03/14/20 04:14 02/19/20 09:38 Docusate Sodium (Colace) 100 mg TWICE A DAY ORAL 02/12/20 18:00 03/13/20 17:59 02/19/20 08:48 Furosemide (Lasix) 40 mg DAILY ORAL 02/15/20 09:00 03/16/20 08:59 02/19/20 08:48 Gabapentin (Neurontin) 300 mg TID@0200,1000,1800 ORAL 02/13/20 02:00 03/14/20 01:59 02/19/20 09:27 Heparin Sodium (Porcine) (Heparin 5000 units/ml) 5,000 units EVERY 12 HOURS SUBQ 02/12/20 21:00 03/28/20 20:59 02/19/20 08:51 Losartan Potassium (Cozaar) 50 mg DAILY ORAL 02/13/20 09:00 03/14/20 08:59 02/19/20 08:48 Meropenem 1 gm/ Sodium Chloride 55 ml @ 110 mls/hr Q12H IVPB 02/15/20 18:00 02/20/20 17:59 02/19/20 05:37 Mirtazapine (Remeron) 15 mg 1900 ORAL 02/16/20 19:00 05/16/20 18:59 02/18/20 18:29 Nifedipine (Procardia XL) 30 mg DAILY ORAL 02/13/20 09:00 03/14/20 08:59 02/19/20 08:47 Pantoprazole (Protonix) 40 mg DAILY ORAL 02/15/20 09:00 03/16/20 08:59 02/19/20 08:48 Polyethylene Glycol (Miralax) 17 gm BEDTIME ORAL 02/12/20 21:00 03/13/20 20:59 02/18/20 21:03 Assessment/Plan Assessment/Plan ASSESSMENT/PROBLEM LIST: * FTT * Recurrent UTI, now with ESBL Proteus with hx of recent UTI * Nephrolithiasis * 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 * HTN with initial HTN urgency * Leg pain * Constipation * Sacral DTI, POA * dysmotility vs lesion ( as per imaging) -likely achalasia * L shoulder effusion (on CTA), severe degenerative changes DJD L shoulder PLAN: * MS floor * IVF hydration * CT A/P noted * CTA no PE. No acute thoracic vascular pathology Noted Markedly dilated gas and fluid-filled esophagus. Most likely secondary to distal dysmotility, but given the degree of distention the possibility of the downstream obstructive lesion should also be considered. * GI eval appreciated, pt declined EGD, * per GI will get esophagram -NGT, no stricture, no mass * pain management ; symptomatic Rx * Ucx+ Proteus ESBL ,dc Ceftriaxone and start meropenem , discussed with ID, who follows * BP control, continue Nifedipine, add Lisinopril , Lasix + PRN Clonidine, optimize further as needed-per cardio recs * second troponin negative as well, TTE with pEF * TSH wnl * cardio eval appreciated * Venous Duplex BLE-NGT; D-dimer -2.3 * Monitor volumes and renal function, replace lytes as needed * Aspiration precautions , BSSE completed, diet texture as per ST recs with aspiration precautions * MRI brain no acute IC pathology * CTA also revealed L shoulder effusion on CT-A, , X ray shoulder 3 views-> with severe degenerative changes, no acute bony abnormalities * ortho dr Silver seen and evaluated, severe degenerative changes L shoulder, needs shoulder replacement * DVT Px: Hep SQ * PT eval and Rx * bowel regimen * wound care as per surgery recs, * FC * Dispo planning to SNF: [facility] or [facility] patient declined SNF placement, * clearly unable to care for herself, * caregiver extruding department supervisor only ; will speak with family * supervising physician D/W daughter, pt needs 24 h care at home, patient declining SNF; * psych eval appreciated; pt lacks mental capacity to make informed decision , pt needs 24 caregiver at home or SNF ; started pt on Remeron * family agreed to SNF placement - [facility] * dc today , * continue abx to complete the course discussed with ID - dc with ID additional 3 days case discussed and evaluated by supervising physician Contreras Olivas MD 02/19/20 1206: Subjective Allergies: Coded Allergies: ACETAMINOPHEN (Unverified Allergy, Unknown, 02/12/20) CODEINE (Unverified Allergy, Unknown, 02/12/20) LISINOPRIL (Verified Allergy, Unknown, 02/01/20) OXYCODONE (Verified Allergy, Unknown, 02/01/20) Assessment/Plan Assessment/Plan Patient seen and examined with INFORMATION SECURITY CONSULTANT. Agree with above A&P as it reflects our joint deliberations. Dispo planning to SNF Simona Rios NP Feb 19, 2020 09:49 Contreras Olivas MD Feb 19, 2020 12:06
[2020-02-19] MEDS ORDERED: COZAAR50 MG ORAL (10:02)
[2020-02-19] MEDS ORDERED: MIRTAZAPINE15 M3 ORAL (10:02)
[2020-02-19] MEDS ORDERED: PANTOPRAZOLE SO40 MG ORAL (10:02)
[2020-02-19] MEDS ORDERED: PROCARDIA XL30 MG ORAL (10:02)
[2020-02-19] MEDS ORDERED: HEPARIN SO5000 UNIT2 SUBQ (10:02)
[2020-02-19] MEDS ORDERED: FUROSEMIDE40 MG ORAL (10:06)
[2020-02-19] MEDS ORDERED: MEROPENEM-1 GM/50 ML IV (10:22)
[2020-02-19 12:00] VITALS: BP 112/86
--- NOTE | 2020-02-19 12:28 | Cardiac Electrophysiology PN ---
Assessment/Plan Assessment/Plan 1. Accelerated hypertension. On Procardia XL 30 mg daily, Cozaar 50 mg daily and Lasix 40 po daily. On p.r.n. clonidine 0.1 mg. EF 65%. 2. S/P right basal ganglia CVA. 3. History of laparotomy. 4. Failure to thrive. 5. Recent UTI 6. SOB and high D Dimer. Chest CT angio No PE. EF 65% 7 . Refused EGD FU Dr Alexus GAONA RN Subjective Subjective Chest CT angio showed no PE. EF 65%. EGD cancelled per pt refusal Objective Last 24 Hour Vital Signs Date Time Temp Pulse Resp B/P (MAP) Pulse Ox O2 Delivery O2 Flow Rate FiO2 02/19/20 09:00 Room Air 02/19/20 08:48 127/69 02/19/20 08:47 99 127/69 02/19/20 08:00 98.7 99 20 127/69 (88) 94 02/19/20 08:00 98.7 99 20 127/69 (88) 94 02/19/20 04:00 99.1 101 19 122/82 (95) 97 02/19/20 00:00 98.6 90 18 145/76 (99) 97 02/18/20 21:00 Room Air 02/18/20 20:00 99.3 104 19 156/91 (112) 96 02/18/20 16:00 97.8 86 19 151/79 (103) 96 Intake and Output 02/18/20 02/19/20 18:59 06:59 Intake Total 350 ml 120 ml Output Total 1800 ml 400 ml Balance -1450 ml -280 ml Intake Oral 350 ml 120 ml Output Urine Total 1800 ml 400 ml # Bowel Movements 1 Objective HEAD AND NECK: No JVD. LUNGS: Decreased breath sounds. CARDIOVASCULAR: Regular S1 and S2 with no gallop or murmur. ABDOMEN: Soft. EXTREMITIES: 2+ pitting edema. Chato Oliveira MD Feb 19, 2020 12:28
[2020-02-19] MEDS: D5 1/2NS 1,000 ML IV SCH (12:35)
--- NOTE | 2020-02-19 12:48 | Surgery Progress Note ---
Surgery Progress Note Subjective Symptoms: improved, tolerating diet, passing flatus, BM Objective Last 24 Hour Vital Signs Date Time Temp Pulse Resp B/P (MAP) Pulse Ox O2 Delivery O2 Flow Rate FiO2 02/19/20 12:00 98.9 100 18 112/86 (95) 93 02/19/20 09:00 Room Air 02/19/20 08:48 127/69 02/19/20 08:47 99 127/69 02/19/20 08:00 98.7 99 20 127/69 (88) 94 02/19/20 08:00 98.7 99 20 127/69 (88) 94 02/19/20 04:00 99.1 101 19 122/82 (95) 97 02/19/20 00:00 98.6 90 18 145/76 (99) 97 02/18/20 21:00 Room Air 02/18/20 20:00 99.3 104 19 156/91 (112) 96 02/18/20 16:00 97.8 86 19 151/79 (103) 96 I&O Intake and Output 02/18/20 02/19/20 18:59 06:59 Intake Total 350 ml 120 ml Output Total 1800 ml 400 ml Balance -1450 ml -280 ml Intake Oral 350 ml 120 ml Output Urine Total 1800 ml 400 ml # Bowel Movements 1 Dressing: dry Wound: clean Cardiovascular: RSR Respiratory: clear Abdomen: soft, non-tender, present bowel sounds Extremities: no edema, no tenderness, no cyanosis Plan Problems: (1) Decubitus skin ulcer Assessment & Plan: Pt presented on admission with Full thickness Pressure Injury Sacrum/R Buttocks. Base of wound is moist,lindsey with scattered areas of Slough, and Biofilm, Borders are irregular. Small amt serosanguineous exudate.(L)7cm x (W)7.5cm x(D)0.2cm. Surrounding non-blanchable erythema with additional shearing periwound. Unstageable Pressure Injury Maria D Cleft of Buttocks(L)2.5cm x (W)0.9cm. Base of Pressure Injury is 95% slough,5% lindsey with surrounding non-blanching erythema. Scattered epithelial and hyperpigmentation noted to L buttocks. R lower extremity internally rotated. Xerosis skin Bilat lower ext. An area of hyperpigmentation noted to R tibia. Both heels are non-blanchable but wihtou fluctuance. Pt complained both heels are tender to minimal touch. Tx.Plan: Cleanse wounds Buttocks with Saline. Apply Therahoney . Apply Moisture Barrier Paste Periwound. Cover with Optifoam drsg. Change every 3 days and prn. Moisturize Both lower ext with Phytoplex Lotion. Apply Cavilon Skin Barrier to both heels and Malleoli. Cover each site with Optifoam drsg. Change every 7 days and prn. Reposition at least every 2hours or as tolerated. Off-load heels with Pillow. Pulmonary arteries are well-opacified. No definite intraluminal filling defects or other findings to suggest pulmonary emboli are demonstrated. Normal caliber pulmonary arteries. No evidence of thoracic aortic aneurysm or dissection. No evidence of right ventricular dilatation. The lungs demonstrate a slight mosaic perfusion pattern. There is elevation of the right hemidiaphragm. This results in atelectatic changes of the base of the right lower lobe. There is also some crowding of the bronchovascular markings in the left lower lobe. No definite infiltrates, effusions, masses, or nodules are demonstrated. The esophagus is markedly dilated gas-filled proximally, fluid-filled distally. The dilatation appears to extend to the distal esophagus. The heart is borderline enlarged. No pericardial effusion demonstrated. No mediastinal or hilar mass or adenopathy. The thyroid demonstrates a 19 mm low-attenuation lesion in the lower pole of the left lobe. No axillary or chest wall mass or adenopathy. There appears to be a very large joint effusion surrounding the left humeral head. There are chronic appearing erosive changes of the limit and to a lesser extent the humeral head. No axillary or chest wall mass or adenopathy. There is degenerative spondylosis noted. The included upper abdominal anatomy is unremarkable. Impression: No evidence of acute pulmonary embolus or other acute thoracic vascular pathology Elevated right hemidiaphragm. Resultant basilar atelectatic changes. No definite infiltrates Borderline cardiomegaly Slight mosaic pulmonary perfusion pattern. There is a broad differential, but possibly on the basis of very mild pulmonary edema Markedly dilated gas and fluid-filled esophagus. Most likely secondary to distal dysmotility, but given the degree of distention the possibility of the downstream obstructive lesion should also be considered. Large left humeral head joint effusion. Fairly extensive chronic appearing erosive changes of the glenoid could be due to degenerative changes, but given the large effusion the possibility of septic arthropathy should also be considered. Correlate with clinical findings and history. Findings discussed by phone with Dr. Olivas at the time of interpretation (2) Nephrolithiasis (3) UTI (urinary tract infection) (4) FTT (failure to thrive) in adult Assessment & Plan: DAILY ESTIMATED NEEDS: Needs based on Wound, obese, cardiac 63.6abw 25-30 kcals/kg 3331-6607 total kcals 1.25-1.5 g protein/kg 80-95 g total protein Fluid per MD, on lasix NUTRITION DIAGNOSIS: Decreased sodium needs r/t h/o CVA as evidenced by pt w/ HTN, elev BP on adm, now on lasix. CURRENT DIET: Regular diet, ms finely chopped PO DIET RECOMMENDATIONS: LOW NA DIET (texture per [facility]) ADDITIONAL RECOMMENDATIONS: 1) Maintain calibrated bed scale wts 2) Monitor for continued good po intake 3) F/up w/ WC eval 4) Monitor lytes daily on lasix 5) F/up w/ PO intake, need for snacks, supplements Aaron Thomas Feb 19, 2020 12:48
--- NOTE | 2020-02-19 15:29 | Infectious Diseases Prog Note ---
Assessment/Plan Assessment/Plan Late note entry: ASSESSMENT AND PLAN: 1. esbl proteus complicated uti with FTT, weakness, + ua - meropenem - day # 5 - give x 3 days more for 7 day course - monitor labs - communicated with Simona Rios NP about discharge antibiotic meropenem 2. CVA with right-sided weakness and dysarthria. 3. Kidney stone. 4. Urology been consulted. 5. Hypertension. 6. Blood pressure treatment per Dr. Olivas. 7. History of diverticulitis requiring surgery in the past. 8. No history of diabetes or cancer. 9. Monitor for aspiration with history of CVA and right-sided weakness. 10. No evidence or signs and symptoms of COVID-19 infection. 11. Allergies to acetaminophen, lisinopril, and oxycodone. She also told me penicillin, but that is not documented. I am not clear. She tolerated Rocephin. 12. Family history is noncontributory. 13. Social history is negative. 14. MAR is noted. 15. Case was discussed also with the RN. 16. Case discussed with Dr. Olivas. 17. Continue treatment per primary consultants. Subjective Constitutional: Denies: fever HEENT: Denies: congestion Respiratory: Reports: other - sats stable ; Denies: shortness of breath Cardiovascular: Denies: chest pain Gastrointestinal/Abdominal: Denies: nausea, vomiting, diarrhea Neurologic: Denies: headache Psychiatric: Reports: other - NA Skin: Denies: rash Hematologic: Denies: bleeding Musculoskeletal: Denies: pain Allergies: Coded Allergies: ACETAMINOPHEN (Unverified Allergy, Unknown, 02/12/20) CODEINE (Unverified Allergy, Unknown, 02/12/20) LISINOPRIL (Verified Allergy, Unknown, 02/01/20) OXYCODONE (Verified Allergy, Unknown, 02/01/20) Objective Last 24 Hour Vital Signs Date Time Temp Pulse Resp B/P (MAP) Pulse Ox O2 Delivery O2 Flow Rate FiO2 02/19/20 12:00 98.9 100 18 112/86 (95) 93 02/19/20 09:00 Room Air 02/19/20 08:48 127/69 02/19/20 08:47 99 127/69 02/19/20 08:00 98.7 99 20 127/69 (88) 94 02/19/20 08:00 98.7 99 20 127/69 (88) 94 02/19/20 04:00 99.1 101 19 122/82 (95) 97 02/19/20 00:00 98.6 90 18 145/76 (99) 97 02/18/20 21:00 Room Air 02/18/20 20:00 99.3 104 19 156/91 (112) 96 02/18/20 16:00 97.8 86 19 151/79 (103) 96 Height (Feet): 5 Height (Inches): 5.00 Weight (Pounds): 180 General Appearance: no acute distress HEENT: normocephalic, atraumatic, anicteric Respiratory/Chest: lungs clear, normal breath sounds, no respiratory distress, rhonchi - bilaterally Cardiovascular: normal rate, regular rhythm Abdomen: normal bowel sounds, soft, non tender, no organomegaly, non distended Genitourinary: other - no cva pain Extremities: no cyanosis Skin: no rash 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 Resultant basilar atelectatic changes. No definite infiltrates Borderline cardiomegaly Slight mosaic pulmonary perfusion pattern. There is a broad differential, but possibly on the basis of very mild pulmonary edema Markedly dilated gas and fluid-filled esophagus. Most likely secondary to distal dysmotility, but given the degree of distention the possibility of the downstream obstructive lesion should also be considered. Large left humeral head joint effusion. Fairly extensive chronic appearing erosive changes of the glenoid could be due to degenerative changes, but given the large effusion the possibility of septic arthropathy should also be considered. Correlate with clinical findings and history. Chest x-ray - 02/13/20 - Procedure: XRAY Chest 1v Indication: Shortness of breath Technique: One view of the chest Comparison: none Findings: Inspiration is suboptimal. There is crowding of the bronchovascular markings at the lung bases. The heart size is upper limits of normal. Impression: Hypoventilatory exam. No definite acute abnormality Microbiology Date/Time Source Procedure Growth Status 02/19/20 11:30 Nasopharynx SARS-CoV-2 RdRp Gene Assay - Final Complete 02/12/20 15:30 Urine,Clean Catch Urine Culture - Final Proteus Mirabilis Esbl Complete 02/12/20 14:00 Blood Blood Culture - Final NO GROWTH AFTER 5 DAYS Complete Microbiology Date/Time Source Procedure Growth Status 02/19/20 11:30 Nasopharynx SARS-CoV-2 RdRp Gene Assay - Final Complete Labs Test 02/17/20 04:55 02/18/20 04:50 White Blood Count 5.6 K/UL (4.8-10.8) 5.4 K/UL (4.8-10.8) Red Blood Count 5.25 M/UL (4.20-5.40) 5.20 M/UL (4.20-5.40) Hemoglobin 12.8 G/DL (12.0-16.0) 12.6 G/DL (12.0-16.0) Hematocrit 40.9 % (37.0-47.0) 40.4 % (37.0-47.0) Mean Corpuscular Volume 78 FL (80-99) 78 FL (80-99) Mean Corpuscular Hemoglobin 24.3 PG (27.0-31.0) 24.3 PG (27.0-31.0) Mean Corpuscular Hemoglobin Concent 31.3 G/DL (32.0-36.0) 31.3 G/DL (32.0-36.0) Red Cell Distribution Width 16.4 % (11.6-14.8) 15.7 % (11.6-14.8) Platelet Count 480 K/UL (150-450) 475 K/UL (150-450) Mean Platelet Volume 5.1 FL (6.5-10.1) 5.4 FL (6.5-10.1) Neutrophils (%) (Auto) 43.3 % (45.0-75.0) 41.7 % (45.0-75.0) Lymphocytes (%) (Auto) 38.8 % (20.0-45.0) 40.9 % (20.0-45.0) Monocytes (%) (Auto) 9.7 % (1.0-10.0) 8.0 % (1.0-10.0) Eosinophils (%) (Auto) 5.8 % (0.0-3.0) 6.6 % (0.0-3.0) Basophils (%) (Auto) 2.4 % (0.0-2.0) 2.8 % (0.0-2.0) Sodium Level 142 MMOL/L (136-145) 144 MMOL/L (136-145) Potassium Level 4.2 MMOL/L (3.5-5.1) 3.9 MMOL/L (3.5-5.1) Chloride Level 108 MMOL/L (98-107) 109 MMOL/L (98-107) Carbon Dioxide Level 28 MMOL/L (21-32) 28 MMOL/L (21-32) Blood Urea Nitrogen 8 mg/dL (7-18) 9 mg/dL (7-18) Creatinine 0.6 MG/DL (0.55-1.30) 0.6 MG/DL (0.55-1.30) Estimat Glomerular Filtration Rate > 60 mL/min (>60) > 60 mL/min (>60) Glucose Level 97 MG/DL (74-106) 96 MG/DL (74-106) Calcium Level 8.8 MG/DL (8.5-10.1) 8.4 MG/DL (8.5-10.1) Total Bilirubin 0.2 MG/DL (0.2-1.0) 0.2 MG/DL (0.2-1.0) Aspartate Amino Transf (AST/SGOT) 11 U/L (15-37) 12 U/L (15-37) Alanine Aminotransferase (ALT/SGPT) 14 U/L (12-78) 12 U/L (12-78) Alkaline Phosphatase 105 U/L (46-116) 99 U/L (46-116) Total Protein 5.8 G/DL (6.4-8.2) 6.1 G/DL (6.4-8.2) Albumin 2.8 G/DL (3.4-5.0) 2.6 G/DL (3.4-5.0) Globulin 3.0 g/dL 3.5 g/dL Albumin/Globulin Ratio 0.9 (1.0-2.7) 0.7 (1.0-2.7) Anion Gap 7 mmol/L (5-15) Darrell Snell MD Feb 19, 2020 15:29
--- NOTE | 2020-02-19 20:34 | General Progress Note ---
Subjective Allergies: Coded Allergies: ACETAMINOPHEN (Unverified Allergy, Unknown, 02/12/20) CODEINE (Unverified Allergy, Unknown, 02/12/20) LISINOPRIL (Verified Allergy, Unknown, 02/01/20) OXYCODONE (Verified Allergy, Unknown, 02/01/20) Subjective Feels OK no new symptoms no choking or vomiting Objective Last 24 Hour Vital Signs Date Time Temp Pulse Resp B/P (MAP) Pulse Ox O2 Delivery O2 Flow Rate FiO2 02/19/20 12:00 98.9 100 18 112/86 (95) 93 02/19/20 09:00 Room Air 02/19/20 08:48 127/69 02/19/20 08:47 99 127/69 02/19/20 08:00 98.7 99 20 127/69 (88) 94 02/19/20 08:00 98.7 99 20 127/69 (88) 94 02/19/20 04:00 99.1 101 19 122/82 (95) 97 02/19/20 00:00 98.6 90 18 145/76 (99) 97 02/18/20 21:00 Room Air Intake and Output 02/18/20 02/19/20 19:00 07:00 Intake Total 350 ml 195 ml Output Total 1800 ml 400 ml Balance -1450 ml -205 ml Intake Oral 350 ml 120 ml IV Total 75 ml Output Urine Total 1800 ml 400 ml # Bowel Movements 1 Height (Feet): 5 Height (Inches): 5.00 Weight (Pounds): 180 Objective Elderly AA woman NCAT supple CTA RR abd soft flat NT Neuro (R) nasreen, dysarthria Assessment/Plan Assessment/Plan: Assessment - (L) hemispheric CVA with resultant dysarthria - markedly dilated esophagus on CT - Possibly achalasia - patient declines EGD - understands indications - HTN - urolithiasis Recommendations - no EGD planned per pt refusal - PPI - mechanical soft diet - d/c planning Cristobal Vaughan MD Feb 19, 2020 20:34
--- NOTE | 2020-02-19 22:58 | Psych Consult Progress Note ---
Psychiatry Progress Note Psychiatry Progress Note Subjective the pt is the same. she perseverated that wants to go home poor memory poor insight irrational Neurological/Psychiatric: Reports: anxiety Allergies: Coded Allergies: ACETAMINOPHEN (Unverified Allergy, Unknown, 02/12/20) CODEINE (Unverified Allergy, Unknown, 02/12/20) LISINOPRIL (Verified Allergy, Unknown, 02/01/20) OXYCODONE (Verified Allergy, Unknown, 02/01/20) Objective Data Height (Feet): 5 Height (Inches): 5.00 Weight (Pounds): 180 Additional Comments: alert, oriented times self, place, and situation. Mood is anxious. Affect is blunted. Congruent mood. Thought process is concrete. Thought content, no suicidal or homicidal ideation. Cognition is impaired. Insight and judgment is impaired. Assessment/Plan [place] I: [place] I Anxiety disorder. Vascular dementia. [place] II Deferred. [place] III CVA. Failure to thrive. [place] IV Moderate. [place] V 20. PLAN: 1. The patient lacks capacity to make decision. She is very irrational, unable to understand the risks versus benefits of the situation she is in and recommendation given to her. 2. We will start the Remeron 15 mg for weight loss and failure to thrive. 3. The patient will benefit from SNF or 24-hour care at home. Status Narrative [place] I Anxiety disorder. Vascular dementia. [place] II Deferred. [place] III CVA. Failure to thrive. [place] IV Moderate. [place] V 20. PLAN: 1. The patient lacks capacity to make decision. She is very irrational, unable to understand the risks versus benefits of the situation she is in and recommendation given to her. 2. We will start the Remeron 15 mg for weight loss and failure to thrive. 3. The patient will benefit from SNF or 24-hour care at home. Assessment/Plan: [place] I Anxiety disorder. Vascular dementia. [place] II Deferred. [place] III CVA. Failure to thrive. [place] IV Moderate. [place] V 20. PLAN: 1. The patient lacks capacity to make decision. She is very irrational, unable to understand the risks versus benefits of the situation she is in and recommendation given to her. 2. We will start the Remeron 15 mg for weight loss and failure to thrive. 3. The patient will benefit from SNF or 24-hour care at home. Kalen Andrade MD Feb 19, 2020 22:57
--- NOTE | 2020-02-20 14:59 | Discharge Summary ---
Discharge Summary Discharge Summary _ DATE OF ADMISSION: 02/12/2020 DATE OF DISCHARGE: 02/19/2020 DISCHARGED BY: Dr. Olivas REASON FOR ADMISSION: 84 years old female with past medical history of a CVA, nephrolithiasis, recent nonobstructive stone, UTI , status post treatment, presented from home with progressive weakness. No fever or chills. No chest pain. No shortness of breath. No nausea, vomiting, diarrhea, constipation, no abdominal pain or urinary complaints. Upon evaluation vital signs revealed elevated blood pressure 190/90. Laboratory work-up revealed no leukocytosis , stable hemoglobin and hematocrit. Stable electrolytes and renal parameters. Stable LFT. Albumin 3.2. TSH within normal limits. Urinalysis revealed +3 leukocyte esterase , pyuria ,many bacteria ,and moderate yeast. Chest x-ray demonstrated no definite acute abnormality. Patient subsequently admitted to the floor for further management for failure to thrive ,possible UTI , elevated blood pressure. CONSULTANTS: attorney Dr. Wright ID specialist Dr. Alcazar orthopedic surgeon Dr. Silver GI specialist Dr. Vaughan surgery Dr. Thomas psychiatrist Dr. Andrade HOSPITAL COURSE: Patient admitted to medical surgical floor abd started on gentle IV hydration. CTA of the chest revealed no evidence of acute pulmonary emboli or other acute thoracic vascular pathology. Resultant basilar atelectatic changes. No definite infiltrates. Borderline cardiomegaly. Slight mosaic pulmonary perfusion pattern. Very mild pulmonary edema. Markedly dilated gas and fluid-filled esophagus, most likely secondary to distal dysmotility , but given the degree of distention the possibility of the downstream obstructive lesion should also be considered. Large left humeral head joint effusion. Fairly extensive, chronic appearing, erosive changes of the glenoid , could be due to degenerative changes , but given the left effusion the possibility of septic arthritis should be considered. GI specialist seen and evaluated patient. Patient declined EGD. Patient had an esophagram , which revealed dilated atonic esophagus. No definite stricture or mucosal irregularity to suggest mass. Probably mild achalasia. Urine culture revealed Proteus ESBL. Patient started on meropenem as per ID specialist recommendation. ID specialist recommended additional 3 days of treatment with antibiotic at the facility. Blood pressure was managed with nifedipine , lisinopril and Lasix. Clonidine was on board as needed for blood pressure spikes. Blood pressure improved. Second troponin was negative as well . Echocardiogram revealed preserved ejection fraction. TSH was within normal limits. Venous duplex bilateral lower extremity was negative. DVT prophylaxis provided. Volumes were closely monitored along with renal parameters and electrolytes. Electrolytes corrected as needed. Diet texture provided as per speech therapist recommendation with aspiration precaution after completion of bedside swallow evaluation. MRI of the brain revealed no acute intracranial pathology. Patient undergone 3 views x-ray of of the left shoulder , which revealed severe degenerative changes , but no acute bony abnormality. Per orthopedic surgeon , patient had severe osteoarthritis left shoulder. Orthopedic surgeon recommended conservative management with anti-inflammatory and activity modification. No restriction. Consideration for total shoulder replacement at her age would not be reasonable to consider. Pain management was addressed as needed. Symptomatic treatment provided. Fall precautions maintain . Patient was working with physical therapist. Bowel regimen instituted. Wound care provided as per surgeon recommendation. Family initially had mixed opinions regarding disposition. However, caregiver was available only part-time , and patient clearly was not able to care for herself. Psychiatrist seen and evaluated patient and concluded that patient lacked mental capacity to make informed decisions. Psychiatrist recommended 24 hours caregiver at home or penitentiary facility. Patient started on Remeron as per psychiatrist. Family eventually agreed to penitentiary facility placement [facility]. Patient was stable for discharge. Patient to continue antibiotic for additional 3 days as advised by ID specialist to complete the course. 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 DISCHARGE INSTRUCTIONS: Patient was discharged to the [facility] facility. Follow up with medical doctor at the facility. Simona Rios NP Feb 20, 2020 14:59
== END 2020-02-19 13:22 | DRG 690 ==
LOC: EDBD 12:54 → EMR 13:30 → 3E 14:34 → EDBEDREQ 15:42
DX: N39.0 Urinary tract infection, site not specified (principal); G82.20 Paraplegia, unspecified; I69.351 Hemiplegia and hemiparesis following cerebral infarction affecting right dominant side; E46 Unspecified protein-calorie malnutrition; Z16.12 Extended spectrum beta lactamase (ESBL) resistance; L89.156 Pressure-induced deep tissue damage of sacral region; I16.0 Hypertensive urgency; R62.7 Adult failure to thrive; N20.0 Calculus of kidney; I69.322 Dysarthria following cerebral infarction; I10 Essential (primary) hypertension; K59.00 Constipation, unspecified; K22.0 Achalasia of cardia; M19.012 Primary osteoarthritis, left shoulder; B96.4 Proteus (mirabilis) (morganii) as the cause of diseases classified elsewhere; Z88.6 Allergy status to analgesic agent; Z88.8 Allergy status to other drugs, medicaments and biological substances; F41.9 Anxiety disorder, unspecified; F01.50 Vascular dementia, unspecified severity, without behavioral disturbance, psychotic disturbance, mood disturbance, and anxiety; Z68.30 Body mass index [BMI] 30.0-30.9, adult
CPT/HCPCS: 36415; 70551; 71045; 71275; 74220; 80053; 81003; 83540; 83550; 83880; 84443; 84484; 85025; 85379; 87040; 87086; 87181; 93306; 93970; 99285; J7030; J8499; U0002